=== PATIENT | male | born 1940 | race Caucasian/White ===

== ENCOUNTER → 2018-04-24 09:01 | Outpatient (POV) | payer MEDICARE, BC, SELFPAY | PROVIDERS: PCP Family Medicine; Visit Provider Otolaryngology | DX: Z00.00 Encounter for general adult medical examination without abnormal findings (principal) ==

== ENCOUNTER → 2018-05-07 09:15 | Outpatient (POV) | payer MEDICARE, BC, SELFPAY ==
[2018-05-07 09:19] VITALS: BP 150/87; PULSE 85; RESP 18; O2SAT 99
--- NOTE | 2018-05-07 10:46 | HMH.PMCON ---
Assessment and Plan (1) Right hip pain Current visit: Yes Status: Chronic Category: Medical Code(s): M25.551 - Pain in right hip (2) Neuropathy Current visit: Yes Status: Chronic Category: Medical Code(s): G62.9 - Polyneuropathy, unspecified - Assessment and plan all Dx Assessment and Plan for all problems:: I gave the patient information on neuro stimulation. I believe he would be a potential DRG stimulator candidate due to his specific right hip pain. I answered the patient's questions. Patient is going to call if he is interested in pursuing this avenue of treatment. This note was dictated using voice recognition software and may contain errors or omissions HPI - Data of Consult Consult date: 05/07/18 Requesting Physician: Sabina Montero APRN Primary Care Provider: Kerri Capone Family Provider: Referral Provider, - Consult Narrative Reason for consult: Right hip pain, neuropathy, pain due to kidney stents History of present illness: Mr. Graff is a 78 year old male presents today for completion in regards to his pain. Patient has multiple areas of pain including his right hip and right leg. Patient also has kidney stones that are placed every 3 months. Patient states that these are very painful for him. Patient primary care physician has been weaning him off his [place]. Patient states that he feels he would like to continue with his original Lortab #120 prescription. Patient and I had a discussion about neuro stimulation and works to his neuropathy and right hip pain. Patient is somewhat interested in this and I answered his questions. I also provided information for him. Patient and I discussed that we do not do medication management at this clinic. Patient rates his pain 4 out of 10 today. Mostly in his right hip. Patient states that walking and riding his lawnmower makes his pain worse. Patient states he has numbness and tingling in his right leg all the way down to his foot. Patient has had a right hip replacement in the past. Patient's tried physical therapy along with medications and anti-inflammatories are contraindicated due to his kidney issues. CC: Sabina Montero APRN [facility] History I have reviewed the patient's past medical history: Yes Medical History: Reports:: Cancer, Hyperlipidemia, Hypertension, Kidney Stones, Myocardial Infarction, Renal Disease Denies:: Diabetes Mellitus Type 1, Diabetes Mellitus Type 2, Internal Pacemaker Laterality Cases: Right: Total Hip Replacement Other Surgeries: Yes: Coronary Stent, Hernia Repair, Other (open heart surgery, kidney stones removed). No: Pacemaker Amputation: No Fractures: No - *Social History Smoking Status: Never smoker Tobacco Type: cigarettes # Packs/Day (cigarettes): 1 #Yrs smoked (if former smoker): 32 Alcohol Intake: never Alcohol Intake Frequency:: other Substance Use Type: denies use Occupational Status: retired Housing: house Household Members: spouse - Psychiatric History Expresses thoughts of harming self/others: None Suicide Plan Description: No Plan *Family Hx:: No significant family history Review of Systems - Review of Systems ROS General: no recent weight change, no fever, no sleep disturbances Respiratory: no cough, no shortness of air, no recurring pulmonary infections Cardiovascular/Peripheral Vascular: No chest pain, No palpitations, no edema, no shortness of breath. Gastrointestinal: no incontinence, normal bowel movements reported Genitourinary: no incontinence Musculoskeletal: Right hip pain, right leg pain Psychiatric: normal mood/ affect Neurological: [denies weakness in extremities], [denies balance issues] Meds Home Medications Medication Instructions Recorded Confirmed Type atorvastatin 40 mg tablet 40 mg PO HS 90 Days #90 01/18/18 03/18/18 History carvedilol 12.5 mg tablet 12.5 mg PO BID 90 Days #180 01/18/18 03/18/18 History furosemide 20 mg tablet 20 m
--- NOTE | 2018-05-07 10:49 | P.CONS_ITS ---
Assessment and Plan (1) Right hip pain Current visit: Yes Status: Chronic Category: Medical Code(s): M25.551 - Pain in right hip (2) Neuropathy Current visit: Yes Status: Chronic Category: Medical Code(s): G62.9 - Polyneuropathy, unspecified - Assessment and plan all Dx Assessment and Plan for all problems:: I gave the patient information on neuro stimulation. I believe he would be a potential DRG stimulator candidate due to his specific right hip pain. I answered the patient's questions. Patient is going to call if he is interested in pursuing this avenue of treatment. This note was dictated using voice recognition software and may contain errors or omissions HPI - Data of Consult Consult date: 05/07/18 Requesting Physician: Sabina Montero APRN Primary Care Provider: Kerri Capone Family Provider: Referral Provider, - Consult Narrative Reason for consult: Right hip pain, neuropathy, pain due to kidney stents History of present illness: Mr. Graff is a 78 year old male presents today for completion in regards to his pain. Patient has multiple areas of pain including his right hip and right leg. Patient also has kidney stones that are placed every 3 months. Patient states that these are very painful for him. Patient primary care physician has been weaning him off his [place]. Patient states that he feels he would like to continue with his original Lortab #120 prescription. Patient and I had a discussion about neuro stimulation and works to his neuropathy and right hip pain. Patient is somewhat interested in this and I answered his questions. I also provided information for him. Patient and I discussed that we do not do medication management at this clinic. Patient rates his pain 4 out of 10 today. Mostly in his right hip. Patient states that walking and riding his lawnmower makes his pain worse. Patient states he has numbness and tingling in his right leg all the way down to his foot. Patient has had a right hip replacement in the past. Patient's tried physical therapy along with medications and anti-inflammatories are contraindicated due to his kidney issues. CC: Sabina Montero APRN [facility] History I have reviewed the patient's past medical history: Yes Medical History: Reports:: Cancer, Hyperlipidemia, Hypertension, Kidney Stones, Myocardial Infarction, Renal Disease Denies:: Diabetes Mellitus Type 1, Diabetes Mellitus Type 2, Internal Pacemaker Laterality Cases: Right: Total Hip Replacement Other Surgeries: Yes: Coronary Stent, Hernia Repair, Other (open heart surgery, kidney stones removed). No: Pacemaker Amputation: No Fractures: No - *Social History Smoking Status: Never smoker Tobacco Type: cigarettes # Packs/Day (cigarettes): 1 #Yrs smoked (if former smoker): 32 Alcohol Intake: never Alcohol Intake Frequency:: other Substance Use Type: denies use Occupational Status: retired Housing: house Household Members: spouse - Psychiatric History Expresses thoughts of harming self/others: None Suicide Plan Description: No Plan *Family Hx:: No significant family history Review of Systems - Review of Systems ROS General: no recent weight change, no fever, no sleep disturbances Respiratory: no cough, no shortness of air, no recurring pulmonary infections Cardiovascular/Peripheral Vascular: No chest pain, No palpitations, no edema, no shortness of breath. Gastrointestinal: no incontinence, normal bowel movements reported Genitourinary: no incontinence Musculoskeletal: Right h
== END ==
PROVIDERS: PCP Family Medicine; Visit Provider Clinical Nurse Specialist Family Health
DX: G62.9 Polyneuropathy, unspecified (principal); M25.551 Pain in right hip
CPT/HCPCS: 99202

== ENCOUNTER 2018-05-12 20:50 | Observation (INO) ==
--- NOTE | 2018-05-12 21:39 | Emergency Department Note ---
ED Disposition Clinical Impression: Hypoxia Acute exacerbation of CHF (congestive heart failure) Qualifiers: Heart failure type: systolic Qualified Code(s): I50.23 - Acute on chronic systolic (congestive) heart failure Disposition: Admitted As Inpatient Condition on Discharge: Fair Time of Disposition: 23:39 - Critical Care Critical Care Time: Yes Attestation: On 05/12/18, the high probability of a clinically significant, sudden or life threatening deterioration of the following system(s) required my full and direct attention, intervention and personal management. The time I documented below is in addition to time spent performing reported procedures but includes the following listed in this critical care notation. Total Critical Care Time: 45 Vital system(s) involved:: Circulatory Failure, Respiratory Failure My critical care processes included: Assessment & monitoring of V/S, Initial and Re-exams, Data Review/Interpretation, Coordinating Care, Medication Orders and management, Documentation Medical Decision Making - Medical Records Medical records reviewed: Yes: I reviewed the patient's medical records. - Alex Inquiry Pt receiving controlled substance: No Vital Signs: 05/12/18 20:55 05/12/18 23:55 Temperature 98.7 F 98.4 F Temperature Source Oral Oral Pulse Rate 73 Pulse Rate [Right Radial] 80 Respiratory Rate 18 18 Blood Pressure 146/69 Blood Pressure [Right Arm] 180/80 Blood Pressure Mean [Right Arm] 113 Blood Pressure Source Automatic Cuff Blood Pressure Source [Right Arm] Automatic Cuff Blood Pressure Position Sitting Blood Pressure Position [Right Arm] Sitting 02 Sat by Pulse Oximetry 93 L Oxygen Delivery Method Nasal Cannula Nasal Cannula Oxygen Flow Rate (LPM) 4 4 - Lab Data Lab results reviewed: Yes: I reviewed the patient's lab results. Lab Results 05/12/18 00:15: Troponin I < 0.02 05/12/18 21:48: WBC 8.7, RBC 4.27 L, Hgb 13.3 L, Hct 44.8, MCV 105.0 H, MCH 31.1 , MCHC 29.6 L, RDW 15.3, Plt Count 202, MPV 7.7, Neut % (Auto) 51.2, Lymph % ( Auto) 37.3, [place] % (Auto) 8.4, Eos % (Auto) 2.8, Baso % (Auto) 0.4, Neut # (Auto ) 4.4, Lymph # (Auto) 3.2, [place] # (Auto) 0.7, Eos # (Auto) 0.2, Baso # (Auto) 0.0 05/12/18 21:48: Sodium 139, Potassium 4.1, Chloride 106, Carbon Dioxide 25, Anion Gap 12.1, BUN 23 H, Creatinine 2.35 H, Estimated Creat Clear 33, Estimated GFR 27 L, Est GFR ( Amer) 33 L, Glucose 109 H, Calcium 8.5, Total Bilirubin 0.6, AST 25, ALT 25, Alkaline Phosphatase 104, Troponin I < 0.02 , Total Protein 7.2, Albumin 3.7, Globulin 3.5 H, Albumin/Globulin Ratio 1.1, Amylase 56, Lipase 93 05/12/18 21:48: B-Natriuretic Peptide 570 H 05/12/18 22:21: Urine Color Yellow, Urine Appearance Sl cloudy, Urine pH 6.5, Ur Specific [place] 1.020, Urine Protein 2+, Urine Glucose (UA) Negative, Urine Ketones Negative, Urine Blood 3+, Urine Nitrate Negative, Urine Bilirubin Negative, Urine Urobilinogen 0.2, Ur Leukocyte Esterase Trace, Urine RBC Tntc, Urine WBC 3-5 Result diagrams: 05/12/18 21:48 05/12/18 21:48 Orders (Tests/Meds): ED MEDICATIONS Generic Name Dose Route Start Last Admin Trade Name Shannon PRN Reason Stop Dose Admin Hydrocodone Bitart/Acetaminophen tab 05/12/18 23:53 [place] 10/325mg Tablet PO 06/11/18 23:52 DAILY PRN [place] Moderate Pain Amlodipine Besylate 5 mg 05/13/18 09:00 Norvasc 5mg Tablet PO 06/12/18 08:59 DAILY BLANCA Aspirin 81 mg 05/13/18 09:00 Aspirin 81mg Chewable Tablet PO 06/12/18 08:59 DAILY BLANCA Atorvastatin Calcium 40 mg 05/13/18 21:00 Lipitor 40mg Tablet PO 06/12/18 20:59 HS [facility] Carvedilol 12.5 mg 05/13/18 09:00 Coreg 12.5mg Tablet PO 06/12/18 08:59 BID BLANCA Furosemide 40 mg 05/13/18 09:00 Lasix 20mg/2ml Vial IV 06/12/18 08:59 DAILY BLANCA Gabapentin 300 mg 05/13/18 21:00 Neurontin 300mg Capsule PO 06/12/18 20:59 HS BLANCA Discontinued Medications Generic Name Dose Route Start Last Admin Trade Name Shannon PRN Reason Stop Dose Admin Furosemide 20 mg 05/13/18 09:00 Lasix 20mg/2ml Vial IV 06/12/18 08:59 DAILY BLAN[place] Furosemide 20 mg 05/13/18 21:10 Lasix 20mg/2ml Vial IV 05/13/18 21:11 ONCE ONE Furosemide 20 mg 05/12/18 21:10 05/12/18 21:10 Lasix 20mg/2ml Vial IV 05/12/18 21:11 20 mg ONCE ONE Administration Furosemide 20 mg 05/12/18 23:39 05/12/18 23:47 Lasix 20mg/2ml Vial IV 05/12/18 23:40 20 mg ONCE ONE Administration Methylprednisolone Sodium Succinate 125 mg 05/12/18 21:04 05/12/18 21:05 Solu-Medrol 125mg/2ml Vial IV 05/12/18 21:05 125 mg ONCE ONE Administration ORDERS Category Date Time Status Consult to Cardiology [CONS] Routine Cons 05/13/18 08:30 Active XR chest portable Stat Exams 05/12/18 21:04 Taken BNP [B-Type Natriuretic Peptide] Timed Lab 05/13/18 06:30 Ordered Troponin I Q3H Lab 05/13/18 05:53 Ordered ECG Request by /Millie Routine Y 05/13/18 06:30 Ordered - Radiology Data #1 Image(s): Chest Image Reviewed: Yes I reviewed the patient's radiology image Preliminary Findings: Abnormal Cardiomegaly with cephalization of interstitial markings, suggestive of CHF - ECG Data Tracing #1 I reviewed this ECG and interpreted as documented below: No acute ischemic changes, no ectopies, heart rate is 88 ECG normal with no acute: arrhythmias, ischemia, conduction abnormalities, chamber hypertrophy Normal Sinus Rhythm: Yes - Physician Consults Physician Consulted: Dr. Aviles Time: 23:35 Reason -: Admission, Pt condition Comment/Response: Advise of patient's presentation and findings, agreeable with hospitalization. - Reevaluation(s) Time: 23:30 Reevaluation #1: Upon evaluation patient appears medically stable, no acute distress, pulse oximetry 95% on 5 L, however as soon as patient is being taken off his oxygen supply his O2 saturation drops down to 89% room air. I advised the patient of his need to be hospitalized, and to receive further inpatient care. Resp/SOB HPI - General Chief Complaint: Shortness of Breath/Dyspnea Stated Complaint: sob Time Seen by Provider: 05/12/18 21:15 Mode of Arrival: EMS Source of Information: Patient Limitations: No Limitations Description of Symptoms (Recalled from ER Triage Doc. 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 Patient has advised that he has been working out in hot weather, in his shed all day long. He came to the house, took a nap, and became short of breath shortly afterwards. He advised that he has a history of congestive heart failure and chronic renal failure as well. 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 For the past 5 days the patient has been working outdoors more than usual, and has been occasionally taking 40 mg of Lasix at least on 2 different occasions. He denies any chest pain. His pulse oximetry upon EMS arrival at his residence was 87% on room air. He was placed on oxygen immediately. Upon arrival to the emergency room his pulse oximetry is 90% on 2 L, his O2 requirement was increased to 5 L/min, bringing his O2 saturation to 9495%. He took Lasix 20 mg orally prior to arrival to the emergency room, approximately 45 minutes ago, without any significant improvement of his symptoms. MD Complaint: shortness of breath Onset (ago): day(s) (5) Severity: moderate Consistency/Duration: constant Relieving factors: oxygen, rest Exacerbating factors: lying flat Known history of: congestive heart failure Associated symptoms: wheezing Treatment prior to arrival: oxygen - Related Data Home oxygen amount: none Home Medications Medication Instructions Recorded Confirmed atorvastatin 40 mg tablet 40 mg PO HS 90 Days #90 01/18/18 05/13/18 carvedilol 12.5 mg tablet 12.5 mg PO BID 90 Days #180 01/18/18 05/13/18 furosemide 20 mg tablet 20 mg PO DIRECTED 01/18/18 05/13/18 gabapentin 300 mg capsule 300 mg PO BID 30 Days #90 01/18/18 05/13/18 Aspirin [Aspirin 81mg chewable 81 mg PO DAILY 01/26/18 05/13/18 tab] Hydrocodone/Acetaminophen [Lortab 10 mg PO DAILY PRN 03/18/18 05/13/18 10/325mg tablet] Amlodipine Besylate [Norvasc 5mg 5 mg PO HS 05/12/18 05/13/18 tablet] Iron,Carb/Vit C/Vit B12/Folic 1 each PO BID 05/13/18 05/13/18 [Iron 100 Plus Tablet] Allergies Allergy/AdvReac Type Severity Reaction Status Date / Time kidney dye Allergy Uncoded 03/18/18 22:52 [facility] History I have reviewed the patient's past medical history: Yes Medical History: Reports:: Hyperlipidemia, Hypertension, Kidney Stones, Myocardial Infarction, Renal Disease Denies:: Cancer, Diabetes Mellitus Type 1, Diabetes Mellitus Type 2, Internal Pacemaker, MRSA Laterality Cases: Right: Total Hip Replacement Other Surgeries: Yes: Coronary Stent, Hernia Repair, Other (open heart surgery, kidney stones removed). No: Pacemaker Amputation: No Fractures: No - Social History Smoking Status: Former smoker Tobacco Type: cigarettes # Packs/Day (cigarettes): 1 #Yrs smoked (if former smoker): 32 Alcohol Intake: never Alcohol Intake Frequency:: other Substance Use Type: denies use Occupational Status: retired Housing: house Household Members: spouse - Psychiatric History Expresses thoughts of harming self/others: None Suicide Plan Description: No Plan Family Hx:: No significant family history ROS Obtained: Yes All systems reviewed & no additional complaints, Yes Systems reviewed as appropriate & no additional complaints - Respiratory Respiratory: Yes system reviewed and no additional complaints, except as docu, Yes as per HPI, Yes dyspnea Physical Exam - General General appearance: alert, in distress (moderate) - Head Head exam: atraumatic, normocephalic, normal inspection - Neck Neck exam: Present: normal inspection, full ROM, trachea midline. Absent: meningismus, lymphadenopathy - Chest Chest inspection: Present: normal inspection, symmetric chest wall rise. Absent : tenderness - Respiratory Respiratory exam: Present: respiratory distress (mild), wheezes (Inspiratory and expiratory) - Cardiovascular Cardiovascular exam: Present: regular rate, normal rhythm. Absent: JVD - Abdominal Exam Abdominal exam: Present: soft, normal bowel sounds. Absent: distention, tenderness, guarding - Extremities Exam Extremities exam: Present: normal inspection, full ROM, normal capillary refill. Absent: calf tenderness - Back Exam Back exam: Present: normal inspection. Absent: tenderness - Neurological Exam Neurological exam: Present: alert, oriented X3 - Psychiatric Psychiatric exam: Present: normal affect, normal mood - Skin Skin exam: Present: warm, dry, intact, normal color
[2018-05-12 21:57] LABS: Basophils % 0.4 % (0.1-2.0); Eosinophils # 0.2 K/mm3 (0.0-0.4); Eosinophils % 2.8 % (0.1-12.0); Hematocrit 44.8 % (42.0-52.0); Hemoglobin 13.3 g/dL (14.1-18.0); Lymphocytes # 3.2 K/mm3 (0.7-4.5); Lymphocytes % 37.3 K/mm3 (10-50); Mean Corpuscular HGB Conc 29.6 g/dL (31.8-35.4); Mean Corpuscular Hemoglobin 31.1 pg (27.0-31.2); Mean Platelet Volume 7.7 fl (7.4-10.4); Monocytes # 0.7 K/mm3 (0.1-1.0); Monocytes % 8.4 % (1.7-9.3); Neutrophils # 4.4 K/mm3 (1.8-7.8); Neutrophils % 51.2 % (37.0-80.0); Platelet Count 202 K/mm3 (142-424); Red Blood Count 4.27 M/mm3 (4.60-6.20); Red Cell Distribution Width 15.3 % (11.5-17.5); White Blood Count 8.7 K/mm3 (4.8-10.8)
[2018-05-12 22:12] LABS: Alanine Aminotransferase 25 U/L (12-78); Albumin Level 3.7 gm/dL (3.4-5.0); Albumin/Globulin Ratio 1.1 (1.1-1.8); Alkaline Phosphatase 104 U/L (46-116); Amylase 56 U/L (25-125); Anion Gap 12.1 mEq/L (5-15); Aspartate Amino Transferase 25 U/L (15-37); Bilirubin,Total 0.6 mg/dL (0.2-1.0); Blood Urea Nitrogen 23 mg/dL (7-18); Calcium 8.5 mg/dL (8.5-10.1); Carbon Dioxide 25 mmol/L (21.0-32.0); Chloride 106 mmol/L (98-107); Globulin 3.5 gm/dl (1.3-3.2); Glucose 109 mg/dL (74-106); Lipase 93 u/L (73-393); Potassium 4.1 mmoL/L (3.5-5.1); Sodium 139 mmol/L (136-145); Total Protein,Serum 7.2 gm/dL (6.4-8.2)
[2018-05-12 22:27] LABS: Microscopic, Urine URINE MICROSCOPIC (MICROSCOPIC)
[2018-05-12 22:30] LABS: Appearance,Urine SL CLOUDY (Clear); Bilirubin,Urine Negative (Negative); Blood, Urine 3+ (Negative); Color,Urine YELLOW (Yellow); Glucose,Urine (UA) Negative (Negative); Ketones,Urine Negative (Negative); Leukocyte Esterase,Urine TRACE (Negative); PH,Urine 6.5 (5.0-8.5); Protein,Urine 2+ (Negative); Urobilinogen,Urine 0.2 EU/dl (0.2)
[2018-05-12 22:46] LABS: RBC,Urine TNTC #/hpf (0-3)
[2018-05-13 08:54] VITALS: BP 152/85
--- NOTE | 2018-05-13 08:57 | H&P/Discharge Summary ---
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 Came to the emergency department where he was found to have evidence of CHF, and was treated with IV Lasix with some improvement but had an oxygen requirement which is new for him. He was admitted overnight for oxygenation therapy, another dose of IV Lasix and further observation. Patient moved here from [place] about 5 years ago. He has a family doctor in [place] but is wishing to change to a [facility] location. He is very pleasant and extremely loquacious and gives a long and detailed history of kidney dysfunction, some chronic pain issues managed with very sporadic use of Lortab, and his diastolic CHF issues. 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 [facility] History I have reviewed the patient's past medical history: Yes Medical History: Reports:: Congestive Heart Failure, Hyperlipidemia, Hypertension, Kidney Stones, Myocardial Infarction, Renal Disease Denies:: Cancer, Diabetes Mellitus Type 1, Diabetes Mellitus Type 2, Home Oxygen, Internal Pacemaker, MRSA Other Medical History: Reports: Chemotherapy, Radiation Therapy Laterality Cases: Right: Total Hip Replacement Other Surgeries: Yes: CABG, Coronary Stent, Hernia Repair, Open Heart Surgery, Ureter Stent, Other (open heart surgery, kidney stones removed). No: Pacemaker Amputation: No Fractures: No - *Social History Educational Level: Completed High School Smoking Status: Former smoker Tobacco Type: cigarettes # Packs/Day (cigarettes): 1 #Yrs smoked (if former smoker): 32 Alcohol Intake: never Alcohol Intake Frequency:: other Substance Use Type: denies use Occupational Status: retired Housing: house Household Members: spouse - Psychiatric History Expresses thoughts of harming self/others: None Suicide Plan Description: No Plan *Family Hx:: No significant family history Review of Systems - Review of Systems Review of systems:: pertinent systems reviewed and negative unless documented below Exam Vital signs and Labs for Last 24 Hours: Temp Pulse Resp BP Pulse Ox 97.7 F 76 18 108/56 98 05/13/18 04:00 06/24/18 04:00 05/13/18 04:00 05/13/18 04:00 05/13/18 04:00 Laboratory Results - last 24 hr 05/12/18 00:15: Troponin I < 0.02 05/12/18 21:48: WBC 8.7, RBC 4.27 L, Hgb 13.3 L, Hct 44.8, MCV 105.0 H, MCH 31.1 , MCHC 29.6 L, RDW 15.3, Plt Count 202, MPV 7.7, Neut % (Auto) 51.2, Lymph % ( Auto) 37.3, Harris % (Auto) 8.4, Eos % (Auto) 2.8, Baso % (Auto) 0.4, Neut # (Auto ) 4.4, Lymph # (Auto) 3.2, Harris # (Auto) 0.7, Eos # (Auto) 0.2, Baso # (Auto) 0.0 05/12/18 21:48: Sodium 139, Potassium 4.1, Chloride 106, Carbon Dioxide 25, Anion Gap 12.1, BUN 23 H, Creatinine 2.35 H, Estimated Creat Clear 33, Estimated GFR 27 L, Est GFR ( Amer) 33 L, Glucose 109 H, Calcium 8.5, Total Bilirubin 0.6, AST 25, ALT 25, Alkaline Phosphatase 104, Troponin I < 0.02 , Total Protein 7.2, Albumin 3.7, Globulin 3.5 H, Albumin/Globulin Ratio 1.1, Amylase 56, Lipase 93 05/12/18 21:48: B-Natriuretic Peptide 570 H 05/12/18 22:21: Urine Color Yellow, Urine Appearance Sl cloudy, Urine pH 6.5, Ur Specific [place] 1.020, Urine Protein 2+, Urine Glucose (UA) Negative, Urine Ketones Negative, Urine Blood 3+, Urine Nitrate Negative, Urine Bilirubin Negative, Urine Urobilinogen 0.2, Ur Leukocyte Esterase Trace, Urine RBC Tntc, Urine WBC 3-5 05/13/18 02:53: Troponin I < 0.02 05/13/18 05:53: Troponin I < 0.02 05/13/18 05:53: B-Natriuretic Peptide 603 H I & O for Last 24 hours: Intake & Output 05/10/18 05/11/18 05/12/18 05/13/18 11:59 11:59 11:59 11:59 Output Total 1899 / 1900 Balance -0 / -1900 Weight 191 lb 1 oz Narrative: This morning after Lasix and almost 2 L of urine output patient is awake, feeling much better. Room air oxygen saturation 95%. Lungs have good air movement, heart rate regular. Abdomen is slightly tender but apparently this is his baseline given his implanted ureteral stents. He has no edema or clubbing. He is intact neurologically and as noted before very talkative. Does exhibit some tangential thinking but is oriented and without evidence of disordered thinking. Hospital Course Hospital Course: Patient was admitted as noted, cautiously diuresed. Oxygen saturations improved nicely. This morning he was doing much better. Creatinine was monitored. No exchange underwriting consultant baseline significantly. Patient will be sent home today. I have instructed him to take his Lasix Monday as well as her other medications, we will follow him up in our office on for initiation of primary care. Results Labs on day of discharge: Labs from last 24 hours 05/13/18 05/13/18 05/13/18 05:53 05:53 02:53 WBC RBC Hgb Hct MCV MCH MCHC RDW Plt Count MPV Neut % (Auto) Lymph % (Auto) Harris % (Auto) Eos % (Auto) Baso % (Auto) Neut # (Auto) Lymph # (Auto) Harris # (Auto) Eos # (Auto) Baso # (Auto) Sodium Potassium Chloride Carbon Dioxide Anion Gap BUN Creatinine Estimated Creat Clear Estimated GFR Est GFR ( Amer) Glucose Calcium Total Bilirubin AST ALT Alkaline Phosphatase Troponin I < 0.02 < 0.02 B-Natriuretic Peptide 603 H Total Protein Albumin Globulin Albumin/Globulin Ratio Amylase Lipase Urine Color Urine Appearance Urine pH Ur Specific [place] Urine Protein Urine Glucose (UA) Urine Ketones Urine Blood Urine Nitrate Urine Bilirubin Urine Urobilinogen Ur Leukocyte Esterase Urine RBC Urine WBC 05/12/18 05/12/18 05/12/18 22:21 21:48 21:48 WBC RBC Hgb Hct MCV MCH MCHC RDW Plt Count MPV Neut % (Auto) Lymph % (Auto) Harris % (Auto) Eos % (Auto) Baso % (Auto) Neut # (Auto) Lymph # (Auto) Harris # (Auto) Eos # (Auto) Baso # (Auto) Sodium 139 Potassium 4.1 Chloride 106 Carbon Dioxide 25 Anion Gap 12.1 BUN 23 H Creatinine 2.35 H Estimated Creat Clear 33 Estimated GFR 27 L Est GFR ( Amer) 33 L Glucose 109 H Calcium 8.5 Total Bilirubin 0.6 AST 25 ALT 25 Alkaline Phosphatase 104 Troponin I < 0.02 B-Natriuretic Peptide 570 H Total Protein 7.2 Albumin 3.7 Globulin 3.5 H Albumin/Globulin Ratio 1.1 Amylase 56 Lipase 93 Urine Color Yellow Urine Appearance Sl cloudy Urine pH 6.5 Ur Specific [place] 1.020 Urine Protein 2+ Urine Glucose (UA) Negative Urine Ketones Negative Urine Blood 3+ Urine Nitrate Negative Urine Bilirubin Negative Urine Urobilinogen 0.2 Ur Leukocyte Esterase Trace Urine RBC Tntc Urine WBC 3-5 05/12/18 05/12/18 21:48 00:15 WBC 8.7 RBC 4.27 L Hgb 13.3 L Hct 44.8 MCV 105.0 H MCH 31.1 MCHC 29.6 L RDW 15.3 Plt Count 202 MPV 7.7 Neut % (Auto) 51.2 Lymph % (Auto) 37.3 Harris % (Auto) 8.4 Eos % (Auto) 2.8 Baso % (Auto) 0.4 Neut # (Auto) 4.4 Lymph # (Auto) 3.2 Harris # (Auto) 0.7 Eos # (Auto) 0.2 Baso # (Auto) 0.0 Sodium Potassium Chloride Carbon Dioxide Anion Gap BUN Creatinine Estimated Creat Clear Estimated GFR Est GFR ( Amer) Glucose Calcium Total Bilirubin AST ALT Alkaline Phosphatase Troponin I < 0.02 B-Natriuretic Peptide Total Protein Albumin Globulin Albumin/Globulin Ratio Amylase Lipase Urine Color Urine Appearance Urine pH Ur Specific [place] Urine Protein Urine Glucose (UA) Urine Ketones Urine Blood Urine Nitrate Urine Bilirubin Urine Urobilinogen Ur Leukocyte Esterase Urine RBC Urine WBC Discharge Medications Discharge Medications: Home Medications Medication Instructions Recorded Confirmed Type atorvastatin 40 mg tablet 40 mg PO HS 90 Days #90 01/18/18 05/13/18 History carvedilol 12.5 mg tablet 12.5 mg PO BID 90 Days #180 01/18/18 05/13/18 History furosemide 20 mg tablet 20 mg PO DIRECTED 01/18/18 05/13/18 History gabapentin 300 mg capsule 300 mg PO BID 30 Days #90 01/18/18 05/13/18 History Aspirin [Aspirin 81mg chewable 81 mg PO DAILY 01/26/18 05/13/18 History tab] Hydrocodone/Acetaminophen [Lortab 10 mg PO DAILY PRN 03/18/18 05/13/18 History 10/325mg tablet] Amlodipine Besylate [Norvasc 5mg 5 mg PO HS 05/12/18 05/13/18 History tablet] Iron,Carb/Vit C/Vit B12/Folic 1 each PO BID 05/13/18 05/13/18 History [Iron 100 Plus Tablet] Disposition Disposition: Home, Self-Care
[2018-05-13 09:03] LABS: Anion Gap 16.9 mEq/L (5-15); Calcium 8.6 mg/dL (8.5-10.1); Potassium 3.9 mmoL/L (3.5-5.1)
== END 2018-05-13 10:15 | disposition home or self-care (01) ==
LOC: ER 20:50 → 2ND 20:50
PROVIDERS: ADMIT Internal Medicine Adolescent Medicine; ATTEND Internal Medicine Adolescent Medicine

== ENCOUNTER → 2018-06-04 07:29 | Outpatient (CLI) | payer MEDICARE, BC, SELFPAY ==
[2018-06-04 09:41] LABS: Alanine Aminotransferase 23 U/L (12-78); Alkaline Phosphatase 94 U/L (46-116); Anion Gap 11.2 mEq/L (5-15); Aspartate Amino Transferase 16 U/L (15-37); Bilirubin,Total 0.4 mg/dL (0.2-1.0); Blood Urea Nitrogen 19 mg/dL (7-18); Calcium 8.3 mg/dL (8.5-10.1); Carbon Dioxide 28 mmol/L (21.0-32.0); Chloride 112 mmol/L (98-107); Chol/HDL Ratio 3.1 (1-3.5); Cholesterol 102 mg/dL (140-200); Creatinine,Serum 1.99 mg/dL (0.70-1.30); Estimated Glomerular Filt Rate 33 ml/min (>60); GFR (African American) 40 ML/MIN (>60); Globulin 2.9 gm/dl (1.3-3.2); Glucose 99 mg/dL (74-106); HDL Cholesterol 33 mg/dL (27-67); LDL Cholesterol 53 mg/dL (0-130); Magnesium 1.8 mg/dL (1.4-2.2); Potassium 4.2 mmoL/L (3.5-5.1); Sodium 147 mmol/L (136-145); Total Protein,Serum 5.9 gm/dL (6.4-8.2); Triglycerides 78 mg/dL (30-200); VLDL Cholesterol 16 mg/dL (0-40)
== END ==
PROVIDERS: Visit Provider Clinical Nurse Specialist Adult Health
DX: E78.5 Hyperlipidemia, unspecified (principal); R00.2 Palpitations; Z79.899 Other long term (current) drug therapy
CPT/HCPCS: 36415; 80053; 80061; 83735

== ENCOUNTER → 2018-10-23 08:48 | Outpatient (POV) | payer MEDICARE, BC, SELFPAY | PROVIDERS: Visit Provider Otolaryngology | DX: Z00.00 Encounter for general adult medical examination without abnormal findings (principal) ==

== ENCOUNTER → 2019-03-05 09:04 | Outpatient (CLI) | payer MEDICARE, BC, SELFPAY ==
[2019-03-05 09:08] LABS: Microscopic, Urine URINE MICROSCOPIC (MICROSCOPIC)
[2019-03-05 09:42] LABS: Appearance,Urine CLEAR (Clear); Basophils % 0.2 % (0.1-2.0); Bilirubin,Urine Negative (Negative); Blood, Urine 3+ (Negative); Color,Urine YELLOW (Yellow); Eosinophils # 0.2 K/mm3 (0.0-0.4); Eosinophils % 3.6 % (0.1-12.0); Glucose,Urine (UA) Negative (Negative); Hematocrit 39.8 % (42.0-52.0); Hemoglobin 12.5 g/dL (14.1-18.0); Ketones,Urine Negative (Negative); Leukocyte Esterase,Urine 1+ (Negative); Lymphocytes # 1.6 K/mm3 (0.7-4.5); Lymphocytes % 23.6 % (10-50); Mean Corpuscular HGB Conc 31.4 g/dL (31.8-35.4); Mean Corpuscular Hemoglobin 32.6 pg (27.0-31.2); Mean Corpuscular Volume 103.9 fl (80-94); Mean Platelet Volume 8.1 fl (7.4-10.4); Monocytes # 0.6 K/mm3 (0.1-1.0); Monocytes % 8.9 % (1.7-9.3); Neutrophils # 4.3 K/mm3 (1.8-7.8); Neutrophils % 63.7 % (37.0-80.0); Nitrate,Urine Negative (Negative); Platelet Count 157 K/mm3 (142-424); Protein,Urine 2+ (Negative); Red Blood Count 3.83 M/mm3 (4.60-6.20); Red Cell Distribution Width 15.5 % (11.5-17.5); Urobilinogen,Urine 0.2 EU/dl (0.2); White Blood Count 6.7 K/mm3 (4.8-10.8)
[2019-03-05 10:19] LABS: Albumin Level 3.4 gm/dL (3.4-5.0); Anion Gap 13.1 mEq/L (5-15); Bacteria,Urine 1+ /lpf; Blood Urea Nitrogen 29 mg/dL (7-18); Calcium 8.7 mg/dL (8.5-10.1); Carbon Dioxide 27 mmol/L (21.0-32.0); Chloride 106 mmol/L (98-107); Creatinine,Serum 2.26 mg/dL (0.70-1.30); Estimated Glomerular Filt Rate 28 ml/min (>60); GFR (African American) 34 ML/MIN (>60); Glucose 108 mg/dL (74-106); Phosphorous 3.4 mg/dL (2.4-4.9); Potassium 4.1 mmoL/L (3.5-5.1); Sodium 142 mmol/L (136-145)
[2019-03-05 11:17] LABS: Creatinine,Urine Random 116 mg/dL (20-320)
[2019-03-05 11:37] LABS: Total Protein,Urine Random 284.6 mg/dL (0.0-11.9)
== END ==
PROVIDERS: Visit Provider Internal Medicine Nephrology
DX: D64.9 Anemia, unspecified (principal); R80.9 Proteinuria, unspecified; N18.3 Chronic kidney disease, stage 3 (moderate)
CPT/HCPCS: 36415; 80069; 81001; 82570; 84155; 85025; 87086

== ENCOUNTER → 2019-10-22 09:54 | Outpatient (POV) | payer MEDICARE, BC, SELFPAY | PROVIDERS: Visit Provider Otolaryngology | DX: Z00.00 Encounter for general adult medical examination without abnormal findings (principal) ==

== ENCOUNTER 2019-12-12 11:48 | Inpatient (IN) ==
--- NOTE | 2019-12-12 12:02 | Emergency Department Note ---
ED Disposition Clinical Impression: Sinus tachycardia, DDD (degenerative disc disease), cervical LLL pneumonia Qualifiers: Pneumonia type: due to unspecified organism Qualified Code(s): J18.9 - Pneumonia, unspecified organism Right shoulder pain Qualifiers: Chronicity: acute Qualified Code(s): M25.511 - Pain in right shoulder Chronic kidney disease Qualifiers: Chronic kidney disease stage: unspecified stage Qualified Code(s): N18.9 - Chronic kidney disease, unspecified Sepsis Qualifiers: Sepsis type: sepsis due to unspecified organism Sepsis acute organ dysfunction status: unspecified Qualified Code(s): A41.9 - Sepsis, unspecified organism Strain of right shoulder Qualifiers: Encounter type: initial encounter Qualified Code(s): S46.911A - Strain of unspecified muscle, fascia and tendon at shoulder and upper arm level, right arm, initial encounter Leukocytosis Qualifiers: Leukocytosis type: unspecified Qualified Code(s): D72.829 - Elevated white blood cell count, unspecified Dyspnea Qualifiers: Dyspnea type: unspecified Qualified Code(s): R06.00 - Dyspnea, unspecified DJD (degenerative joint disease), cervical Qualifiers: Spinal osteoarthritis complication: unspecified spinal osteoarthritis Qualified Code(s): M47.812 - Spondylosis without myelopathy or radiculopathy, cervical region Disposition: Admitted as Observation Condition on Discharge: Fair (Stable) Referrals: Kerri Capone [Primary Care Provider] - Alex Patiño MD [Staff Physician] - Time of Disposition: 13:54 - Critical Care Critical Care Time: No Attestation: On 12/12/19, the high probability of a clinically significant, sudden or life threatening deterioration of the following system(s) required my full and direct attention, intervention and personal management. The time I documented below is in addition to time spent performing reported procedures but includes the following listed in this critical care notation. Medical Decision Making - Medical Records Medical records reviewed: Yes: I reviewed the patient's medical records. - Alex Inquiry Pt receiving controlled substance: No Alex was queried for this patient: No Vital Signs: 12/12/19 12:06 12/12/19 12:12 12/12/19 12:27 Temperature 97.8 F Temperature Source Oral Pulse Rate [Left Radial] 120 H 117 H 116 H Respiratory Rate 20 Blood Pressure [Right Arm] 102/61 L 90/52 L 77/52 L Blood Pressure Mean [Right Arm] 74 64 60 Blood Pressure Source [Right Arm] Automatic Cuff Blood Pressure Position [Right Arm] Sitting Sitting Sitting 02 Sat by Pulse Oximetry 94 L 93 L 91 L Oxygen Delivery Method Room Air Room Air Room Air 12/12/19 13:07 12/12/19 13:26 12/12/19 13:33 Temperature Temperature Source Pulse Rate [Left Radial] 113 H 114 H 112 H Respiratory Rate Blood Pressure [Right Arm] 90/68 L 94/61 L 79/52 L Blood Pressure Mean [Right Arm] 75 72 61 Blood Pressure Source [Right Arm] Automatic Cuff Automatic Cuff Blood Pressure Position [Right Arm] Sitting Sitting Sitting 02 Sat by Pulse Oximetry 93 L 92 L 92 L Oxygen Delivery Method Room Air Room Air Room Air - Lab Data Lab Results 12/12/19 12:00: WBC 16.4 H, RBC 3.91 L, Hgb 12.9 L, Hct 42.4, MCV 108.4 H, MCH 33.1 H, MCHC 30.5 L, RDW 14.5, Plt Count 159, MPV 8.5, Neut % (Auto) 74.5, Lymph % (Auto) 12.8, Posey % (Auto) 11.3 H, Eos % (Auto) 1.1, Baso % (Auto) 0.3, Neut # (Auto) 12.2 H, Lymph # (Auto) 2.1, Posey # (Auto) 1.9 H, Eos # (Auto) 0.2, Baso # (Auto) 0.1, Total Counted 100, Neutrophils % (Manual) 59, Lymphocytes % (Manual) 25, Monocytes % (Manual) 16 H, Platelet Estimate Normal, Poikilocytosis 1+, Ani socytosis 2+, Macrocytosis 2+, Acanthocytes (Spur) 1+ 12/12/19 12:00: Sodium 141, Potassium 4.8, Chloride 106, Carbon Dioxide 26, Anion Gap 13.8, BUN 26 H, Creatinine 2.80 H, Estimated Creat Clear 27, Estimated GFR 22 L, Est GFR ( Amer) 27 L, Glucose 146 H, Calcium 8.6, Total Bilirubin 0.6, AST 24, ALT 19, Alkaline Phosphatase 103, Troponin I < 0.02, Total Protein 6.6, Albumin 3.2 L, Globulin 3.4 H, Albumin/Globulin Ratio 0.9 L 12/12/19 12:00: Lactate 2.1 H Result diagrams: 12/12/19 12:00 12/12/19 12:00 Orders (Tests/Meds): ED MEDICATIONS Generic Name Dose Route Start Last Admin Trade Name Freq PRN Reason Stop Dose Admin Piperacillin Sod/Tazobactam 50 mls @ 100 mls/hr 12/12/19 13:45 12/12/19 13:51 Sod 3.375 gm/ Sodium Chloride IV 12/26/19 13:44 100 mls/hr Q6H BLANCA Administration Protocol Vancomycin HCl 1,500 mg/ 250 mls @ 125 mls/hr 12/12/19 13:45 Sodium Chloride IV 12/12/19 15:44 ONCE ONE Sodium Chloride 1,550 mls @ 999 mls/hr 12/12/19 13:45 12/12/19 13:46 Sod Chlor 0.9% 1000ml Bag IV 12/12/19 15:18 999 mls/hr .Q1H34M BLANCA Administration Miscellaneous 1 each 12/12/19 13:45 Vancomycin Consult Request * 01/11/20 13:44 CONSULT PHARMACY BLANCA Sodium Chloride 3 ml 12/12/19 13:38 Sodium Chloride 3% 15ml Neb 01/11/20 13:37 ONCE PRN INDUCE SPUTUM COLLECTION Discontinued Medications Generic Name Dose Route Start Last Admin Trade Name Freq PRN Reason Stop Dose Admin Albuterol/Ipratropium 3 ml 12/12/19 13:34 Duoneb 3ml Neb 12/12/19 13:35 ONCE ONE Sodium Chloride 1,000 mls @ 999 mls/hr 12/12/19 12:15 12/12/19 12:16 Sod Chlor 0.9% 1000ml Bag IV 12/12/19 13:15 999 mls/hr .Q1H1M BLANCA Administration Sodium Chloride 1,000 mls @ 999 mls/hr 12/12/19 13:45 Sod Chlor 0.9% 1000ml Bag IV 12/12/19 14:45 .Q1H1M BLANCA Morphine Sulfate 2 mg 12/12/19 12:29 12/12/19 13:00 Morphine 2mg/Ml Syringe IV 12/12/19 12:30 Not Given ONCE ONE Ondansetron HCl 4 mg 12/12/19 12:29 12/12/19 12:36 Zofran 4mg/2ml Vial IV 12/12/19 12:30 4 mg ONCE ONE Administration ORDERS Category Date Time Status Influenza A&B Antigens, Rapid [Rapid Influenza A&B Lab 12/12/19 13:42 Received Antigens] Stat Troponin I Q3H Lab 12/12/19 15:15 Ordered Troponin I Q3H Lab 12/12/19 18:15 Ordered Blood Culture Stat Micro 12/12/19 12:00 Received Sputum Culture & Gram Stain Stat Micro 12/12/19 13:38 Ordered - Radiology Data #1 Image(s): Shoulder (Right) Image Reviewed: Yes I reviewed the patient's radiology results [place] [address] [place] [id number] XRay Report Signed Patient: Yehuda Graff MR#: [id number] : 1940 Acct:[id number] Age/Sex: 79 / M ADM Date: 12/12/19 Loc: ER Attending Dr: Ordering Physician: Annabelle Malin III, DO Date of Service: 12/12/19 Procedure(s): XR shoulder RT min 2V Accession Number(s): [id number] cc: Redd Tyler MD; Kerri Capone PROCEDURE: XR SHOULDER RT MIN 2V CLINICAL INDICATION: shoulder pain COMPARISON: No exams were available for comparison FINDINGS: There is mild acromioclavicular and glenohumeral joint arthropathy with no acute fracture dislocation or destructive lesion. IMPRESSION: Degenerative findings as described. No acute findings. Dictated by: Redd Tyler 12/12/2019 13:09 Electronically signed by Redd Tyler in [place] 12/12/2019 13:09 #2 Image(s): Chest, C-Spine Image Reviewed: Yes I reviewed the patient's radiology image [place] [address] [place] [id number] XRay Report Signed Patient: Yehuda Graff MR#: [id number] : 1940 Acct:[id number] Age/Sex: 79 / M ADM Date: 12/12/19 Loc: ER Attending Dr: Ordering Physician: Annabelle Malin III, DO Date of Service: 12/12/19 Procedure(s): XR chest portable Accession Number(s): [id number] cc: Redd Tyler MD; Kerri Capone ~ PROCEDURE: XR CHEST PORTABLE CLINICAL HISTORY: sob COMPARISON: CXR2 XR chest AP from 07/17/2018 CXR2V XR chest 2V from 10/13/2018 CXR2V XR chest 2V from 11/20/2018 FINDINGS: The cardiomediastinal silhouette and pulmonary vascularity are within normal limits. Postsurgical change from median sternotomy is noted A small amount of parenchymal density is seen in the left lung base consistent with mild infiltrate or atelectasis. No acute bony abnormalities. IMPRESSION: Small amount of left basilar atelectasis or pneumonia. Dictated by: Redd Tyler 12/12/2019 13:08 Electronically signed by Redd Tyler in [place] 12/12/2019 13:[address] [id number] [address] Scan Report Signed Patient: Yehuda Graff MR#: [id number] : 1940 Acct:[id number] Age/Sex: 79 / M ADM Date: 12/12/19 Loc: ER Attending Dr: Ordering Physician: Annabelle Malin III, DO Date of Service: 12/12/19 Procedure(s): CT cervical spine wo con Accession Number(s): [id number] cc: Redd Tyler MD; Annabelle Malin III, DO; Kerri Capone ~ PROCEDURE: CT CERVICAL SPINE WO CON CLINICAL INDICATION: Right sided pain, right shoulder pain. COMPARISON: No exams were available for comparison TECHNIQUE: Axial images obtained with sagittal and coronal reformats. All CT scans at the facility use one or more dose reduction, viz: automated exposure control, ma/kV adjustment per patient size (including targeted exams where dose is matched to indication, i.e. head), or iterative reconstruction technique. Axial spiral CT scanning performed of the cervical spine beginning at the base of the skull and continuing to the upper T-spine. 3-D multiplanar reconstruction with 3-D manipulation of volumetric data set in image rendering was completed by the radiologist and/or technologist with the supervision of the radiologist on independent workstation. FINDINGS: No fracture nor subluxation is evident. Normal prevertebral soft tissues. There is degenerative loss C3-4 C5-6 and C6-7 disc space heights. At C2-3 there is asymmetrical right facet hypertrophy without high-grade foraminal stenosis. At C3-4 there is bilateral facet and uncinate process hypertrophy with bilateral foraminal stenoses. At C4-5 a moderate sized central disc herniation is noted causing central spinal canal stenosis. There is left facet hypertrophy without significant foraminal stenosis. At C5-6 there is marginal osteophyte eccentric to the right of midline including the foraminal region. There is mild central spinal canal stenosis and right foraminal stenosis. At C6-7 there is marginal osteophyte with extradural mass effect on the thecal sac and encroachment of bilateral neural foramina with mild central canal and bilateral foraminal stenosis. Normal C1/C2 relationships. Apices of lungs are clear with no acute findings. Incidental note is made of mucosal thickening in the bilateral ethmoid sinuses and there are mucous retention cysts and/or mucosal thickening in the maxillary sinuses consistent with sinusitis. IMPRESSION: Multilevel degenerative disc and facet disease as described with central canal and foraminal stenoses. Dictated by: Redd Tyler 12/12/2019 13:41 Electronically signed by Redd Tyler in [place] 12/12/2019 13:41 - CT Data CT Scan: C-Spine, Abdomen, Pelvis Time Received: 13:40 Findings Narrative: [address] [id number] [place] Scan Report Signed Patient: Yehuda Graff MR#: [id number] : 1940 Acct:[id number] Age/Sex: 79 / M ADM Date: 12/12/19 Loc: ER Attending Dr: Ordering Physician: Annabelle Malin III, DO Date of Service: 12/12/19 Procedure(s): CT abdomen pelvis wo con Accession Number(s): [id number] cc: Redd Tyler MD; Annabelle Malin III DO; Kerri Capone PROCEDURE: CT ABDOMEN PELVIS WO CON CLINICAL INDICATION: LLQ abdominal pain, Hx of renal stents COMPARISON: ABDPELWO CT abdomen pelvis wo con from 07/17/2018 TECHNIQUE: Axial images obtained with sagittal and coronal reformats. All CT scans at the facility use one or more dose reduction, viz: automated exposure control, ma/kV adjustment per patient size (including targeted exams where dose is matched to indication, i.e. head), or iterative reconstruction technique. FINDINGS: LOWER THORAX: There is a small amount of parenchymal density in both lung bases felt to be most consistent with atelectasis. ABDOMEN & PELVIS: Double-pigtail urinary stents are seen proximal portions in both renal pelves which are mildly dilated and distal portions in the urinary bladder. The prominent right pyelocaliectasis described previously is diminished. Hypodensity in the upper pole of the left kidney 1.9 centimeters is not significantly changed and likely a cortical cyst. Calcifications consistent with vascular calcifications and or nonobstructing stones are seen at both renal saida and to greatest extent in the lower pole of left kidney. Nonspecific stranding of bilateral perinephric fat planes is noted. No intestinal obstruction or free air. No evidence of appendicitis or diverticulitis. A small amount nonspecific free fluid is seen in the pelvis. There is colonic diverticulosis greatest in the left colon without diverticulitis. Radiodensity consistent with surgical mesh from anterior hernia repair is noted. There is no residual hernia. Aortic endo graft is noted within a 3.8 centimeter abdominal aortic aneurysm beginning at the level adjacent to the renal arteries and extending to the right common iliac regions the. By femoral vascular graft is seen in the pelvis. Fluid collection is seen in the left inguinal canal. This may be in communication with free intraperitoneal fluid. Left hydrocele would also have to be considered. There has been interval increasing compression deformity of L2 with no change in compression deformities at L3 and L5. There has been total right hip replacement and there is extensive beam hardening artifact degradation of the images. There is questionable destruction of the posterior cortex right greater trochanter and there is possibly an overlying fluid collection 2.4 x 4.5 centimeters. Clinical correlation is recommended.. Clinical correlation for possible osteomyelitis and abscess should be considered. Postsurgical bone defect and postoperative seroma or lymphocele could give this appearance. IMPRESSION: Placement of double pigtail urinary stents with no evidence of stent dysfunction or mechanical obstruction of the kidneys. Nonobstructing nephrolithiasis. Small amount of nonspecific free fluid in the pelvis with some fluid in the left inguinal canal. Interval appearance of destruction of bony cortex of the right greater trochanter with overlying fluid collection. A septic inflammatory process is not excluded. New additional compression deformity of L2 Dictated by: Redd Tyler 12/12/2019 13:35 Electronically signed by Redd Tyler in [place] 12/12/2019 13:35 - ECG Data Tracing #1 I reviewed this ECG and interpreted as documented below: (Patient's EKG at 12:05 PM showed a wide QRS tachycardia at 119 bpm, LAD, left bundle branch block.) Medical Decision Narrative: 13:57 I have evaluated this patient. EKG, chest x-ray report, CT cervical spine report and CT abdomen pelvis without contrast report reviewed. All labs reviewed. Patient received received Toradol 30 mg IV push and Zofran 4 mg IV push for his pain. He is also received a DuoNeb treatment. I have ordered Zosyn 3.375 mg IV piggyback every 6 hours and vancomycin with dosing by pharmacy for what appears to be a left lower lobe pneumonia. Patient has been tachycardic and has had a couple episodes of hypotension while here in the ER. Patient's lactic acid is mildly elevated. He meets sepsis criteria so the antibiotics as above were ordered as well as a 30 mL/kg IV fluid bolus. I have discussed this patient's case with Dr. Patiño who is on-call for service as this patient does not have a local doctor on staff here at [facility]. He is agreed to admit the patient. I have discussed results of work- up, diagnosis and care plan with patient and sister. They all understand, agree and all questions answered. Will now be admitted. General Adult HPI - General Stated complaint: SOA Time Seen by Provider: 12/12/19 11:59 Mode of Arrival: Ambulatory Source of Information: Patient, Relative Limitations: No Limitations - History of Present Illness HPI narrative: She is here in the emergency room via private vehicle from home with multiple complaints. Patient is complaining having right shoulder pain and difficulty moving his right shoulder since yesterday. Patient states that he was carrying a flag pole and it had bumped the ceiling in his garage a couple times jerking on his shoulder. Patient has had pain since that time. He also has been developing some increased shortness of breath and dyspnea on exertion. Pt has had a recent cough and some dyspnea. Pt recently treated a couple weeks ago with Zithromax and Doxycycline PO. He has a history of congestive heart failure. No chest pain. Patient also states that he went to sit in the chair earlier this morning and he had a sudden onset of sharp left lower quadrant abdominal pain that lasted for a short while and then completely resolved. This time he has no abdominal pain. No vomiting no diarrhea no constipation. No fever. Patient does have a history of bilatera l renal J stents. - Related Data Home Medications Medication Instructions Recorded Confirmed atorvastatin 40 mg tablet 40 mg PO HS 90 Days #90 01/18/18 12/12/19 carvedilol 12.5 mg tablet 12.5 mg PO BID 90 Days #180 01/18/18 12/12/19 furosemide 20 mg tablet 20 mg PO DIRECTED 01/18/18 12/12/19 gabapentin 300 mg capsule 300 mg PO BID 30 Days #90 01/18/18 12/12/19 Aspirin [Aspirin 81mg chewable 81 mg PO DAILY 01/26/18 12/12/19 tab] Iron,Carb/Vit C/Vit B12/Folic 1 each PO BID 05/13/18 12/12/19 [Iron 100 Plus Tablet] Hydrocodone/Acetaminophen 1 tab PO NEEDED PRN 10/13/18 12/12/19 [Hydrocodone-Acetamin 7.5-325] Previous Rx's Medication Instructions Recorded Albuterol Sulfate [Albuterol HFA 2 puffs IH Q6HP PRN #1 inh 10/13/18 Inhaler] Allergies Allergy/AdvReac Type Severity Reaction Status Date / Time latex Allergy Verified 07/17/18 10:23 kidney dye Allergy Uncoded 03/18/18 22:52 [facility] History - Hepatitis A Screen Drug use history?: No Attestation statement:: This patient has been screened for Hepatitis A risk factors. I have reviewed the patient's past medical history: Yes Medical History: Reports:: Congestive Heart Failure, Hyperlipidemia, Hypertension, Kidney Stones, Myocardial Infarction, Renal Disease Denies:: Cancer, Diabetes Mellitus Type 1, Diabetes Mellitus Type 2, Home Oxygen, Internal Pacemaker, MRSA Other Medical History: Reports: Chemotherapy, Radiation Therapy Laterality Cases: Right: Total Hip Replacement Other Surgeries: Yes: CABG, Coronary Stent, Hernia Repair, Open Heart Surgery, Ureter Stent, Other (open heart surgery, kidney stones removed). No: Pacemaker Amputation: No Fractures: No - Social History Smoking Status: Former smoker Tobacco Type: cigarettes # Packs/Day (cigarettes): 1 #Yrs smoked (if former smoker): 32 Alcohol Intake: never Alcohol Intake Frequency:: other Substance Use Type: denies use Occupational Status: retired Housing: house Household Members: spouse Family Hx:: No significant family history ROS Obtained: Yes All systems reviewed & no additional complaints - Constitutional Constitutional: Reports system reviewed and no additional complaints, except as docu, Denies fever(s) - Eyes Eyes: Reports system reviewed and no additional complaints, except as docu - ENT Ears, Nose, Mouth, and Throat: Reports system reviewed and no additional complaints, except as docu - Cardiovascular Cardiovascular: Reports system reviewed and no additional complaints, except as docu, Reports as per HPI, Denies chest pain, Reports dyspnea, Reports dyspnea on exertion, Denies edema, Denies leg edema, Denies pedal edema, Denies radiating jaw, neck or arm pain - Respiratory Respiratory: Yes system reviewed and no additional complaints, except as docu, Yes as per HPI, Yes dyspnea, Yes dyspnea on exertion, No stridor, No wheezing - Gastrointestinal Gastrointestingal: Reports: system reviewed and no additional complaints, except as docu, as per HPI, abdominal pain (Sharp at LLQ earlier this morning ) - Genitourinary Male Genitourinary: Reports system reviewed and no additional complaints, except as docu, Reports as per HPI, Reports other (History of bilateral renal stents) - Musculoskeletal Musculoskeletal: Reports system reviewed and no additional complaints, except as docu, Reports as per HPI, Denies joint swelling, Reports limited range of motion (right shoulder), Denies muscle weakness, Denies numbness, Denies radiating pain into limb, Reports other (right shoulder pain and decreased ROM) - Integumentary/Breasts Skin/Breast: Reports system reviewed and no additional complaints, except as docu - Neurologic Neurologic: Reports system reviewed and no additional complaints, except as docu - Endocrine Endocrine: Reports system reviewed and no additional complaints, except as docu - Hematologic/Lymphatic Henatologic/Lymphatic: Reports system reviewed and no additional complaints, except as docu - Allergic/Immunologic Allergic/Immunologic: Reports system reviewed and no additional complaints, except as docu Physical Exam - General General appearance: alert, in no apparent distress - Head Head exam: atraumatic, normocephalic, normal inspection - Eye Eye exam: Present: PERRL, EOMI - ENT ENT exam: Present: mucous membranes moist, other (No otic or nasal discharge) - Neck Neck exam: Present: trachea midline - Chest Chest inspection: Present: normal inspection, symmetric chest wall rise. Absent: tenderness - Respiratory Respiratory exam: Present: other (She has equally diminished breath sounds bilaterally. No rales rhonchi or wheezing noted. Patient is speaking in full and complete sentences without difficulty). Absent: wheezes, stridor - Cardiovascular Cardiovascular exam: Present: tachycardia, normal heart sounds. Absent: rubs, gallop, clicks - Abdominal Exam Abdominal exam: Present: soft, normal bowel sounds. Absent: tenderness, guarding, rebound, rigidity, Villagran's sign, tenderness at McBurney's Point - Extremities Exam Extremities exam: Present: other (Right shoulder: Patient has decreased range of motion at the right shoulder due to pain. Patient has generalized discomfort on palpation of the right shoulder humeral head area. No crepitus noted on palpation of the right shoulder. Bilateral clavicles appear normal.). Absent: pedal edema - Neurological Exam Neurological exam: Present: alert, oriented X3, CN II-XII intact - Psychiatric Psychiatric exam: Present: normal affect, normal mood - Skin Skin exam: Present: warm, dry, intact, other (Vertical midline chest wall cicatrix)
[2019-12-12 12:22] LABS: Basophils # 0.1 K/mm3 (0-0.2); Basophils % 0.3 % (0.1-2.0); Eosinophils # 0.2 K/mm3 (0.0-0.4); Eosinophils % 1.1 % (0.1-12.0); Hematocrit 42.4 % (42.0-52.0); Hemoglobin 12.9 g/dL (14.1-18.0); Lymphocytes # 2.1 K/mm3 (0.7-4.5); Lymphocytes % 12.8 % (10-50); Mean Corpuscular HGB Conc 30.5 g/dL (31.8-35.4); Mean Corpuscular Volume 108.4 fl (80-94); Mean Platelet Volume 8.5 fl (7.4-10.4); Monocytes # 1.9 K/mm3 (0.1-1.0); Monocytes % 11.3 % (1.7-9.3); Neutrophils # 12.2 K/mm3 (1.8-7.8); Neutrophils % 74.5 % (37.0-80.0); Platelet Count 159 K/mm3 (142-424); Red Blood Count 3.91 M/mm3 (4.60-6.20); Red Cell Distribution Width 14.5 % (11.5-17.5); White Blood Count 16.4 K/mm3 (4.8-10.8)
[2019-12-12 12:32] LABS: Alanine Aminotransferase 19 U/L (12-78); Albumin Level 3.2 gm/dL (3.4-5.0); Albumin/Globulin Ratio 0.9 (1.1-1.8); Alkaline Phosphatase 103 U/L (46-116); Anion Gap 13.8 mEq/L (5-15); Aspartate Amino Transferase 24 U/L (15-37); Bilirubin,Total 0.6 mg/dL (0.2-1.0); Blood Urea Nitrogen 26 mg/dL (7-18); Calcium 8.6 mg/dL (8.5-10.1); Carbon Dioxide 26 mmol/L (21.0-32.0); Chloride 106 mmol/L (98-107); Globulin 3.4 gm/dl (1.3-3.2); Glucose 146 mg/dL (74-106); Sodium 141 mmol/L (136-145); Total Protein,Serum 6.6 gm/dL (6.4-8.2)
[2019-12-12 12:34] LABS: Anisocytosis 2+; Lymphocytes % 25 % (10-50); Macrocytosis 2+; Monocytes % 16 % (2-9); Neutrophils % 59 % (42-76); Total Cells Counted 100
--- NOTE | 2019-12-12 15:41 | Pharmacy Consult Notes ---
- Pharmacy Consult Date: 12/12/19 Time: 15:39 Referring provider: DR. CLEVELAND Reason for Consult:: VANCOMYCIN DOSING Allergies and ADEs:: Allergies Allergy/AdvReac Type Severity Reaction Status Date / Time latex Allergy Verified 07/17/18 10:23 kidney dye Allergy Uncoded 03/18/18 22:52 Home Medications:: Home Medications Medication Instructions Recorded Confirmed Type atorvastatin 40 mg tablet 40 mg PO HS 90 Days #90 01/18/18 12/12/19 History carvedilol 12.5 mg tablet 12.5 mg PO BID 90 Days #180 01/18/18 12/12/19 History furosemide 20 mg tablet 20 mg PO Q48H 01/18/18 12/12/19 History gabapentin 300 mg capsule 300 mg PO BID 30 Days #90 01/18/18 12/12/19 History Aspirin [Aspirin 81mg chewable 81 mg PO DAILY 01/26/18 12/12/19 History tab] Iron,Carb/Vit C/Vit B12/Folic 1 each PO BID 05/13/18 12/12/19 History [Iron 100 Plus Tablet] Albuterol Sulfate [Albuterol HFA 2 puffs IH Q6HP PRN #1 inh 10/13/18 12/12/19 Rx Inhaler] Hydrocodone/Acetaminophen 1 tab PO NEEDED PRN 10/13/18 12/12/19 History [Hydrocodone-Acetamin 7.5-325] Height: 1.73 m Weight: 84.425 kg Laboratory Results:: Laboratory Results - last 24 hr 12/12/19 12:00: WBC 16.4 H, RBC 3.91 L, Hgb 12.9 L, Hct 42.4, MCV 108.4 H, MCH 33.1 H, MCHC 30.5 L, RDW 14.5, Plt Count 159, MPV 8.5, Neut % (Auto) 74.5, Lymph % (Auto) 12.8, [place] % (Auto) 11.3 H, Eos % (Auto) 1.1, Baso % (Auto) 0.3, Neut # (Auto) 12.2 H, Lymph # (Auto) 2.1, [place] # (Auto) 1.9 H, Eos # (Auto) 0.2, Baso # (Auto) 0.1, Total Counted 100, Neutrophils % (Manual) 59, Lymphocytes % (Manual) 25, Monocytes % (Manual) 16 H, Platelet Estimate Normal, Poikilocytosis 1+, Anisocytosis 2+, Macrocytosis 2+, Acanthocytes (Spur) 1+ 12/12/19 12:00: Sodium 141, Potassium 4.8, Chloride 106, Carbon Dioxide 26, Anion Gap 13.8, BUN 26 H, Creatinine 2.80 H, Estimated Creat Clear 27, Estimated GFR 22 L, Est GFR ( Amer) 27 L, Glucose 146 H, Calcium 8.6, Total Biliru bin 0.6, AST 24, ALT 19, Alkaline Phosphatase 103, Troponin I < 0.02, Total Protein 6.6, Albumin 3.2 L, Globulin 3.4 H, Albumin/Globulin Ratio 0.9 L 12/12/19 12:00: Lactate 2.1 H 12/12/19 13:42: Influenza Type A Ag Negative, Influenza Type B Ag Negative Medical History: Reports:: Congestive Heart Failure, Hyperlipidemia, Hypertension, Kidney Stones, Myocardial Infarction, Renal Disease Denies:: Cancer, Diabetes Mellitus Type 1, Diabetes Mellitus Type 2, Home Oxygen, Internal Pacemaker, MRSA Assessment and Plan - Assessment and plan all Dx Assessment and Plan for all problems:: BASED ON PATIENT FACTORS, RECOMMEND VANCOMYCIN 1500 MG IV ONCE, FOLLOWED BY VANCOMYCIN 1250 MG IV Q36H. PHARMACY WILL FOLLOW DAILY AND ADJUST APPROPRIATE.
--- NOTE | 2019-12-12 15:48 | History & Physical Report ---
*Admission Date: 12/12/19 <Lauryn Kumar - 12/12/19 15:59> *Chief complaint: SOA <Lauryn Kumar - 12/12/19 15:59> *History of present illness: Mr. Graff is a 79yo male who presented to the urgent treatment center complaining of right shoulder pain since yesterday. Patient states that he was carrying a flag pole and it had bumped the ceiling in his garage a couple times jerking on his shoulder. Patient has had pain since that time and had been unable to move his arm. He was trying to get into the urgent treatment center when he became slightly short of breath and fell into the wall. He was then placed in a wheelchair and was taken to the emergency room. He states he has had some episodes of increased shortness of breath and dyspnea on exertion. Pt was recently treated a couple weeks ago with Doxycycline PO for respiratory infection by his PCP. He states he gets short of breath occasionally when it is time to "clean his kidney stents" and he is scheduled for this on the of this month. He has a history of congestive heart failure but denies chest pain. He also had an episode of sharp left lower quadrant abdominal pain that lasted for a short while this am and then completely resolved. No vomiting no diarrhea no constipation. No fever. He does have a history of bilateral renal stents. The patient was evaluated in the emergency room and was given Toradol 30 mg IV push and Zofran 4 mg IV push for his pain. He had a chest x-ray showing a left lower lobe pneumonia. He was given a DuoNeb treatment and was started on zosyn and vancomycin. He was tachycardic in the ER and had a couple episodes of hypotension. His lactic acid was mildly elevated. He met sepsis criteria, so he was continued on antibiotics and given a 30 mL/kg IV fluid bolus. 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 was cancer-free in 2013) <Alex Patiño - 12/12/19 18:10> Reports:: Congestive Heart Failure, Hyperlipidemia, Hypertension, Kidney Stones, Myocardial Infarction, Renal Disease Denies:: Cancer, Diabetes Mellitus Type 1, Diabetes Mellitus Type 2, Home Oxygen, Internal Pacemaker, MRSA <Lauryn Kumar 12/12/19 15:59> *Have you ever received a pneumonia vaccine?: No <Lauryn Kumar 12/12/19 15:59> *Have you received a flu vaccine this season?: No <Lauryn Kumar 12/12/19 15:59> Other Medical History: Reports: Chemotherapy, Radiation Therapy <Lauryn Kumar 12/12/19 15:59> Laterality Cases: Right: Total Hip Replacement <Lauryn Kumar 12/12/19 15:59> Other Surgeries: Yes: Open Heart Surgery, Ureter Stent (bilateral), Other <Alex Patiño 12/12/19 18:17> Yes: CABG, Cardiac Catheterization, Coronary Stent, Hernia Repair, Open Heart Surgery, Ureter Stent, Other (open heart surgery, kidney stones removed). No: Pacemaker <Lauryn Kumar 12/12/19 17:36> Amputation: No <Lauryn Kumar 12/12/19 15:59> Fractures: No <Lauryn Kumar 12/12/19 15:59> - *Social History Educational Level: Attended Trade [employer] <Lauryn Kumar 12/12/19 15:59> Smoking Status: Former smoker <Lauryn Kumar 12/12/19 15:59> Tobacco Type: cigarettes <Lauryn Kumar 12/12/19 15:59> # Packs/Day (cigarettes): 1 <Lauryn Kumar 12/12/19 15:59> #Yrs smoked (if former smoker): 32 <Lauryn Kumar 12/12/19 15:59> Smoking End Date: stoppped in 1990 <Lauryn Kumar 12/12/19 15:59> Alcohol Intake: never <Lauryn Kumar 12/12/19 15:59> Alcohol Intake Frequency:: other <Lauryn Kumar 12/12/19 15:59> Substance Use Type: denies use <Lauryn Kumar 12/12/19 15:59> *Occupational Status:: retired <Lauryn Kumar - 01/23/20 15:59> Housing: house <Lauryn Kumar 12/12/19 15:59> Household Members: spouse <Lauryn Kumar 12/12/19 15:59> *Travel in the last 8 weeks: None <Lauryn Kumar 12/12/19 15:59> Family Hx:: No significant family history <Lauryn Kumar 12/12/19 15:59> Review of Systems - Constitutional Denies chills, Denies fever(s) <Lauryn Kumar 12/12/19 17:36> - Eyes Denies blurry vision, Denies double vision <Lauryn Kumar 12/12/19 17:36> - ENT Denies nasal congestion, Denies sore throat <Lauryn Kumar 12/12/19 17:36> - *Cardiovascular Reports shortness of breath, Denies chest pain <Lauryn Kumar 12/12/19 17:36> - *Respiratory Reports cough, Reports shortness of breath, Denies wheezing <Lauryn Kumar 12/12/19 17:36> - *Gastrointestinal Reports abdominal pain (this am, none now), Denies loose stools, Denies nausea, Denies vomiting <Lauryn Kumar 12/12/19 17:36> - *Genitourinary Denies difficulty urinating, Denies painful urination <Lauryn Kumar 12/12/19 17:36> - *Musculoskeletal Reports joint pain (right shoulder (acute); right hip (chronic)) <Alex Patiño 12/12/19 18:17> Reports joint pain (right shoulder) <Lauryn Kumar 12/12/19 17:36> - *Neurologic Reports weakness, Denies headache(s), Denies numbness, Denies dizziness <Lauryn Kumar 12/12/19 17:36> Meds Home Medications Medication Instructions Recorded Confirmed Type atorvastatin 40 mg tablet 40 mg PO HS 90 Days #90 01/18/18 12/12/19 History furosemide 20 mg tablet 20 mg PO Q48H 01/18/18 12/12/19 History gabapentin 300 mg capsule 300 mg PO BID 30 Days #90 01/18/18 12/12/19 History Aspirin [Aspirin 81mg chewable 81 mg PO DAILY 01/26/18 12/12/19 History tab] Iron,Carb/Vit C/Vit B12/Folic 1 each PO BID 05/13/18 12/12/19 History [Iron 100 Plus Tablet] Albuterol Sulfate [Albuterol HFA 2 puffs IH Q6HP PRN #1 inh 10/13/18 12/12/19 Rx Inhaler] Hydrocodone/Acetaminophen 1 tab PO Q6HP PRN 10/13/18 12/12/19 History [Hydrocodone-Acetamin 7.5-325] carvediloL [Carvedilol 3.125mg Tab] 3.125 mg PO BID 12/12/19 12/12/19 History <Alex Patiño - 12/12/19 18:17> Allergies Allergy/AdvReac Type Severity Reaction Status Date / Time latex Allergy Verified 07/17/18 10:23 kidney dye Allergy Uncoded 03/18/18 22:52 <Alex Patiño - 12/12/19 18:17> Exam Vital signs and Labs for Last 24 Hours: Temp Pulse Resp BP Pulse Ox 98 F 100 H 20 96/60 L 91 L 12/12/19 15:06 12/12/19 16:20 12/12/19 15:06 12/12/19 16:51 12/12/19 15:10 Laboratory Results - last 24 hr 12/12/19 12:00: WBC 16.4 H, RBC 3.91 L, Hgb 12.9 L, Hct 42.4, MCV 108.4 H, MCH 33.1 H, MCHC 30.5 L, RDW 14.5, Plt Count 159, MPV 8.5, Neut % (Auto) 74.5, Lymph % (Auto) 12.8, [place] % (Auto) 11.3 H, Eos % (Auto) 1.1, Baso % (Auto) 0.3, Neut # (Auto) 12.2 H, Lymph # (Auto) 2.1, [place] # (Auto) 1.9 H, Eos # (Auto) 0.2, Baso # (Auto) 0.1, Total Counted 100, Neutrophils % (Manual) 59, Lymphocytes % (Manual) 25, Monocytes % (Manual) 16 H, Platelet Estimate Normal, Poikilocytosis 1+, Anisocytosis 2+, Macrocytosis 2+, Acanthocytes (Spur) 1+ 12/12/19 12:00: Sodium 141, Potassium 4.8, Chloride 106, Carbon Dioxide 26, Anion Gap 13.8, BUN 26 H, Creatinine 2.80 H, Estimated Creat Clear 27, Estimated GFR 22 L, Est GFR ( Amer) 27 L, Glucose 146 H, Calcium 8.6, Total Bilirubin 0.6, AST 24, ALT 19, Alkaline Phosphatase 103, Troponin I < 0.02, Total Protein 6.6, Albumin 3.2 L, Globulin 3.4 H, Albumin/Globulin Ratio 0.9 L 12/12/19 12:00: Lactate 2.1 H 12/12/19 13:42: Influenza Type A Ag Negative, Influenza Type B Ag Negative 12/12/19 15:28: Troponin I < 0.02 12/12/19 16:30: Lactate 0.7 <Alex Patiño - 12/12/19 18:17> Temp Pulse Resp BP Pulse Ox 98 F 106 H 20 84/55 L 91 L 12/12/19 15:06 12/12/19 15:10 12/12/19 15:06 12/12/19 15:06 12/12/19 15:10 Laboratory Results - last 24 hr 12/12/19 12:00: WBC 16.4 H, RBC 3.91 L, Hgb 12.9 L, Hct 42.4, MCV 108.4 H, MCH 33.1 H, MCHC 30.5 L, RDW 14.5, Plt Count 159, MPV 8.5, Neut % (Auto) 74.5, Lymph % (Auto) 12.8, [place] % (Auto) 11.3 H, Eos % (Auto) 1.1, Baso % (Auto) 0.3, Neut # (Auto) 12.2 H, Lymph # (Auto) 2.1, [place] # (Auto) 1.9 H, Eos # (Auto) 0.2, Baso # (Auto) 0.1, Total Counted 100, Neutrophils % (Manual) 59, Lymphocytes % (Manual) 25, Monocytes % (Manual) 16 H, Platelet Estimate Normal, Poikilocytosis 1+, Anisocytosis 2+, Macrocytosis 2+, Acanthocytes (Spur) 1+ 12/12/19 12:00: Sodium 141, Potassium 4.8, Chloride 106, Carbon Dioxide 26, Anion Gap 13.8, BUN 26 H, Creatinine 2.80 H, Estimated Creat Clear 27, Estimated GFR 22 L, Est GFR ( Amer) 27 L, Glucose 146 H, Calcium 8.6, Total Bilirubin 0.6, AST 24, ALT 19, Alkaline Phosphatase 103, Troponin I < 0.02, Total Protein 6.6, Albumin 3.2 L, Globulin 3.4 H, Albumin/Globulin Ratio 0.9 L 12/12/19 12:00: Lactate 2.1 H 12/12/19 13:42: Influenza Type A Ag Negative, Influenza Type B Ag Negative <Lauryn Kumar 12/12/19 15:59> I & O for Last 24 hours: Intake & Output 12/10/19 12/11/19 12/12/19 12/13/19 11:59 11:59 11:59 11:59 Intake Total 240 / 240 Balance 240 / 240 Weight 186 lb 2 oz <KaylynAlex Francisco J 12/12/19 18:17> Intake & Output 12/10/19 12/11/19 12/12/19 12/13/19 11:59 11:59 11:59 11:59 Weight 186 lb 2 oz <Lauryn Kumar 12/12/19 15:59> - Constitutional no acute distress <Lauryn Kumar 12/12/19 17:36> - *Routine HEENT Exam Head: Present: normocephalic <Lauryn Kumar 12/12/19 17:36> Eye: Present: EOMI, PERRL <Lauryn Kumar 12/12/19 17:36> ENT: Present: mucous membranes moist <Lauryn Kumar 12/12/19 17:36> - *Routine Neck Exam Present: supple, full ROM. Absent: lymphadenopathy <Lauryn Kumar 12/12/19 17:36> - *Routine Respiratory Exam Present: rales (faint in the left base). Absent: wheezes <Lauryn Kumar 12/12/19 17:36> - *Routine Cardiovascular Exam Present: RRR <Lauryn Kumar 12/12/19 17:36> - *Routine Abdominal Exam Present: soft, normoactive bowel sounds. Absent: tenderness <Lauryn Kumar 12/12/19 17:36> - *Routine Extremities Exam Absent: cyanosis, clubbing, edema <Lauryn Kumar 12/12/19 17:36> - *Routine Skin Exam Present: warm. Absent: rash <Lauryn Kumar 12/12/19 17:36> - *Routine Neurological Exam Present: alert, oriented X3 <Lauryn Kumar 12/12/19 17:36> - Detailed Upper Extremity Exam Shoulder/Upper Arm: Right normal inspection, Right tenderness (over AC joint and bicipital tendon), Right decreased ROM <Lauryn Kumar 12/12/19 17:36> H&P: Result - Impressions Cervical Spine CT Multilevel degenerative disc and facet disease as described with central canal and foraminal stenoses. CXR - Small amount of left basilar atelectasis or pneumonia. Right Shoulder x-ray - Degenerative findings as described. No acute findings. Abdominal CT Placement of double pigtail urinary stents with no evidence of stent dysfunction or mechanical obstruction of the kidneys. Nonobstructing nephrolithiasis. Small amount of nonspecific free fluid in the pelvis with some fluid in the left inguinal canal. Interval appearance of destruction of bony cortex of the right greater trochanter with overlying fluid collection. A septic inflammatory process is not excluded. New additional compression deformity of L2 <Lauryn Kumar 12/12/19 17:36> Assessment and Plan (1) LLL pneumonia Current visit: Yes Status: Acute Qualifiers: Pneumonia type: due to unspecified organism Qualified Code(s): J18.9 - Pneumonia, unspecified organism Category: Medical Code(s): J18.9 - Pneumonia, unspecified organism (2) Sepsis Current visit: Yes Status: Acute Qualifiers: Sepsis type: sepsis due to unspecified organism Sepsis acute organ dysfu nction status: unspecified Qualified Code(s): A41.9 - Sepsis, unspecified organism Category: Medical Code(s): A41.9 - Sepsis, unspecified organism (3) Right shoulder pain Current visit: Yes Status: Acute Qualifiers: Chronicity: acute Qualified Code(s): M25.511 - Pain in right shoulder Category: Medical Code(s): M25.511 - Pain in right shoulder (4) Chronic kidney disease Current visit: Yes Status: Chronic Qualifiers: Chronic kidney disease stage: unspecified stage Qualified Code(s): N18.9 - Chronic kidney disease, unspecified Category: Medical Code(s): N18.9 - Chronic kidney disease, unspecified (5) DDD (degenerative disc disease), cervical Current visit: Yes Status: Chronic Category: Medical Code(s): M50.30 - Other cervical disc degeneration, unspecified cervical region (6) Dyspnea Current visit: Yes Status: Chronic Qualifiers: Dyspnea type: unspecified Qualified Code(s): R06.00 - Dyspnea, unspecified Category: Medical Code(s): R06.00 - Dyspnea, unspecified (7) CAD (coronary artery disease) Current visit: No Status: Chronic Category: Medical Code(s): I25.10 - Atherosclerotic heart disease of [place] coronary artery without angina pectoris (8) CHF (congestive heart failure) Current visit: No Status: Chronic Category: Medical Code(s): I50.9 - Heart failure, unspecified (9) COPD (chronic obstructive pulmonary disease) Current visit: No Status: Chronic Category: Medical Code(s): J44.9 - Chronic obstructive pulmonary disease, unspecified (10) Chronic renal insufficiency, stage V Current visit: No Status: Chronic Category: Medical Code(s): N18.5 - Chronic kidney disease, stage 5 (11) HTN (hypertension) Current visit: No Status: Chronic Category: Medical Code(s): I10 - Essential (primary) hypertension (12) Hx of lymphoma Current visit: Yes Status: Acute Category: Medical Code(s): Z85.72 - Personal history of non-Hodgkin lymphomas <Alex Patiño - 12/12/19 18:17> (1) Right shoulder pain Current visit: Yes Status: Acute Qualifiers: Chronicity: acute Qualified Code(s): M25.511 - Pain in right shoulder Category: Medical Code(s): M25.511 - Pain in right shoulder (2) LLL pneumonia Current visit: Yes Status: Acute Qualifiers: Pneumonia type: due to unspecified organism Qualified Code(s): J18.9 - Pneumonia, unspecified organism Category: Medical Code(s): J18.9 - Pneumonia, unspecified organism (3) Sepsis Current visit: Yes Status: Acute Qualifiers: Sepsis type: sepsis due to unspecified organism Sepsis acute organ dysfunction status: unspecified Qualified Code(s): A41.9 - Sepsis, unspecified organism Category: Medical Code(s): A41.9 - Sepsis, unspecified organism (4) Leukocytosis Current visit: Yes Status: Acute Qualifiers: Leukocytosis type: unspecified Qualified Code(s): D72.829 - Elevated white blood cell count, unspecified Category: Medical Code(s): D72.829 - Elevated white blood cell count, unspecified (5) Chronic kidney disease Current visit: Yes Status: Chronic Qualifiers: Chronic kidney disease stage: unspecified stage Qualified Code(s): N18.9 - Chronic kidney disease, unspecified Category: Medical Code(s): N18.9 - Chronic kidney disease, unspecified (6) DDD (degenerative disc disease), cervical Current visit: Yes Status: Chronic Category: Medical Code(s): M50.30 - Other cervical disc degeneration, unspecified cervical region (7) Dyspnea Current visit: Yes Status: Chronic Qualifiers: Dyspnea type: unspecified Qualified Code(s): R06.00 - Dyspnea, unspecified Category: Medical Code(s): R06.00 - Dyspnea, unspecified (8) Sinus tachycardia Current visit: Yes Status: Acute Category: Medical Code(s): R00.0 - Tachycardia, unspecified (9) CAD (coronary artery disease) Current visit: No Status: Chronic Category: Medical Code(s): I25.10 - Atherosclerotic heart disease of [place] coronary artery without angina pectoris (10) CHF (congestive heart failure) Current visit: No Status: Chronic Category: Medical Code(s): I50.9 - Heart failure, unspecified (11) COPD (chronic obstructive pulmonary disease) Current visit: No Status: Chronic Category: Medical Code(s): J44.9 - Chronic obstructive pulmonary disease, unspecified (12) Chronic renal insufficiency, stage V Current visit: No Status: Chronic Category: Medical Code(s): N18.5 - Chronic kidney disease, stage 5 (13) HTN (hypertension) Current visit: No Status: Chronic Category: Medical Code(s): I10 - Essential (primary) hypertension <Lauryn Kumar - 12/12/19 17:27> - Assessment and plan all Dx Assessment and Plan for all problems:: Patient seen and examined. He is a very alert and oriented and gives a detailed history of events since yesterday. His chief complaint is his right shoulder pain. He triggered for sepsis criteria and has had his fluid bolus. Following this his blood pressure is improved with systolic readings in the 90s and low 100s. Continue per orders. Will obtain PT consult for shoulder pain tomorrow. <Alex Patiño - 12/12/19 18:17> Patient was given an IV fluid bolus and started on dual antibiotics. He was also given pain medication and duo nebs. Will discuss further care with Dr. Patiño. <Lauryn Kumar - 12/12/19 17:36>
--- NOTE | 2019-12-12 15:53 | Pharmacy Consult Notes ---
[facility] Pharmacy VTE Monitoring - Patient Demographics Admission date: 12/12/19 Report Date: 12/12/19 Time: 15:53 Allergies/Adverse Reactions: Patient Allergies latex Allergy (Verified 07/17/18 10:23) kidney dye Allergy (Uncoded 03/18/18 22:52) Height: 1.73 m Weight: 84.425 kg Patient Problems: Current Active Problems Dyspnea (Acute) LLL pneumonia (Acute) Right shoulder pain (Acute) Chronic kidney disease (Acute) Sepsis (Acute) Strain of right shoulder (Acute) Sinus tachycardia (Acute) Leukocytosis (Acute) DJD (degenerative joint disease), cervical (Acute) DDD (degenerative disc disease), cervical (Acute) - VTE Risk Labs: VTE Related Lab Results Hgb 12.9 g/dL (14.1-18.0) L 12/12/19 12:00 Hct 42.4 % (42.0-52.0) 12/12/19 12:00 Plt Count 159 K/mm3 (142-424) 12/12/19 12:00 BUN 26 mg/dL (7-18) H 12/12/19 12:00 Creatinine 2.80 mg/dL (0.70-1.30) H 12/12/19 12:00 Estimated Creat Clear 27 mL/min (50-200) 12/12/19 12:00 Was VTE Risk Assessment Performed: Yes VTE Score: 7 VTE Risk Level: Moderate Risk Clinical Trial Participant: No - Prophylaxis VTE Prophylaxis Ordered?: Yes Types of VTE Prophylaxis: TEDS Knee High
[2019-12-13 08:04] LABS: Anion Gap 13.3 mEq/L (5-15)
[2019-12-13 08:06] LABS: Eosinophils # 0.1 K/mm3 (0.0-0.4)
--- NOTE | 2019-12-13 08:09 | Progress Note ---
<Lauryn Kumar - Last Filed: 12/13/19 08:07> Internal Medicine - PN: Subj *Date: 12/13/19 *Time: 08:07 Interval history: Patient states he feels a little bit better today. He can move his right arm a little bit better today but it is still very painful. He is coughed a few times throughout the night and was able to get a small sputum specimen. He denies any shortness of breath this morning. He states he slept about 4 to 5 hours last night and ate some of his breakfast. Exam Vital signs and Labs for Last 24 Hours: Temp Pulse Resp BP Pulse Ox 98.5 F 80 18 124/67 91 L 12/13/19 07:52 12/13/19 07:52 12/13/19 07:52 12/13/19 07:52 12/13/19 07:52 Laboratory Results - last 24 hr 12/12/19 12:00: WBC 16.4 H, RBC 3.91 L, Hgb 12.9 L, Hct 42.4, MCV 108.4 H, MCH 33.1 H, MCHC 30.5 L, RDW 14.5, Plt Count 159, MPV 8.5, Neut % (Auto) 74.5, Lymph % (Auto) 12.8, [place] % (Auto) 11.3 H, Eos % (Auto) 1.1, Baso % (Auto) 0.3, Neut # (Auto) 12.2 H, Lymph # (Auto) 2.1, [place] # (Auto) 1.9 H, Eos # (Auto) 0.2, Baso # (Auto) 0.1, Total Counted 100, Neutrophils % (Manual) 59, Lymphocytes % (Manual) 25, Monocytes % (Manual) 16 H, Platelet Estimate Normal, Poikilocytosis 1+, Anisocytosis 2+, Macrocytosis 2+, Acanthocytes (Spur) 1+ 12/12/19 12:00: Sodium 141, Potassium 4.8, Chloride 106, Carbon Dioxide 26, Anion Gap 13.8, BUN 26 H, Creatinine 2.80 H, Estimated Creat Clear 27, Estimated GFR 22 L, Est GFR ( Amer) 27 L, Glucose 146 H, Calcium 8.6, Total Bilirubin 0.6, AST 24, ALT 19, Alkaline Phosphatase 103, Troponin I < 0.02, Total Protein 6.6, Albumin 3.2 L, Globulin 3.4 H, Albumin/Globulin Ratio 0.9 L 12/12/19 12:00: Lactate 2.1 H 12/12/19 13:42: Influenza Type A Ag Negative, Influenza Type B Ag Negative 12/12/19 15:28: Troponin I < 0.02 12/12/19 16:30: Lactate 0.7 12/12/19 18:33: Troponin I < 0.02 I & O for Last 24 hours: Intake & Output 12/10/19 12/11/19 12/12/19 12/13/19 11:59 11:59 11:59 11:59 Intake Total 240 / 240 Output Total 200 / 200 Balance 40 / 40 Weight 194 lb 7 oz Microbiology Reports for the Last 24 Hours: Microbiology 12/13/19 06:15 Sputum - Expectorated Sputum Gram Stain - Final 12/13/19 06:15 Sputum - Expectorated Sputum Sputum Culture - Final - Constitutional no acute distress - *Routine Respiratory Exam Present: rales (bibasilar) - *Routine Cardiovascular Exam Present: RRR - *Routine Abdominal Exam Present: soft, normoactive bowel sounds. Absent: tenderness - *Routine Extremities Exam Absent: cyanosis, clubbing, edema - *Routine Skin Exam Present: warm. Absent: rash - *Routine Neurological Exam Present: alert, oriented X3 Assessment and Plan (1) LLL pneumonia Current visit: Yes Status: Acute Qualifiers: Pneumonia type: due to unspecified organism Qualified Code(s): J18.9 - Pneumonia, unspecified organism Category: Medical Code(s): J18.9 - Pneumonia, unspecified organism (2) Sepsis Current visit: Yes Status: Acute Qualifiers: Sepsis type: sepsis due to unspecified organism Sepsis acute organ dysfunction status: unspecified Qualified Code(s): A41.9 - Sepsis, unspecified organism Category: Medical Code(s): A41.9 - Sepsis, unspecified organism (3) Right shoulder pain Current visit: Yes Status: Acute Qualifiers: Chronicity: acute Qualified Code(s): M25.511 - Pain in right shoulder Category: Medical Code(s): M25.511 - Pain in right shoulder (4) Chronic kidney disease Current visit: Yes Status: Chronic Qualifiers: Chronic kidney disease stage: unspecified stage Qualified Code(s): N18.9 - Chronic kidney disease, unspecified Category: Medical Code(s): N18.9 - Chronic kidney disease, unspecified (5) DDD (degenerative disc disease), cervical Current visit: Yes Status: Chronic Category: Medical Code(s): M50.30 - Other cervical disc degeneration, unspecified cervical region (6) Dyspnea Current visit: Yes Status: Chronic Qualifiers: Dyspnea type: unspecified Qualified Code(s): R06.00 - Dyspnea, unspecified Category: Medical Code(s): R06.00 - Dyspnea, unspecified (7) CAD (coronary artery disease) Current visit: No Status: Chronic Category: Medical Code(s): I25.10 - Atherosclerotic heart disease of [place] coronary artery without angina pectoris (8) CHF (congestive heart failure) Current visit: No Status: Chronic Category: Medical Code(s): I50.9 - Heart failure, unspecified (9) COPD (chronic obstructive pulmonary disease) Current visit: No Status: Chronic Category: Medical Code(s): J44.9 - Chronic obstructive pulmonary disease, unspecified (10) Chronic renal insufficiency, stage V Current visit: No Status: Chronic Category: Medical Code(s): N18.5 - Chronic kidney disease, stage 5 (11) HTN (hypertension) Current visit: No Status: Chronic Category: Medical Code(s): I10 - Essential (primary) hypertension (12) Hx of lymphoma Current visit: Yes Status: Acute Category: Medical Code(s): Z85.72 - Personal history of non-Hodgkin lymphomas - Assessment and plan all Dx Assessment and Plan for all problems:: We will repeat a chest x-ray and get some labs this morning. Possible discharge home soon. <Alex Patiño - Last Filed: 12/13/19 17:23> Internal Medicine - PN: Subj *Date: 12/13/19 *Time: 17:23 Exam Vital signs and Labs for Last 24 Hours: Temp Pulse Resp BP Pulse Ox 98.4 F 93 H 18 124/76 96 12/13/19 16:00 12/13/19 16:00 12/13/19 16:00 12/13/19 16:00 12/13/19 16:00 Laboratory Results - last 24 hr 12/12/19 18:33: Troponin I < 0.02 12/13/19 07:02: WBC 9.1 D, RBC 3.21 L, Hgb 10.7 L D, Hct 34.3 L, MCV 106.8 H, MCH 33.3 H, MCHC 31.2 L, RDW 14.4, Plt Count 105 L D, MPV 9.2, Neut % (Auto) 69.2, Lymph % (Auto) 17.3, [place] % (Auto) 12.6 H, Eos % (Auto) 0.7, Baso % (Auto) 0.2, Neut # (Auto) 6.3, Lymph # (Auto) 1.6, [place] # (Auto) 1.2 H, Eos # (Auto) 0.1, Baso # (Auto) 0.0 12/13/19 07:02: Sodium 141, Potassium 4.3, Chloride 110 H, Carbon Dioxide 22, Anion Gap 13.3, BUN 28 H, Creatinine 2.53 H, Estimated Creat Clear 31, Estimated GFR 25 L, Est GFR ( Amer) 30 L, Glucose 106 D, Calcium 7.3 L D I & O for Last 24 hours: Intake & Output 12/11/19 12/12/19 12/13/19 12/14/19 11:59 11:59 11:59 11:59 Intake Total 2030 / 2030 240 / 240 Output Total 200 / 200 Balance 1830 / 1830 240 / 240 Weight 194 lb 7 oz Microbiology Reports for the Last 24 Hours: Microbiology 12/13/19 06:15 Sputum - Expectorated Sputum Gram Stain - Final 12/13/19 06:15 Sputum - Expectorated Sputum Sputum Culture - Final Assessment and Plan (1) LLL pneumonia Current visit: Yes Status: Acute Qualifiers: Pneumonia type: due to unspecified organism Qualified Code(s): J18.9 - Pneumonia, unspecified organism Category: Medical Code(s): J18.9 - Pneumonia, unspecified organism (2) Sepsis Current visit: Yes Status: Acute Qualifiers: Sepsis type: sepsis due to unspecified organism Sepsis acute organ dysfunction status: unspecified Qualified Code(s): A41.9 - Sepsis, unspecified organism Category: Medical Code(s): A41.9 - Sepsis, unspecified organism (3) Right shoulder pain Current visit: Yes Status: Acute Qualifiers: Chronicity: acute Qualified Code(s): M25.511 - Pain in right shoulder Category: Medical Code(s): M25.511 - Pain in right shoulder (4) Chronic kidney disease Current visit: Yes Status: Chronic Qualifiers: Chronic kidney disease stage: unspecified stage Qualified Code(s): N18.9 - Chronic kidney disease, unspecified Category: Medical Code(s): N18.9 - Chronic kidney disease, unspecified (5) DDD (degenerative disc disease), cervical Current visit: Yes Status: Chronic Category: Medical Code(s): M50.30 - Other cervical disc degeneration, unspecified cervical region (6) Dyspnea Current visit: Yes Status: Chronic Qualifiers: Dyspnea type: unspecified Qualified Code(s): R06.00 - Dyspnea, unspecified Category: Medical Code(s): R06.00 - Dyspnea, unspecified (7) CAD (coronary artery disease) Current visit: No Status: Chronic Category: Medical Code(s): I25.10 - Atherosclerotic heart disease of [place] coronary artery without angina pectoris (8) CHF (congestive heart failure) Current visit: No Status: Chronic Category: Medical Code(s): I50.9 - Heart failure, unspecified (9) COPD (chronic obstructive pulmonary disease) Current visit: No Status: Chronic Category: Medical Code(s): J44.9 - Chronic obstructive pulmonary disease, unspecified (10) Chronic renal insufficiency, stage V Current visit: No Status: Chronic Category: Medical Code(s): N18.5 - Chronic kidney disease, stage 5 (11) HTN (hypertension) Current visit: No Status: Chronic Category: Medical Code(s): I10 - Essential (primary) hypertension (12) Hx of lymphoma Current visit: Yes Status: Acute Category: Medical Code(s): Z85.72 - Per mike history of non-Hodgkin lymphomas - Assessment and plan all Dx Assessment and Plan for all problems:: Patient seen and examined this morning. He rested fairly well. No complaints of dyspnea or chest pain. Cough is minimal and mostly nonproductive. Hypotension has improved. We will continue current regimen pending cultures.
[2019-12-13 08:13] LABS: Calcium 7.3 mg/dL (8.5-10.1)
[2019-12-13 08:20] LABS: Basophils % 0.2 % (0.1-2.0); Eosinophils % 0.7 % (0.1-12.0); Hematocrit 34.3 % (42.0-52.0); Lymphocytes # 1.6 K/mm3 (0.7-4.5); Lymphocytes % 17.3 % (10-50); Mean Corpuscular HGB Conc 31.2 g/dL (31.8-35.4); Mean Corpuscular Volume 106.8 fl (80-94); Mean Platelet Volume 9.2 fl (7.4-10.4); Monocytes # 1.2 K/mm3 (0.1-1.0); Monocytes % 12.6 % (1.7-9.3); Neutrophils # 6.3 K/mm3 (1.8-7.8); Neutrophils % 69.2 % (37.0-80.0); Platelet Count 105 K/mm3 (142-424); Red Blood Count 3.21 M/mm3 (4.60-6.20); Red Cell Distribution Width 14.4 % (11.5-17.5); White Blood Count 9.1 K/mm3 (4.8-10.8)
[2019-12-13 08:31] LABS: Hemoglobin 10.7 g/dL (14.1-18.0)
--- NOTE | 2019-12-14 09:58 | Progress Note ---
Internal Medicine - PN: Subj *Date: 12/14/19 *Time: 09:55 Interval history: He rested well last night and feels better this morning. He has been up about the room and tolerating activity with no increased shortness of breath. O2 sats of been normal on room air. He denies chest pain. Minimal cough which is nonproductive. Right shoulder pain is better. Exam Vital signs and Labs for Last 24 Hours: Temp Pulse Resp BP Pulse Ox 98.5 F 89 18 148/64 H 95 12/14/19 08:00 12/14/19 08:00 12/14/19 08:00 12/14/19 08:00 12/14/19 08:00 I & O for Last 24 hours: Intake & Output 12/11/19 12/12/19 12/13/19 12/14/19 11:59 11:59 11:59 11:59 Intake Total 2030 / 2030 1525 / 1525 Output Total 200 / 200 Balance 1830 / 1830 1525 / 1525 Weight 194 lb 7 oz 194 lb 1 oz Microbiology Reports for the Last 24 Hours: Microbiology 12/13/19 06:15 Sputum - Expectorated Sputum Gram Stain - Final 12/13/19 06:15 Sputum - Expectorated Sputum Sputum Culture - Final Narrative: Alert and oriented. Color is normal. No respiratory distress. Lungs are clear to auscultation. Heart is regular. Abdomen soft and nondistended with no masses or tenderness. Extremities no edema. Range of motion of right shoulder is improved with abduction just past 90 degrees. Internal and external rotation improved. Assessment and Plan (1) LLL pneumonia Current visit: Yes Status: Acute Qualifiers: Pneumonia type: due to unspecified organism Qualified Code(s): J18.9 - Pneumonia, unspecified organism Category: Medical Code(s): J18.9 - Pneumonia, unspecified organism (2) Sepsis Current visit: Yes Status: Acute Qualifiers: Sepsis type: sepsis due to unspecified organism Sepsis acute organ dysfunction status: unspecified Qualified Code(s): A41.9 - Sepsis, unspecified organism Category: Medical Code(s): A41.9 - Sepsis, unspecified organism (3) Chronic kidney disease Current visit: Yes Status: Chronic Qualifiers: Chronic kidney disease stage: unspecified stage Qualified Code(s): N18.9 - Chronic kidney disease, unspecified Category: Medical Code(s): N18.9 - Chronic kidney disease, unspecified (4) DDD (degenerative disc disease), cervical Current visit: Yes Status: Chronic Category: Medical Code(s): M50.30 - Other cervical disc degeneration, unspecified cervical region (5) Dyspnea Current visit: Yes Status: Chronic Qualifiers: Dyspnea type: unspecified Qualified Code(s): R06.00 - Dyspnea, unspecified Category: Medical Code(s): R06.00 - Dyspnea, unspecified (6) CAD (coronary artery disease) Current visit: No Status: Chronic Category: Medical Code(s): I25.10 - Atherosclerotic heart disease of [place] coronary artery without angina pectoris (7) CHF (congestive heart failure) Current visit: No Status: Chronic Category: Medical Code(s): I50.9 - Heart failure, unspecified (8) COPD (chronic obstructive pulmonary disease) Current visit: No Status: Chronic Category: Medical Code(s): J44.9 - Chronic obstructive pulmonary disease, unspecified (9) Chronic renal insufficiency, stage V Current visit: No Status: Chronic Category: Medical Code(s): N18.5 - Chronic kidney disease, stage 5 (10) HTN (hypertension) Current visit: No Status: Chronic Category: Medical Code(s): I10 - Essential (primary) hypertension (11) Hx of lymphoma Current visit: Yes Status: Acute Category: Medical Code(s): Z85.72 - Personal history of non-Hodgkin lymphomas (12) Sprain of right shoulder Current visit: Yes Status: Acute Category: Medical Code(s): S43.401A - Unspecified sprain of right shoulder joint, initial encounter - Assessment and plan all Dx Assessment and Plan for all problems:: Clinically improved. He is stable for discharge. Will continue on p.o. Levaquin for an additional 1 week. He will follow-up for recheck in my office in 1 week or sooner if he becomes symptomatic.
--- NOTE | 2019-12-14 19:10 | Electrocardiograph Report ---
APPROVED REPORT Exam: Resting ECG HR:119 bpm ECG Measurements Heart Rate 119 AXES QRSd 134 QRS -47 QT 368 T223 QTc 517 <Conclusion> Wide QRS rhythm Left axis deviation Left bundle branch block Abnormal ECG Electronically signed by : Ryan Aviles, 12/14/2019 19:09:55
--- NOTE | 2019-12-16 14:33 | Discharge Summary ---
General - General Admission date:: 12/12/19 Discharge date: 12/14/19 HPI HPI: Mr. Graff is a 79yo male who presented to the urgent treatment center complaining of right shoulder pain for one day. Patient stated that he was carrying a flag pole and it had bumped the ceiling in his garage a couple times jerking on his shoulder. Patient had had pain since that time and had been unable to move his arm. He was trying to get into the urgent treatment center when he became slightly short of breath and fell into the wall. He was then placed in a wheelchair and was taken to the emergency room. He stated he had had some episodes of increased shortness of breath and dyspnea on exertion. Pt was recently treated a couple weeks ago with Doxycycline PO for respiratory infection by his PCP. He stated he got short of breath occasionally when it was time to "clean his kidney stents" and he was scheduled for this on the of this month. He has a history of congestive heart failure but denied chest pain. He also had an episode of sharp left lower quadrant abdominal pain that lasted for a short while and then completely resolved. No vomiting no diarrhea no constipation. No fever. He did have a history of bilateral renal stents. The patient was evaluated in the emergency room and was given Toradol 30 mg IV push and Zofran 4 mg IV push for his pain. He had a chest x-ray showing a left lower lobe pneumonia. He was given a DuoNeb treatment and was started on zosyn and vancomycin. He was tachycardic in the ER and had a couple episodes of hypotension. His lactic acid was mildly elevated. He met sepsis criteria, so he was continued on antibiotics and given a 30 mL/kg IV fluid bolus. Hospital Course Hospital Course: The patient's chest x-ray showed a left basilar pneumonia. He had a right shoulder x-ray showing degenerative changes but nothing acute. He had an abdominal CT showing urinary stents with no evidence of stent dysfunction. The patient was given an IV fluid bolus and started on dual antibiotics as well as pain medication and duo nebs. A PT consult was ordered for his shoulder pain. His blood pressure improved with fluids. His shoulder pain did improve slightly as did his cough. A repeat chest x-ray was ordered. It showed interval improvement with residual small left basilar infiltrate. The patient was able to get up in his room and tolerated activity with no shortness of breath. His oxygen saturations were normal on room air. His right shoulder pain did improve and he was stable to be discharged home on p.o. Levaquin for an additional 1 week. He will follow-up in the office of [facility] in 1 week. Objective Vital signs: Temp Pulse Resp BP Pulse Ox 98.5 F 89 18 148/64 H 95 12/14/19 08:00 12/14/19 08:00 12/14/19 08:00 12/14/19 08:00 12/14/19 08:00 Narrative: Alert and oriented. Color is normal. No respiratory distress. Lungs are clear to auscultation. Heart is regular. Abdomen soft and nondistended with no masses or tenderness. Extremities no edema. Range of motion of right shoulder is improved with abduction just past 90 degrees. Internal and external rotation improved. Results Labs on day of discharge: Preliminary micro results at discharge 12/12/19 12:00 Blood Culture - Preliminary Blood NO GROWTH AFTER 48 HOURS 12/12/19 12:00 Blood Culture - Preliminary Blood NO GROWTH AFTER 48 HOURS DS: Diagnosis - Discharge Diagnosis (1) LLL pneumonia Status: Acute (2) Sepsis Status: Acute (3) Chronic kidney disease Status: Chronic (4) DDD (degenerative disc disease), cervical Status: Chronic (5) Dyspnea Status: Chronic (6) CAD (coronary artery disease) Status: Chronic (7) CHF (congestive heart failure) Status: Chronic (8) COPD (chronic obstructive pulmonary disease) Status: Chronic (9) Chronic renal insufficiency, stage V Status: Chronic (10) HTN (hypertension) Status: Chronic (11) Hx of lymphoma Status: Acute (12) Sprain of right shoulder Status: Acute Discharge Plan - Patient Discharge Instructions ACTIVITY: Continue current activity DIET: continue same diet Patient Instructions: Sepsis, DI for Pneumonia -- Adult, DI for Shoulder Pain - Follow up Plan Follow up with: Alex Patiño MD [Staff Physician] - 12/20/19 Disposition: Home, Self-Skilled Nursing Medications: Home Medications Medication Instructions Recorded Confirmed Type atorvastatin 40 mg tablet 40 mg PO HS 90 Days #90 01/18/18 12/12/19 History furosemide 20 mg tablet 20 mg PO Q48H 01/18/18 12/12/19 History gabapentin 300 mg capsule 300 mg PO BID 30 Days #01/18/18 12/12/19 History Aspirin [Aspirin 81mg chewable 81 mg PO DAILY 01/26/18 12/12/19 History tab] Iron,Carb/Vit C/Vit B12/Folic 1 each PO BID 05/13/18 12/12/19 History [Iron 100 Plus Tablet] Albuterol Sulfate [Albuterol HFA 2 puffs IH Q6HP PRN #1 inh 10/13/18 12/12/19 Rx Inhaler] Hydrocodone/Acetaminophen 1 tab PO Q6HP PRN 10/13/18 12/12/19 History [Hydrocodone-Acetamin 7.5-325] carvediloL [Carvedilol 3.125mg Tab] 3.125 mg PO BID 12/12/19 12/12/19 History levoFLOXacin [Levaquin 500mg 500 mg PO DAILY #7 tab 12/14/19 Rx tab] Prescriptions/Medication Reconciliation: New levoFLOXacin [Levaquin 500mg tab] 500 mg PO DAILY #7 tab Continued gabapentin 300 mg capsule 300 mg PO BID 30 Days #90 furosemide 20 mg tablet 20 mg PO Q48H atorvastatin 40 mg tablet 40 mg PO HS 90 Days #90 Hydrocodone/Acetaminophen [Hydrocodone-Acetamin 7.5-325] 1 tab PO Q6HP PRN PRN Reason: pain carvediloL [Carvedilol 3.125mg Tab] 3.125 mg PO BID Aspirin [Aspirin 81mg chewable tab] 81 mg PO DAILY Iron,Carb/Vit C/Vit B12/Folic [Iron 100 Plus Tablet] 1 each PO BID Albuterol Sulfate [Albuterol HFA Inhaler] 2 puffs IH Q6HP PRN #1 inh PRN Reason: Shortness Of Breath Or Wheezing - Problem Reconciliation Problems Reviewed?: Yes
== END 2019-12-14 11:25 | disposition home or self-care (01) | DRG 194 ==
LOC: ER 11:48 → 2ND 14:07
PROVIDERS: ADMIT Family Medicine; ATTEND Family Medicine
CPT/HCPCS: 36415; 71010; 71020; 71045; 71046; 72125; 73030; 74176; 80048; 80053; 83605; 84484; 85007; 85025; 87040; 87205; 87275; 87276; 93005; 94640; 94761; 96365; 96367; 99285; J2405; J2543; J3370

== ENCOUNTER → 2020-01-21 08:56 | Outpatient (POV) | payer MEDICARE, BC, SELFPAY | PROVIDERS: PCP Family Medicine; Visit Provider Otolaryngology | DX: Z00.00 Encounter for general adult medical examination without abnormal findings (principal) ==

== ENCOUNTER → 2020-03-10 10:23 | Outpatient (CLI) | payer MEDICARE, BC, SELFPAY ==
--- NOTE | 2020-03-10 10:27 | CT_ITS ---
PROCEDURE: CT ABDOMEN PELVIS WO CON CLINICAL INDICATION: RT FLANK PAIN Right flank pain COMPARISON: CT ABDOMEN PELVIS WO CON from 12/12/2019 TECHNIQUE: Axial images obtained with sagittal and coronal reformats. All CT scans at the facility use one or more dose reduction, viz: automated exposure control, ma/kV adjustment per patient size (including targeted exams where dose is matched to indication, i.e. head), or iterative reconstruction technique. FINDINGS: LOWER THORAX: There are coronary artery calcifications ABDOMEN & PELVIS: There is a subtle 8 mm hypodensity in the left hepatic lobe at the hepatic dome nonspecific and could be due to non-opacified vessel. Liver is otherwise unremarkable. The gallbladder, spleen, pancreas, and adrenal glands have an unremarkable appearance. There are bilateral ureteral stents present with the proximal aspect overlying the renal pelvis and distal aspect at the urinary bladder. There is severe right hydronephrosis. Marked cortical thinning involves the right kidney. Nephrolithiasis is noted on the left with multiple small stones in the lower pole and left renal pelvis. No intestinal obstruction or free air. No evidence of appendicitis. There is diffuse colonic diverticulosis. No evidence of diverticulitis. No intestinal obstruction or free air. There are small bilateral inguinal hernias containing fat. Fluid density is present in the left inguinal canal inferiorly. There has been prior fem-fem graft placed. Artifact is present from right hip prosthesis. There is a small amount fluid in the pelvis. There is an aortoiliac stent graft present within the mid and distal aorta and right common iliac artery.. The [place] aorta measures up to 3 cm in with and 3.3 cm AP. Proximal right common iliac measures 2 cm. There are degenerative changes in the lumbar spine with chronic wedge compression changes of L2 and L5 and to lesser degree at L3. There is diffuse osteopenia with a few scattered sclerotic foci of the sacrum on the right IMPRESSION: 1. There are bilateral ureteral stents in place. There has been interval development of severe right hydronephrosis. The left renal collecting system is decompressed and there is left nephrolithiasis. 2. [place] colonic diverticulosis without diverticulitis. 3. Other nonacute findings as described above. Dictated by: Jones Mills MD 03/11/2020 08:29 Electronically signed by Jones Mills MD in [facility] 03/11/2020 08:29
== END ==
PROVIDERS: PCP Family Medicine; Visit Provider Family Medicine
DX: R10.9 Unspecified abdominal pain (principal)
CPT/HCPCS: 74176

== ENCOUNTER → 2020-04-02 11:09 | Outpatient (POV) | payer MEDICARE, BC, SELFPAY | PROVIDERS: PCP Audiologist; Visit Provider Audiologist | DX: Z00.00 Encounter for general adult medical examination without abnormal findings (principal) ==

== ENCOUNTER → 2020-04-14 13:21 | Outpatient (CLI) | payer MEDICARE, BC, SELFPAY ==
--- NOTE | 2020-04-14 13:25 | US_ITS ---
PROCEDURE: US KIDNEY CLINICAL INDICATION: HYDRONEPHROSIS COMPARISON: CT ABDOMEN PELVIS WO CON from 03/10/2020 FINDINGS: The right kidney is [id number]. There is moderate right hydronephrosis. There is a linear area of increased echogenicity in the right renal pelvis and may be due to an indwelling stent. Please correlate clinically. The left kidney is [id number]. There is a 14 mm cyst in the upper pole of the left kidney. Left renal calculi are noted. IMPRESSION: Moderate right hydronephrosis with suspected renal stent. Left nephrolithiasis with small left renal cyst Dictated by: Jones Mills MD 04/14/2020 15:04 Electronically signed by Jones Mills MD in [facility] 04/14/2020 15:04
== END ==
PROVIDERS: PCP Audiologist; Visit Provider Urology
DX: N13.30 Unspecified hydronephrosis (principal)
CPT/HCPCS: 76770

== ENCOUNTER → 2020-05-05 09:26 | Outpatient (POV) | payer MEDICARE, BC, SELFPAY | PROVIDERS: PCP Family Medicine; Visit Provider Otolaryngology | DX: Z00.00 Encounter for general adult medical examination without abnormal findings (principal) ==

== ENCOUNTER → 2020-07-01 09:44 | Outpatient (CLI) | payer MEDICARE, BC, SELFPAY ==
[2020-07-01 10:27] LABS: Microscopic, Urine URINE MICROSCOPIC (MICROSCOPIC)
[2020-07-01 10:48] LABS: Basophils % 0.2 % (0.1-2.0); Eosinophils # 0.2 K/mm3 (0.0-0.4); Eosinophils % 2.6 % (0.1-12.0); Hematocrit 42.4 % (42.0-52.0); Hemoglobin 13.4 g/dL (14.1-18.0); Lymphocytes # 1.6 K/mm3 (0.7-4.5); Lymphocytes % 20.2 % (10-50); Mean Corpuscular HGB Conc 31.6 g/dL (31.8-35.4); Mean Corpuscular Hemoglobin 34.2 pg (27.0-31.2); Mean Corpuscular Volume 108.2 fl (80-94); Mean Platelet Volume 9.6 fl (7.4-10.4); Monocytes # 0.9 K/mm3 (0.1-1.0); Monocytes % 11.8 % (1.7-9.3); Neutrophils # 5.1 K/mm3 (1.8-7.8); Neutrophils % 65.2 % (37.0-80.0); Platelet Count 156 K/mm3 (142-424); Red Blood Count 3.92 M/mm3 (4.60-6.20); Red Cell Distribution Width 14.5 % (11.5-17.5); White Blood Count 7.8 K/mm3 (4.8-10.8)
[2020-07-01 10:52] LABS: Appearance,Urine CLEAR (Clear); Bilirubin,Urine Negative (Negative); Blood, Urine 3+ (Negative); Color,Urine YELLOW (Yellow); Glucose,Urine (UA) Negative (Negative); Ketones,Urine Negative (Negative); Leukocyte Esterase,Urine 1+ (Negative); Nitrate,Urine Negative (Negative); Protein,Urine 2+ (Negative); Specific Gravity, Urine 1.025 (1.005-1.030); Urobilinogen,Urine 0.2 EU/dl (0.2)
[2020-07-01 11:13] LABS: Bacteria,Urine 1+ /lpf; RBC,Urine 20-50 #/hpf (0-3); Squamous Epithelial Cell,Urine Occasional #/hpf (0-5)
[2020-07-01 11:16] LABS: Creatinine,Urine Random 112 mg/dL (Not Estab.)
[2020-07-01 11:21] LABS: Chloride 108 mmol/L (98-107)
[2020-07-01 11:22] LABS: Potassium 4.7 mmoL/L (3.5-5.1); Sodium 145 mmol/L (136-145)
[2020-07-01 11:24] LABS: Anion Gap 15.7 mEq/L (5-15); Blood Urea Nitrogen 29 mg/dl (9-20); Carbon Dioxide 26 mmol/L (22.0-30.0); Estimated Glomerular Filt Rate 26 ml/min (>60); GFR (African American) 32 ML/MIN (>60); Iron 86 ug/dL (49-181)
[2020-07-01 11:25] LABS: Calcium 9.2 mg/dl (8.4-10.2); Glucose 85 mg/dl (74-100); Phosphorous 3.5 mg/dl (2.5-4.5)
[2020-07-01 11:34] LABS: Total Iron Binding Capacity 293 ug/dL (261-462)
[2020-07-01 12:00] LABS: Ferritin 114 ng/ml (17.9-464)
[2020-07-07 02:55] LABS: 1,25 Dihydroxy Vitamin D 35 pg/mL (.); 1,25-Dihydroxy, Vitamin D-2 <10 pg/mL (.); 1,25-Dihydroxy, Vitamin D-3 34 pg/mL (.)
== END ==
PROVIDERS: Visit Provider Student in an Organized Health Care Education/Training Program
DX: N18.3 Chronic kidney disease, stage 3 (moderate) (principal); R82.90 Unspecified abnormal findings in urine
CPT/HCPCS: 36415; 80069; 81001; 82570; 82652; 82728; 83540; 83550; 84155; 85025; 87086

== ENCOUNTER → 2020-08-25 10:00 | Outpatient (POV) | payer MEDICARE, BC, SELFPAY | PROVIDERS: Visit Provider Otolaryngology | DX: Z00.00 Encounter for general adult medical examination without abnormal findings (principal) ==

== ENCOUNTER → 2020-09-08 08:18 | Outpatient (POV) | payer MEDICARE, BC, SELFPAY | PROVIDERS: Visit Provider Dermatology | DX: Z00.00 Encounter for general adult medical examination without abnormal findings (principal) ==

== ENCOUNTER → 2020-10-06 08:59 | Outpatient (CLI) | payer MEDICARE, BC, SELFPAY ==
[2020-10-06 09:07] LABS: Microscopic, Urine URINE MICROSCOPIC (MICROSCOPIC)
[2020-10-06 09:31] LABS: Basophils % 0.2 % (0.1-2.0); Eosinophils # 0.1 K/mm3 (0.0-0.4); Eosinophils % 1.4 % (0.1-12.0); Hematocrit 43.8 % (42.0-52.0); Hemoglobin 13.6 g/dL (14.1-18.0); Lymphocytes # 1.6 K/mm3 (0.7-4.5); Lymphocytes % 18.9 % (10-50); Mean Corpuscular HGB Conc 31.1 g/dL (31.8-35.4); Mean Corpuscular Hemoglobin 33.9 pg (27.0-31.2); Mean Corpuscular Volume 108.9 fl (80-94); Mean Platelet Volume 8.6 fl (7.4-10.4); Monocytes # 1.1 K/mm3 (0.1-1.0); Monocytes % 13.1 % (1.7-9.3); Neutrophils # 5.6 K/mm3 (1.8-7.8); Neutrophils % 66.4 % (37.0-80.0); Platelet Count 137 K/mm3 (142-424); Red Blood Count 4.02 M/mm3 (4.60-6.20); Red Cell Distribution Width 14.5 % (11.5-17.5); White Blood Count 8.4 K/mm3 (4.8-10.8)
[2020-10-06 10:14] LABS: Appearance,Urine CLEAR (Clear); Bilirubin,Urine Negative (Negative); Blood, Urine 3+ (Negative); Color,Urine YELLOW (Yellow); Glucose,Urine (UA) Negative (Negative); Ketones,Urine Negative (Negative); Leukocyte Esterase,Urine Negative (Negative); Nitrate,Urine Negative (Negative); Protein,Urine 2+ (Negative); Specific Gravity, Urine 1.025 (1.005-1.030); Urobilinogen,Urine 0.2 EU/dl (0.2)
[2020-10-06 10:44] LABS: Creatinine,Urine Random 140 mg/dL (Not Estab.)
[2020-10-06 11:33] LABS: Albumin Level 3.9 g/dl (3.5-5.0); Blood Urea Nitrogen 33 mg/dl (9-20); Calcium 8.9 mg/dl (8.4-10.2); Carbon Dioxide 26 mmol/L (22.0-30.0); Chloride 106 mmol/L (98-107); Estimated Glomerular Filt Rate 26 ml/min (>60); GFR (African American) 32 ML/MIN (>60); Glucose 90 mg/dl (74-100); Phosphorous 4.5 mg/dl (2.5-4.5); Sodium 140 mmol/L (136-145)
[2020-10-06 11:45] LABS: Intact Parathyroid Hormone 71.5 pg/mL (7.5-53.5)
[2020-10-06 11:50] LABS: 25-OH Vitamin D, Total 47.5 ng/mL (30-100)
[2020-10-06 12:05] LABS: Iron 64 ug/dL (49-181); Total Iron Binding Capacity 288 ug/dL (261-462)
[2020-10-06 12:27] LABS: Ferritin 115 ng/ml (17.9-464)
== END ==
PROVIDERS: Visit Provider Student in an Organized Health Care Education/Training Program
DX: N18.30 Chronic kidney disease, stage 3 unspecified (principal); Z85.72 Personal history of non-Hodgkin lymphomas; N18.9 Chronic kidney disease, unspecified
CPT/HCPCS: 36415; 80069; 81001; 82306; 82570; 82728; 83540; 83550; 83970; 84155; 85025

== ENCOUNTER → 2020-11-24 10:42 | Outpatient (POV) | payer MEDICARE, BC, SELFPAY | PROVIDERS: Visit Provider Otolaryngology | DX: Z00.00 Encounter for general adult medical examination without abnormal findings (principal) ==

== ENCOUNTER → 2021-02-02 09:55 | Outpatient (CLI) | payer MEDICARE, BC, SELFPAY ==
[2021-02-02 10:01] LABS: Microscopic, Urine URINE MICROSCOPIC (MICROSCOPIC)
[2021-02-02 10:17] LABS: Basophils # 0.1 K/mm3 (0-0.2); Basophils % 0.7 % (0.1-2.0); Eosinophils # 0.1 K/mm3 (0.0-0.4); Eosinophils % 1.6 % (0.1-12.0); Hematocrit 40.9 % (42.0-52.0); Hemoglobin 12.7 g/dL (14.1-18.0); Lymphocytes % 23.6 % (10-50); Mean Corpuscular Hemoglobin 33.5 pg (27.0-31.2); Mean Platelet Volume 9.3 fl (7.4-10.4); Monocytes # 0.9 K/mm3 (0.1-1.0); Monocytes % 11.1 % (1.7-9.3); Neutrophils # 5.3 K/mm3 (1.8-7.8); Neutrophils % 63.1 % (37.0-80.0); Platelet Count 156 K/mm3 (142-424); Red Blood Count 3.79 M/mm3 (4.60-6.20); Red Cell Distribution Width 14.6 % (11.5-17.5); White Blood Count 8.4 K/mm3 (4.8-10.8)
[2021-02-02 10:27] LABS: Appearance,Urine SL CLOUDY (Clear); Bilirubin,Urine Negative (Negative); Blood, Urine 3+ (Negative); Color,Urine YELLOW (Yellow); Glucose,Urine (UA) Negative (Negative); Ketones,Urine Negative (Negative); Leukocyte Esterase,Urine 1+ (Negative); Nitrate,Urine Negative (Negative); Protein,Urine 2+ (Negative); Urobilinogen,Urine 0.2 EU/dl (0.2)
[2021-02-02 10:38] LABS: Chloride 107 mmol/L (98-107); Sodium 140 mmol/L (136-145)
[2021-02-02 10:39] LABS: Albumin Level 4.1 g/dl (3.5-5.0)
[2021-02-02 10:41] LABS: Blood Urea Nitrogen 38 mg/dl (9-20); Carbon Dioxide 25 mmol/L (22.0-30.0); Estimated Glomerular Filt Rate 25 ml/min (>60); GFR (African American) 30 ML/MIN (>60); Iron 108 ug/dL (49-181)
[2021-02-02 10:42] LABS: Bacteria,Urine 1+ /lpf; Glucose 112 mg/dl (74-100); Phosphorous 3.7 mg/dl (2.5-4.5); RBC,Urine TNTC #/hpf (0-3)
[2021-02-02 10:51] LABS: Creatinine,Urine Random 81 mg/dL (Not Estab.); Total Iron Binding Capacity 271 ug/dL (261-462)
[2021-02-02 10:58] LABS: 25-OH Vitamin D, Total 44.3 ng/mL (30-100)
[2021-02-02 11:17] LABS: Ferritin 182 ng/ml (17.9-464)
== END ==
PROVIDERS: Visit Provider Student in an Organized Health Care Education/Training Program
DX: N18.4 Chronic kidney disease, stage 4 (severe) (principal); R82.90 Unspecified abnormal findings in urine
CPT/HCPCS: 36415; 80069; 81001; 82306; 82570; 82728; 83540; 83550; 84155; 85025; 87086

== ENCOUNTER 2021-02-14 02:00 | Emergency (ER) | payer MEDICARE, BC, SELFPAY ==
[2021-02-14 01:44] VITALS: BP 107/53; PULSE 104; RESP 18; TEMP 37.2; O2SAT 95; BMI 27.7
--- NOTE | 2021-02-14 01:57 | XR_ITS ---
PROCEDURE: XR WRIST LT MIN 3V CLINICAL INDICATION: pain COMPARISON: No exams were available for comparison FINDINGS: There is mild sclerosis and deformity of the navicular bone likely due to avascular necrosis, possibly there has been a previous incompletely healed fracture. There is narrowing of the radiocarpal joint with spurring of the tip of the radial styloid process. There is mild narrowing and sclerosis of the 1st carpometacarpal joint. There is no definite acute fracture seen. The soft tissues are normal. 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 Dictated by: Dr. Gavino Mathew MD 02/14/2021 09:46 Dr. Gavino Mathew MD in [place] 02/14/2021 09:46
--- NOTE | 2021-02-14 02:24 | HMH.EDGENADL ---
ED Disposition Clinical Impression: Arthritis of left wrist, Elevated glucose Chronic kidney disease Qualifiers: Chronic kidney disease stage: stage 4 (severe) Qualified Code(s): N18.4 - Chronic kidney disease, stage 4 (severe) Disposition: Home, Self-Care Condition on Discharge: Good Instructions: DI for Joint Pain Additional Instructions: call pcp monday - will arrange doppler of lt upper ext Referrals: Max Fraser MD [Primary Care Provider] - - Critical Care Critical Care Time: No Attestation: On 02/14/21, the high probability of a clinically significant, sudden or life threatening deterioration of the following system(s) required my full and direct attention, intervention and personal management. The time I documented below is in addition to time spent performing reported procedures but includes the following listed in this critical care notation. Medical Decision Making - Medical Records Medical records reviewed: Yes: I reviewed the patient's medical records. - Alex Inquiry Pt receiving controlled substance: No Vital Signs: 02/14/21 01:44 02/14/21 03:30 02/14/21 04:00 Temperature 98.9 F Temperature Source Oral Pulse Rate 97 H 96 H Pulse Rate [Right Radial] 104 H Respiratory Rate 18 16 Blood Pressure 107/65 L 115/73 Blood Pressure [Right Arm] 107/53 L Blood Pressure Mean 85 87 Blood Pressure Mean [Right Arm] 71 Blood Pressure Source [Right Arm] Automatic Cuff Blood Pressure Position [Right Arm] Supine 02 Sat by Pulse Oximetry 95 94 L 94 L Oxygen Delivery Method Room Air Room Air Room Air - Lab Data Lab results reviewed: Yes: I reviewed the patient's lab results. Lab Results 02/14/21 02:34: WBC 12.6 H, RBC 2.75 L, Hgb 10.7 L, Hct 29.8 L, MCV 108.5 H, MCH 38.9 H, MCHC 35.8 H, RDW 14.7, Plt Count 91 L, MPV 9.8, Neut % (Auto) 82.3 H, Lymph % (Auto) 7.0 L, Bradley % (Auto) 10.2 H, Eos % (Auto) 0.4, Baso % (Auto) 0.1, Neut # (Auto) 10.3 H, Lymph # (Auto) 0.9, Bradley # (Auto) 1.3 H, Eos # (Auto) 0.1, Baso # (Auto) 0.0 02/14/21 02:34: Sodium 141, Potassium 4.7, Chloride 110 H, Carbon Dioxide 20 L, Anion Gap 15.7 H, BUN 41 H, Creatinine 2.40 H, Estimated Creat Clear 31, Estimated GFR 26 L, Est GFR ( Amer) 32 L, Glucose 239 H, Calcium 8.7, C-Reactive Protein 117.7 H 02/14/21 02:34: ESR 32 H 02/14/21 02:34: Uric Acid 6.2 Result diagrams: 02/14/21 02:34 02/14/21 02:34 Orders (Tests/Meds): ED MEDICATIONS Generic Name Dose Route Start Last Admin Trade Name Freq PRN Reason Stop Dose Admin Sodium Chloride 1,000 mls @ 999 mls/hr 02/14/21 02:15 02/14/21 02:44 Sod Chlor 0.9% 1000ml Bag IV 02/14/21 03:15 999 mls/hr .Q1H1M BLANCA Administration Discontinued Medications Generic Name Dose Route Start Last Admin Trade Name Freq PRN Reason Stop Dose Admin Methylprednisolone Sodium Succinate 125 mg 02/14/21 02:06 02/14/21 02:43 Methylprednisolone Sod Succ 125mg Vial IV 02/14/21 02:07 125 mg ONCE ONE Administration Morphine Sulfate 2 mg 02/14/21 03:07 02/14/21 03:09 Morphine 2mg/Ml Syringe IV 02/14/21 03:08 2 mg ONCE ONE Administration ORDERS Category Date Time Status XR wrist LT min 3V Stat Exams 02/14/21 01:57 Taken Hemoglobin A1C Stat Lab 02/14/21 04:37 Ordered - Radiology Data #1 Image(s): Wrist Image Reviewed: Yes I reviewed the patient's radiology image Preliminary Findings: No Fracture Seen (djd) Medical Decision Narrative: uncertain as to etiology but seem acute arthritis lt wrist - elevated infl markers - has crf but glu is elevated - doubt dvt General Adult HPI - General Chief complaint: PAIN Stated complaint: Left wrist pain Time Seen by Provider: 02/14/21 02:00 Mode of Arrival: EMS Source of Information: Patient, Spouse, EMS, Medical Record Limitations: No Limitations Description of Symptoms (Recalled from ER Triage Doc. by RN): Pt reports left wrist pain for 2 days. Pt denies fall or injury. No
[2021-02-14 02:43] LABS: Basophils % 0.1 % (0.1-2.0); Eosinophils # 0.1 K/mm3 (0.0-0.4); Eosinophils % 0.4 % (0.1-12.0); Hemoglobin 10.7 g/dL (14.1-18.0); Lymphocytes # 0.9 K/mm3 (0.7-4.5); Mean Corpuscular HGB Conc 35.8 g/dL (31.8-35.4); Mean Corpuscular Hemoglobin 38.9 pg (27.0-31.2); Mean Corpuscular Volume 108.5 fl (80-94); Mean Platelet Volume 9.8 fl (7.4-10.4); Monocytes # 1.3 K/mm3 (0.1-1.0); Monocytes % 10.2 % (1.7-9.3); Neutrophils # 10.3 K/mm3 (1.8-7.8); Neutrophils % 82.3 % (37.0-80.0); Platelet Count 91 K/mm3 (142-424); Red Blood Count 2.75 M/mm3 (4.60-6.20); Red Cell Distribution Width 14.7 % (11.5-17.5); White Blood Count 12.6 K/mm3 (4.8-10.8)
[2021-02-14 02:44] LABS: Hematocrit 29.8 % (42.0-52.0)
[2021-02-14 02:50] LABS: Chloride 110 mmol/L (98-107); Potassium 4.7 mmoL/L (3.5-5.1); Sodium 141 mmol/L (136-145)
[2021-02-14 02:53] LABS: Anion Gap 15.7 mEq/L (5-15); Blood Urea Nitrogen 41 mg/dl (9-20); Carbon Dioxide 20 mmol/L (22.0-30.0); Creatinine Clearance Estimated 31 mL/min (50-200); Estimated Glomerular Filt Rate 26 ml/min (>60); GFR (African American) 32 ML/MIN (>60); Uric Acid 6.2 mg/dl (3.5-8.5)
[2021-02-14 02:54] LABS: Calcium 8.7 mg/dl (8.4-10.2); Glucose 239 mg/dl (74-100)
[2021-02-14 02:59] LABS: C-Reactive Protein 117.7 mg/L (0-4)
[2021-02-14 03:16] LABS: Erythrocyte Sedimentation Rate 32 mm/hr (0-20)
[2021-02-14 03:30] VITALS: BP 107/65; PULSE 97; O2SAT 94
[2021-02-14 04:00] VITALS: BP 115/73; PULSE 96; RESP 16; O2SAT 94
[2021-02-14 05:01] VITALS: BP 112/76; PULSE 73; RESP 16; TEMP 36.8; O2SAT 98
[2021-02-14 05:07] LABS: Hemoglobin A1C 5.9 % (4.0-6.0)
== END 2021-02-14 05:15 | disposition home or self-care (01) ==
PROVIDERS: Emergency Provider Emergency Medicine; PCP Family Medicine
DX: M79.632 Pain in left forearm (principal); M19.032 Primary osteoarthritis, left wrist; N18.4 Chronic kidney disease, stage 4 (severe); I25.2 Old myocardial infarction; I10 Essential (primary) hypertension; E78.5 Hyperlipidemia, unspecified; I25.10 Atherosclerotic heart disease of native coronary artery without angina pectoris; Z96.641 Presence of right artificial hip joint; Z87.891 Personal history of nicotine dependence; R73.9 Hyperglycemia, unspecified
CPT/HCPCS: 73110; 80048; 83036; 84550; 85025; 85651; 86140; 93971; 96365; 96375; 99282

== ENCOUNTER → 2021-02-14 15:00 | Outpatient (CLI) | payer MEDICARE, BC, SELFPAY ==
--- NOTE | 2021-02-14 | CA_ITS ---
APPROVED REPORT Left Upper Extremity Venous Study for DVT. Matte Cutter: Fauzia Bear, ASSOCIATE Indications Upper Extremity Pain: Bruising of left chest and axillary area. Post op 02/10/21 AICD, Large bandage over left chest from AICD Vein Imaging IJV (L): Normal phasic flow is seen. Normal flow, augmentation and compression is seen. No evidence of Deep Vein Thrombosis. No abnormalities are demonstrated. SCV (L): Normal phasic flow is seen. Normal flow, augmentation and compression is seen. No evidence of Deep Vein Thrombosis. No abnormalities are demonstrated. Axillary (L): Normal phasic flow is seen. Normal flow, augmentation and compression is seen. No evidence of Deep Vein Thrombosis. No abnormalities are demonstrated. Brachial (L): Normal phasic flow is seen. Normal flow, augmentation and compression is seen. No evidence of Deep Vein Thrombosis. No abnormalities are demonstrated. Basilic (L): Normal phasic flow is seen. Normal flow, augmentation and compression is seen. No evidence of Deep Vein Thrombosis. No abnormalities are demonstrated. Cephalic (L): Normal phasic flow is seen. Normal flow, augmentation and compression is seen. No evidence of Deep Vein Thrombosis. No abnormalities are demonstrated. Radial (L): Normal phasic flow is seen. Normal flow, augmentation and compression is seen. No evidence of Deep Vein Thrombosis. No abnormalities are demonstrated. Ulnar (L): Normal phasic flow is seen. Normal flow, augmentation and compression is seen. No evidence of Deep Vein Thrombosis. No abnormalities are demonstrated. Findings LUE venous negative for DVT/SVT. Vessels compressible. Limited imaging of Subclavian and Axillary vessels. Electronically signed by : Juana Bustamante, 02/17/2021 17:20:02
== END ==
PROVIDERS: PCP Family Medicine; Visit Provider Emergency Medicine
DX: M79.602 Pain in left arm (principal)
CPT/HCPCS: 93971

== ENCOUNTER → 2021-03-09 10:23 | Outpatient (POV) | payer MEDICARE, BC, SELFPAY | PROVIDERS: Visit Provider Otolaryngology | DX: Z00.00 Encounter for general adult medical examination without abnormal findings (principal) ==

== ENCOUNTER → 2021-03-24 11:56 | Outpatient (CLI) | payer MEDICARE, BC, SELFPAY ==
[2021-03-24 12:10] LABS: Microscopic, Urine URINE MICROSCOPIC (MICROSCOPIC)
[2021-03-24 12:42] LABS: Appearance,Urine CLEAR (Clear); Bilirubin,Urine Negative (Negative); Blood, Urine 3+ (Negative); Color,Urine YELLOW (Yellow); Glucose,Urine (UA) Negative (Negative); Ketones,Urine Negative (Negative); Leukocyte Esterase,Urine TRACE (Negative); Nitrate,Urine Negative (Negative); Protein,Urine 3+ (Negative); Specific Gravity, Urine 1.025 (1.005-1.030); Urobilinogen,Urine 0.2 EU/dl (0.2)
[2021-03-24 13:09] LABS: Creatinine,Urine Random 93 mg/dL (Not Estab.)
[2021-03-24 13:12] LABS: Basophils % 0.3 % (0.1-2.0); Eosinophils # 0.2 K/mm3 (0.0-0.4); Eosinophils % 2.1 % (0.1-12.0); Hematocrit 35.7 % (42.0-52.0); Hemoglobin 11.2 g/dL (14.1-18.0); Lymphocytes # 1.2 K/mm3 (0.7-4.5); Lymphocytes % 16.9 % (10-50); Mean Corpuscular HGB Conc 31.3 g/dL (31.8-35.4); Mean Corpuscular Hemoglobin 33.7 pg (27.0-31.2); Mean Corpuscular Volume 107.5 fl (80-94); Mean Platelet Volume 8.7 fl (7.4-10.4); Monocytes # 0.9 K/mm3 (0.1-1.0); Monocytes % 11.7 % (1.7-9.3); Platelet Count 110 K/mm3 (142-424); Red Blood Count 3.32 M/mm3 (4.60-6.20); Red Cell Distribution Width 14.9 % (11.5-17.5); White Blood Count 7.3 K/mm3 (4.8-10.8)
[2021-03-24 13:19] LABS: RBC,Urine 20-50 #/hpf (0-3)
[2021-03-24 13:24] LABS: Chloride 107 mmol/L (98-107); Potassium 4.9 mmoL/L (3.5-5.1); Sodium 140 mmol/L (136-145)
[2021-03-24 13:25] LABS: Albumin Level 3.9 g/dl (3.5-5.0)
[2021-03-24 13:27] LABS: Anion Gap 13.9 mEq/L (5-15); Blood Urea Nitrogen 34 mg/dl (9-20); Calcium 8.9 mg/dl (8.4-10.2); Carbon Dioxide 24 mmol/L (22.0-30.0); Estimated Glomerular Filt Rate 31 ml/min (>60); GFR (African American) 37 ML/MIN (>60); Glucose 105 mg/dl (74-100); Phosphorous 3.5 mg/dl (2.5-4.5)
== END ==
PROVIDERS: Visit Provider Student in an Organized Health Care Education/Training Program
DX: N18.4 Chronic kidney disease, stage 4 (severe) (principal)
CPT/HCPCS: 36415; 80069; 81001; 82570; 84155; 85025

== ENCOUNTER → 2021-03-30 12:49 | Outpatient (POV) | payer MEDICARE, BC, SELFPAY | PROVIDERS: Visit Provider Dermatology | DX: Z00.00 Encounter for general adult medical examination without abnormal findings (principal) ==

== ENCOUNTER 2021-06-17 00:43 | Observation (INO) | payer MEDICARE, BC, SELFPAY ==
[2021-06-17] VITALS (12 sets, daily range): BP systolic 131–187; BP diastolic 83–102; PULSE 70–82; RESP 12–25; TEMP 36.4–37.1; O2SAT 84–95; BMI 24.3; BMI 23.3; BMI 27.4
--- NOTE | 2021-06-17 00:48 | ECG_ITS ---
APPROVED REPORT Exam: Resting ECG HR:80 bpm ECG Measurements Heart Rate 80 AXES SC 400 P QRSd 130 QRS -62 QT 430 T 82 QTc 495 Conclusion Sinus rhythm with 1st degree AV block Left axis deviation Nonspecific intraventricular block Cannot rule out Septal infarct, age undetermined Abnormal ECG Electronically signed by : Ryan Aviles, 06/20/2021 21:12:18
--- NOTE | 2021-06-17 00:56 | XR_ITS ---
PROCEDURE INFORMATION: Exam: XR Chest Exam date and time: 06/17/2021 12:56 AM Age: 81 years old Clinical indication: Shortness of breath; Patient HX: Short of breath; Additional info: SOA TECHNIQUE: Imaging protocol: XR of the chest. Views: 2 views. COMPARISON: CR XR CHEST 2V 13/12/2019 09:10 FINDINGS: Tubes, catheters and devices: Since the comparison examination there is an interval placement of a new left chest wall cardiac device with intact right ventricular lead. Lungs: There is new mixed interstitial airspace opacities involving the right lung base with likely involvement of both the middle and lower lobes. There is some peribronchial thickening also present. Next interstitial airspace opacities in the left lateral lung base are present and similar to the comparison. No significant change in pulmonary vascularity. Pleural spaces: No pneumothorax. There is some mild new blunting of the right costophrenic angle laterally which may represent a pleural effusion. Heart/Mediastinum: Postoperative changes to the mediastinum and partially visualized abdominal vascular stent graft again noted. Calcified tortuous aorta with otherwise stable cardiac mediastinal silhouette. Bones/joints: Unremarkable. IMPRESSION: New mixed right lung base interstitial airspace opacities with possible small pleural effusion. Stable appearing left base similar densities which may represent chronic airspace consolidation and/or atelectasis with scar.
[2021-06-17 01:03] LABS: Basophils # 0.1 K/mm3 (0-0.2); Basophils % 0.7 % (0.1-2.0); Eosinophils # 0.2 K/mm3 (0.0-0.4); Eosinophils % 2.8 % (0.1-12.0); Hematocrit 36.5 % (42.0-52.0); Hemoglobin 11.5 g/dL (14.1-18.0); Lymphocytes # 1.4 K/mm3 (0.7-4.5); Lymphocytes % 21.2 % (10-50); Mean Corpuscular HGB Conc 31.4 g/dL (31.8-35.4); Mean Corpuscular Hemoglobin 33.4 pg (27.0-31.2); Mean Corpuscular Volume 106.2 fl (80-94); Monocytes # 0.9 K/mm3 (0.1-1.0); Monocytes % 13.2 % (1.7-9.3); Neutrophils # 4.2 K/mm3 (1.8-7.8); Neutrophils % 62.1 % (37.0-80.0); Platelet Count 116 K/mm3 (142-424); Red Blood Count 3.44 M/mm3 (4.60-6.20); Red Cell Distribution Width 15.5 % (11.5-17.5); White Blood Count 6.7 K/mm3 (4.8-10.8)
[2021-06-17 01:11] LABS: Chloride 109 mmol/L (98-107); Potassium 4.4 mmoL/L (3.5-5.1); Sodium 143 mmol/L (136-145)
[2021-06-17 01:14] LABS: Alanine Aminotransferase 15 U/L (12-78); Albumin Level 4.1 g/dl (3.5-5.0); Albumin/Globulin Ratio 1.7 (1.1-1.8); Alkaline Phosphatase 110 U/L (38-126); Anion Gap 11.4 mEq/L (5-15); Aspartate Amino Transferase 30 U/L (17-59); Bilirubin,Total 0.6 mg/dl (0.2-1.3); Blood Urea Nitrogen 33 mg/dl (9-20); Carbon Dioxide 27 mmol/L (22.0-30.0); Creatinine Clearance Estimated 26 mL/min (50-200); Estimated Glomerular Filt Rate 21 ml/min (>60); GFR (African American) 26 ML/MIN (>60); Globulin 2.4 g/dL (1.3-3.2); Total Protein,Serum 6.5 g/dl (6.3-8.2)
[2021-06-17 01:15] LABS: Calcium 8.6 mg/dl (8.4-10.2); Glucose 111 mg/dl (74-100)
[2021-06-17 01:16] LABS: Coronavirus 19, PCR Not Detected (NotDetected); Influenza A, PCR Not Detected (NotDetected); Influenza B, PCR Not Detected (NotDetected)
[2021-06-17 01:23] LABS: NT Pro Brain Natriuretic Pep. 7840 pg/mL (0-450)
[2021-06-17 01:27] LABS: Troponin I < 0.01 ng/ml (0.00-0.034)
--- NOTE | 2021-06-17 02:28 | PC.NURSE ---
Dr. Alberto paged and now on the phone with Dr. Trenton ED MD
--- NOTE | 2021-06-17 02:32 | NM_ITS ---
PROCEDURE: NM PUL VENT AND PERFUSE CLINICAL INDICATION: SOB, known DVT, CKD so avoiding CT COMPARISON: CR XR CHEST 2V from 06/17/2021 FINDINGS: Dose: 32.6 mCi technetium DTPA inhaled 8.95 mCi technetium MAA IV No segmental perfusion defects apparent. A small matched subsegmental incomplete area of decreased activity is present in the right upper lobe anteriorly. There is heterogeneous ventilation distribution. IMPRESSION: Low probability for pulmonary embolus. Dictated by: Jones Mills MD 06/17/2021 10:16 Jones Mills MD in [place] 06/17/2021 10:16
--- NOTE | 2021-06-17 02:34 | CA_ITS ---
APPROVED REPORT EXAM: Comprehensive 2D, Doppler, and color-flow Echocardiogram Armature Balancer: Fauzia Bear CRT Ht: 5 ft 9 in Wt: 188lbs BSA: 2.01 BP: 126/94 mmHg Indications: Congestive Heart Failure, Shortness of Breath, CAD, lymphoma, CKD, DVT, PAD, CABG, AICD 2D Dimensions LVOT 2.01 cm (M/F) 1.5-2.5 LA Volume 27.40 mL LA Volume Index 13.60 mL/m2 (M/F) 16-34 M-Mode Dimensions RVDd 4.18 cm (0.9-2.6) LA Diam 4.22 cm (1.9-4.0) LVDd 5.83 cm (3.5-5.7) Ao Diam 4.73 cm (2.0-3.7) LVDs 4.22 cm (3.5-5.7) IVSd 1.61 cm (0.6-1.1) PWd 0.84 cm (0.6-1.1) EF (Teich) 52.80% FS 27.60% EDV (Teich) 168.50 mL ESV (Teich) 79.50 mL LV Diastology E Decel Time 150.00 (160-240 msec) E/A Ratio 4.06 Aortic Valve AI PHT 379.00 ms AO Peak GR. 6.20 mmHg Mitral Valve MV E Max Efe. 166.00 (40-130 cm/s) MV A Velocity 41.00 (40-130 cm/s) E/A Ratio 4.06 MV Decel. Time 150.00 (160-240 ms) MV PHT 44.00 ms Pulmonary Valve PV Peak Velocity 255.00 (50-150 cm/s) Tricuspid Valve TR P. Velocity 289.00 cm/s RAP Estimate 10.00 mmHg RVSP 43.50 mmHg Left Ventricle Left atrium is mildly enlarged, left ventricle is mildly dilated, mild concentric left ventricular hypertrophy, visually estimated ejection fraction 25 to 30%, there is marked hypokinesis involving the anterior, anterior apical, apical and mid to distal septal wall. Doppler evidence of raise left ventricular end-diastolic pressure. Diastolic parameters are inconclusive. Right Ventricle Right atrium and right ventricle are mildly enlarged with normal contractility, there is AICD lead seen in the right ventricle. Aortic Valve Aortic valve is minimally thickened and calcified without aortic stenosis, there is trace aortic insufficiency. Mitral Valve Mitral valve is minimally thickened, there is mild mitral regurgitation. Tricuspid Valve Tricuspid valve grossly normal, calculated right ventricular systolic pressure is 44 mmHg. Pulmonic Valve Pulmonic valve is poorly visualized. Great Vessels Aortic root is normal size. Pericardium No significant pericardial effusion noted. Conclusion 1. Biatrial enlargement, mildly dilated left ventricle, severe reduced left ventricular systolic function, visually estimated ejection fraction 25 to 30% with segmental wall motion abnormality described above, Doppler evidence of raise left ventricular end-diastolic pressure. 2. Mildly enlarged right ventricle with normal contractility, AICD lead seen in the right ventricle. 3. Trace aortic, mild mitral and tricuspid regurgitation, calculated right ventricular systolic pressure is 44 mmHg. 4. No significant pericardial effusion noted. Electronically signed by : Alexandre Salcedo, 06/17/2021 16:12:34
--- NOTE | 2021-06-17 02:41 | HMH.EDGENADL ---
ED Disposition Clinical Impression: Acute exacerbation of CHF (congestive heart failure) Qualifiers: Heart failure type: unspecified Qualified Code(s): I50.9 - Heart failure, unspecified Disposition: Admitted As Inpatient Condition on Discharge: Good Referrals: Alex Patiño MD [Primary Care Provider] - - Critical Care Critical Care Time: No Attestation: On 06/17/21, the high probability of a clinically significant, sudden or life threatening deterioration of the following system(s) required my full and direct attention, intervention and personal management. The time I documented below is in addition to time spent performing reported procedures but includes the following listed in this critical care notation. Medical Decision Making - Alex Inquiry Pt receiving controlled substance: No Vital Signs: 06/17/21 00:50 06/17/21 01:00 06/17/21 01:30 Temperature 98.8 F Temperature Source Oral Pulse Rate 82 73 Pulse Rate [Right Brachial] 79 Respiratory Rate 25 H 12 Blood Pressure 168/94 H 173/91 H Blood Pressure [Right Arm] 150/95 H Blood Pressure Mean [Right Arm] 113 Blood Pressure Source [Right Arm] Automatic Cuff Blood Pressure Position [Right Arm] Sitting 02 Sat by Pulse Oximetry 93 L 94 L 94 L Oxygen Delivery Method Nasal Cannula Oxygen Flow Rate (LPM) 3 06/17/21 02:00 Temperature Temperature Source Pulse Rate 81 Pulse Rate [Right Brachial] Respiratory Rate Blood Pressure 187/102 H Blood Pressure [Right Arm] Blood Pressure Mean [Right Arm] Blood Pressure Source [Right Arm] Blood Pressure Position [Right Arm] 02 Sat by Pulse Oximetry 94 L Oxygen Delivery Method Oxygen Flow Rate (LPM) - Lab Data Lab Results 06/17/21 00:50: WBC 6.7, RBC 3.44 L, Hgb 11.5 L, Hct 36.5 L, MCV 106.2 H, MCH 33.4 H, MCHC 31.4 L, RDW 15.5, Plt Count 116 L, MPV 10.0, Neut % (Auto) 62.1, Lymph % (Auto) 21.2, Warren % (Auto) 13.2 H, Eos % (Auto) 2.8, Baso % (Auto) 0.7, Neut # (Auto) 4.2, Lymph # (Auto) 1.4, Warren # (Auto) 0.9, Eos # (Auto) 0.2, Baso # (Auto) 0.1 06/17/21 00:50: Sodium 143, Potassium 4.4, Chloride 109 H, Carbon Dioxide 27, Anion Gap 11.4, BUN 33 H, Creatinine 2.90 H, Estimated Creat Clear 26, Estimated GFR 21 L, Est GFR ( Amer) 26 L, Glucose 111 H, Calcium 8.6, Total Bilirubin 0.6, AST 30, ALT 15, Alkaline Phosphatase 110, Troponin I < 0.01, NT-Pro-B Natriuret Pep 7840 H, Total Protein 6.5, Albumin 4.1, Globulin 2.4, Albumin/Globulin Ratio 1.7 06/17/21 01:09: SARS-CoV-2 (PCR) Not detected, Influenza A Untype (PCR) Not detected, Influenza Type B (PCR) Not detected Result diagrams: 06/17/21 00:50 06/17/21 00:50 Orders (Tests/Meds): ORDERS Category Date Time Status Chest XR 2 view (NOT portable) [XR chest 2V] Stat Exams 06/17/21 00:56 Taken D-Dimer Stat Lab 06/17/21 02:32 Ordered Troponin I Q3H Lab 06/17/21 04:00 Ordered Troponin I Q3H Lab 06/17/21 07:00 Ordered VQ Scan [NM pul vent and perfuse] Stat Nuc Med 06/17/21 02:32 Ordered Venous Blood Gas Stat RT 06/17/21 02:32 Ordered CA echo doppler complete Stat Y 06/17/21 02:34 Ordered Medical Decision Narrative: The patient is a 81-year-old male with history of lymphoma, CKD, known DVT, CAD, PAD who presents to the emergency department with acute onset shortness of breath. Frontal diagnosis includes CHF exacerbation, PE, [place]. Given this plan to obtain EKG, troponin, CBC, CMP, BNP, chest x-ray, D-dimer, VBG. The patient's EKG is not concerning for STEMI and initial troponin is less than 0.01. BNP over 7000 with chest x-ray revealing bilateral edema concerning for a CHF exacerbation. The patient was given IV Lasix. With his history of cancer, known DVT, shortness of breath, new oxygen requirement I have very high suspicion for PE. I discussed this with the patient and that a CT PE would be the diagnosis of choice. The patient refused this given his CKD with low GFR. Given his refusal I discusse
[2021-06-17 02:56] LABS: VBG Base Excess -3.2 mmol/L (-2.4-2.3); VBG HCO3 23.3 mmol/L (23-30); VBG PCO2 48.9 mmol/L (35-51); VBG Total CO2 24.8 mmol/L (23-27)
[2021-06-17 02:56] LABS: D-Dimer 3.91 ug/mL (0.0-0.5)
--- NOTE | 2021-06-17 03:07 | PC.NURSE ---
pt took a one time dose of his own personal lortab for pain.
--- NOTE | 2021-06-17 04:20 | PC.NURSE ---
Patient is alert & oriented x4. He arrived to the unit around 0330. Patient bowel sounds are active. There is some scattered bruising noted; patient states that is from a previous fall a couple weeks ago. Patient does have some bilateral pitting edema in lower extremities. Vital signs are stable, will continue to monitor, call light within reach.
[2021-06-17 05:20] LABS: Troponin I < 0.01 ng/ml (0.00-0.034)
--- NOTE | 2021-06-17 08:02 | HMH.PHAVTE ---
[facility] Pharmacy VTE Monitoring - Patient Demographics Admission date: 06/17/21 Report Date: 06/17/21 Time: 08:02 Allergies/Adverse Reactions: Patient Allergies latex Allergy (Verified 09/15/20 10:05) kidney dye Allergy (Uncoded 03/18/18 22:52) Height: 1.75 m Weight: 84.395 kg Patient Problems: Current Active Problems Acute exacerbation of CHF (congestive heart failure) (Acute) - VTE Risk Labs: VTE Related Lab Results Hgb 11.5 g/dL (14.1-18.0) L 06/17/21 00:50 Hct 36.5 % (42.0-52.0) L 06/17/21 00:50 Plt Count 116 K/mm3 (142-424) L 06/17/21 00:50 BUN 33 mg/dl (9-20) H 06/17/21 00:50 Creatinine 2.90 mg/dl (0.66-1.25) H 06/17/21 00:50 Estimated Creat Clear 26 mL/min (50-200) 06/17/21 00:50 Was VTE Risk Assessment Performed: Yes VTE Score: 9 VTE Risk Level: Moderate Risk Clinical Trial Participant: No - Prophylaxis VTE Prophylaxis Ordered?: Yes Types of VTE Prophylaxis: TEDS Knee High
--- NOTE | 2021-06-17 08:08 | HMH.PHAINT ---
HOME LIST VERIFIED USING LIST FROM OUTPATIENT PHARMACY
[2021-06-17 09:12] LABS: Troponin I 0.01 ng/ml (0.00-0.034)
--- NOTE | 2021-06-17 11:10 | HMH.HPDC ---
<Lauryn Kumar - Last Filed: 06/21/21 22:22> General - General Admission date:: 06/17/21 Discharge date: 06/17/21 *Admission Date: 06/17/21 *Chief complaint: shortness of breath *History of present illness: The patient is a 81-year-old male with history of lymphoma, CKD, known DVT, CAD, PAD who presents to the emergency department with acute onset shortness of breath. Differential diagnosis includes CHF exacerbation, PE, [place]. Given this plan to obtain EKG, troponin, CBC, CMP, BNP, chest x-ray, D-dimer, VBG. The patient's EKG is not concerning for STEMI and initial troponin is less than 0.01. BNP over 7000 with chest x-ray revealing bilateral edema concerning for a CHF exacerbation. The patient was given IV Lasix. With his history of cancer, known DVT, shortness of breath, new oxygen requirement I have very high suspicion for PE. I discussed this with the patient and that a CT PE would be the diagnosis of choice. The patient refused this given his CKD with low GFR. Given his refusal I discussed starting anticoagulation and admission for VQ scan. The patient was agreeable to admission and further work-up but refused any anticoagulation. No leukocytosis. Other labs largely nonactionable. VQ scan and echo ordered in the morning. Zickel exam the patient also has diminished pulses in the right lower extremity however he has had arterial bypass on the side and does have dopplerable pulses so no further work-up necessary at this time. Although the patient also reports multiple falls his last fall was over a week ago and he has no current pain. He denies ever hitting his head or losing consciousness so no work-up of this deemed necessary. At this time medicine was consulted for admission for CHF exacerbation and for further work-up of PE. They were agreeable and the patient was admitted. (above as per ER physician) The patient is feeling much better this morning. His shortness of breath is improved. He is scheduled for a VQ scan this morning. [facility] History I have reviewed the patient's past medical history: Yes Medical History: Reports:: Cancer, Congestive Heart Failure, Chronic Obstructive Pulmonary Disease (COPD), Coronary Artery Disease, Deep Vein Thrombosis, Hyperlipidemia, Hypertension, Internal Pacemaker, Kidney Stones, Myocardial Infarction, Peripheral Vascular Disease, Renal Disease, Renal Insufficiency Denies:: Diabetes Mellitus Type 1, Diabetes Mellitus Type 2, Home Oxygen, MRSA *Have you ever received a pneumonia vaccine?: Yes *Have you received a flu vaccine this season?: Yes Other Medical History: Reports: Anemia, Arthritis, Chemotherapy, Radiation Therapy, Other Laterality Cases: Right: Total Hip Replacement Other Surgeries: Yes: CABG, Cancer Surgery, Cardiac Catheterization, Cardiac Surgery, Colonoscopy, Coronary Stent, Hernia Repair, Open Heart Surgery, Pacemaker, Ureter Stent, Other (rt hip replacement) Amputation: No Fractures: No - *Social History Smoking Status: Former smoker Tobacco Type: cigarettes # Packs/Day (cigarettes): 1 #Yrs smoked (if former smoker): 32 Alcohol Intake: former Alcohol Intake Frequency:: 3 or more drinks per day Substance Use Type: denies use *Occupational Status:: retired Housing: house Household Members: spouse *Travel in the last 8 weeks: None Family Hx:: Cancer Review of Systems - Constitutional Denies chills, Denies fever(s), Denies weakness - Eyes Denies blurry vision, Denies double vision - ENT Denies nasal congestion, Denies sore throat - *Cardiovascular Reports shortness of breath, Denies chest pain, Denies rapid, pounding, or irregular heartbeat - *Respiratory Denies cough, Denies shortness of breath - *Gastrointestinal Denies abdominal pain, Denies loose stools, Denies nausea, Denies vomiting - *Genitourinary Denies difficulty urinating, Denies painful urination - *Musculoskeletal Denies joint pain - *Neurologic Reports headache(s), Denies dizziness Exam
--- NOTE | 2021-06-17 11:29 | SW/DCPLANNER ---
Addendum entered by Niharika Davis 06/17/21 12:05: Maren Ambrose has stated that portable O2 will be delivered to [facility] this afternoon. Original Note: Patient information/order has been faxed to [facility] for home O2 and portable. I will follow up with Arnol once patient information is reviewed. Patient may discharge home later today.
== END 2021-06-17 15:20 | disposition home or self-care (01) ==
LOC: ER 00:48 → ICU 02:53
PROVIDERS: Admitting Provider Family Medicine; Emergency Provider Emergency Medicine; PCP Family Medicine; Visit Provider Family Medicine
DX: I13.0 Hypertensive heart and chronic kidney disease with heart failure and stage 1 through stage 4 chronic kidney disease, or unspecified chronic kidney disease (principal); I50.9 Heart failure, unspecified; I25.10 Atherosclerotic heart disease of native coronary artery without angina pectoris; Z95.0 Presence of cardiac pacemaker; I25.2 Old myocardial infarction; Z79.899 Other long term (current) drug therapy; N18.9 Chronic kidney disease, unspecified; Z91.81 History of falling; R29.6 Repeated falls; Z20.822 Contact with and (suspected) exposure to COVID-19; Z95.1 Presence of aortocoronary bypass graft; Z95.5 Presence of coronary angioplasty implant and graft; Z85.72 Personal history of non-Hodgkin lymphomas
CPT/HCPCS: G0378; 36415; 71046; 78582; 80053; 82803; 83880; 84484; 85025; 85378; 93005; 93306; 99284; A9540; A9567; U0003

== ENCOUNTER → 2021-07-06 10:14 | Outpatient (POV) | payer MEDICARE, BC, SELFPAY | PROVIDERS: Visit Provider Otolaryngology | DX: Z00.00 Encounter for general adult medical examination without abnormal findings (principal) ==

== ENCOUNTER → 2021-08-10 14:55 | Outpatient (CLI) | payer MEDICARE, BC, SELFPAY ==
[2021-08-10 15:01] LABS: Microscopic, Urine URINE MICROSCOPIC (MICROSCOPIC)
[2021-08-10 15:28] LABS: Basophils % 0.3 % (0.1-2.0); Eosinophils # 0.1 K/mm3 (0.0-0.4); Eosinophils % 1.7 % (0.1-12.0); Hematocrit 35.3 % (42.0-52.0); Lymphocytes # 1.4 K/mm3 (0.7-4.5); Mean Corpuscular HGB Conc 31.1 g/dL (31.8-35.4); Mean Corpuscular Hemoglobin 34.4 pg (27.0-31.2); Mean Corpuscular Volume 110.7 fl (80-94); Mean Platelet Volume 9.9 fl (7.4-10.4); Monocytes # 1.1 K/mm3 (0.1-1.0); Monocytes % 14.1 % (1.7-9.3); Neutrophils # 4.8 K/mm3 (1.8-7.8); Neutrophils % 64.9 % (37.0-80.0); Platelet Count 111 K/mm3 (142-424); Red Blood Count 3.18 M/mm3 (4.60-6.20); Red Cell Distribution Width 15.8 % (11.5-17.5); White Blood Count 7.4 K/mm3 (4.8-10.8)
[2021-08-10 15:51] LABS: Appearance,Urine CLEAR (Clear); Bilirubin,Urine Negative (Negative); Blood, Urine 3+ (Negative); Color,Urine YELLOW (Yellow); Glucose,Urine (UA) Negative (Negative); Ketones,Urine Negative (Negative); Leukocyte Esterase,Urine TRACE (Negative); Nitrate,Urine Negative (Negative); Protein,Urine 2+ (Negative); Specific Gravity, Urine 1.025 (1.005-1.030); Urobilinogen,Urine 0.2 EU/dl (0.2)
[2021-08-10 16:32] LABS: Bacteria,Urine 2+ /lpf; WBC,Urine 20-50 #/hpf (0-3)
[2021-08-10 17:32] LABS: Albumin Level 3.8 g/dl (3.5-5.0); Chloride 108 mmol/L (98-107); Sodium 140 mmol/L (136-145)
[2021-08-10 17:33] LABS: 25-OH Vitamin D, Total 59.8 ng/mL (30-100)
[2021-08-10 17:34] LABS: Blood Urea Nitrogen 49 mg/dl (9-20); Estimated Glomerular Filt Rate 26 ml/min (>60); GFR (African American) 32 ML/MIN (>60)
[2021-08-10 17:35] LABS: Calcium 8.6 mg/dl (8.4-10.2); Carbon Dioxide 20 mmol/L (22.0-30.0); Glucose 89 mg/dl (74-100); Iron 66 ug/dL (49-181); Phosphorous 3.8 mg/dl (2.5-4.5)
[2021-08-10 17:47] LABS: Total Iron Binding Capacity 271 ug/dL (261-462)
[2021-08-10 18:11] LABS: Ferritin 156 ng/ml (17.9-464)
[2021-08-10 18:56] LABS: Intact Parathyroid Hormone 63.9 pg/mL (7.5-53.5)
== END ==
PROVIDERS: PCP Family Medicine; Visit Provider Student in an Organized Health Care Education/Training Program
DX: N18.4 Chronic kidney disease, stage 4 (severe) (principal); R82.90 Unspecified abnormal findings in urine
CPT/HCPCS: 36415; 80069; 81001; 82306; 82728; 83540; 83550; 83970; 84155; 85025; 87086

== ENCOUNTER 2021-11-14 19:33 | Inpatient (IN) | payer MEDICARE, BC, SELFPAY ==
[2021-11-14 19:32] VITALS: BP 99/61; PULSE 113; RESP 20; TEMP 36.7; O2SAT 96; BMI 28.5
--- NOTE | 2021-11-14 19:57 | ECG_ITS ---
APPROVED REPORT Exam: Resting ECG HR:111 bpm ECG Measurements Heart Rate 111 AXES QRSd 138 QRS 10 QT 358 T 234 QTc 486 Conclusion Wide QRS rhythm Nonspecific intraventricular block T wave abnormality, consider inferolateral ischemia Abnormal ECG Electronically signed by : Ryan Aviles MD 11/17/2021 13:28:46
[2021-11-14 20:15] LABS: Basophils # 1.7 K/mm3 (0-0.2); Basophils % 7.3 % (0.1-2.0); Eosinophils # 0.1 K/mm3 (0.0-0.4); Eosinophils % 0.5 % (0.1-12.0); Hematocrit 33.5 % (42.0-52.0); Hemoglobin 9.9 g/dL (14.1-18.0); Lymphocytes # 0.6 K/mm3 (0.7-4.5); Lymphocytes % 2.6 % (10-50); Mean Corpuscular HGB Conc 29.7 g/dL (31.8-35.4); Mean Corpuscular Hemoglobin 34.6 pg (27.0-31.2); Mean Corpuscular Volume 116.5 fl (80-94); Mean Platelet Volume 10.3 fl (7.4-10.4); Monocytes % 4.1 % (1.7-9.3); Neutrophils # 22.3 K/mm3 (1.8-7.8); Neutrophils % 92.9 % (37.0-80.0); Platelet Count 115 K/mm3 (142-424); Red Blood Count 2.87 M/mm3 (4.60-6.20); Red Cell Distribution Width 15.8 % (11.5-17.5)
--- NOTE | 2021-11-14 20:16 | HMH.EDSOB ---
ED Disposition Clinical Impression: SIRS (systemic inflammatory response syndrome), Chronic renal insufficiency, stage V, Thrombocytopenia, Pacemaker CAP (community acquired pneumonia) Qualifiers: Laterality: left Lung location: lower lobe of lung Qualified Code(s): J18.9 - Pneumonia, unspecified organism Acute on chronic renal failure Qualifiers: Acute renal failure type: unspecified Chronic kidney disease stage: stage 4 (severe) Qualified Code(s): N17.9 - Acute kidney failure, unspecified; N18.4 - Chronic kidney disease, stage 4 (severe) Anemia Qualifiers: Anemia type: unspecified type Qualified Code(s): D64.9 - Anemia, unspecified Disposition: Admitted As Inpatient Condition on Discharge: Fair Instructions: DI for Nosebleed Referrals: Alex Patiño MD [Primary Care Provider] - - Critical Care Critical Care Time: No Attestation: On 11/14/21, the high probability of a clinically significant, sudden or life threatening deterioration of the following system(s) required my full and direct attention, intervention and personal management. The time I documented below is in addition to time spent performing reported procedures but includes the following listed in this critical care notation. Medical Decision Making - Medical Records Medical records reviewed: Yes: I reviewed the patient's medical records. - Alex Inquiry Pt receiving controlled substance: No Vital Signs: 11/14/21 19:32 11/14/21 21:00 Temperature 98.1 F Temperature Source Oral Pulse Rate 86 Pulse Rate [Apical] 113 H Respiratory Rate 20 22 Blood Pressure 105/59 L Blood Pressure [Right Arm] 99/61 L Blood Pressure Mean [Right Arm] 73 Blood Pressure Source [Right Arm] Automatic Cuff Blood Pressure Position [Right Arm] Sitting 02 Sat by Pulse Oximetry 96 93 L Oxygen Delivery Method Nasal Cannula Nasal Cannula Oxygen Flow Rate (LPM) 4 3 - Lab Data Lab results reviewed: Yes: I reviewed the patient's lab results. Lab Results 11/14/21 19:39: WBC 24.0 H*, RBC 2.87 L, Hgb 9.9 L, Hct 33.5 L, MCV 116.5 H, MCH 34.6 H, MCHC 29.7 L, RDW 15.8, Plt Count 115 L, MPV 10.3, Neut % (Auto) 92.9 H, Lymph % (Auto) 2.6 L, [place] % (Auto) 4.1, Eos % (Auto) 0.5, Baso % (Auto) 7.3 H, Neut # (Auto) 22.3 H, Lymph # (Auto) 0.6 L, [place] # (Auto) 1.0, Eos # (Auto) 0.1, Baso # (Auto) 1.7 H, Total Counted 100, Neutrophils % (Manual) 76, Band Neutrophils % 14.0 H, Lymphocytes % (Manual) 5 L, Metamyelocytes % 5.0 H, Platelet Estimate Slight decrease, RBC Morphology Not Reportable, Hypochromasia 2+, Poikilocytosis 1+, Macrocytosis 3+, ESR Cancelled 11/14/21 19:39: Sodium 138, Potassium 5.1, Chloride 104, Carbon Dioxide 23, Anion Gap 16.1 H, BUN 50 H, Creatinine 3.30 H, Estimated Creat Clear 22, Estimated GFR 18 L*, Est GFR ( Amer) 22 L, Glucose 98, Calcium 8.8, Total Bilirubin 1.4 H, AST 46, ALT 24, Alkaline Phosphatase 90, Troponin I 0.04 H, C-Reactive Protein Cancelled, Total Protein 6.5, Albumin 4.0, Globulin 2.5, Albumin/Globulin Ratio 1.6, Amylase 66, Procalcitonin Cancelled 11/14/21 19:39: Lipase 13 L 11/14/21 19:39: Lactate 1.6 Result diagrams: 11/14/21 19:39 11/14/21 19:39 Orders (Tests/Meds): ED MEDICATIONS Generic Name Dose Route Start Last Admin Trade Name Freq PRN Reason Stop Dose Admin Sodium Chloride 1,000 mls @ 999 mls/hr 11/14/21 20:00 11/14/21 21:09 Sod Chlor 0.9% 1000ml Bag IV 11/14/21 21:00 999 mls/hr .Q1H1M BLANCA Administration Levofloxacin/Dextrose 500 mg in 100 mls @ 100 mls/hr 11/14/21 22:15 11/14/21 22:09 Levaquin 500mg/100ml Premix IV 11/28/21 22:14 100 mls/hr Q24H BLANCA Administration Discontinued Medications Generic Name Dose Route Start Last Admin Trade Name Freq PRN Reason Stop Dose Admin Acetaminophen 1,000 mg 11/14/21 21:48 11/14/21 21:49 Acetaminophen 500mg Tab PO 11/14/21 21:49 1,000 mg ONCE ONE Administration ORDERS Category Date Time Status BNP [Brain Natriuretic P
[2021-11-14 20:20] LABS: Alanine Aminotransferase 24 U/L (12-78); Albumin/Globulin Ratio 1.6 (1.1-1.8); Alkaline Phosphatase 90 U/L (38-126); Amylase 66 U/L (30-110); Anion Gap 16.1 mEq/L (5-15); Aspartate Amino Transferase 46 U/L (17-59); Bilirubin,Total 1.4 mg/dl (0.2-1.3); Blood Urea Nitrogen 50 mg/dl (9-20); Calcium 8.8 mg/dl (8.4-10.2); Carbon Dioxide 23 mmol/L (22.0-30.0); Chloride 104 mmol/L (98-107); Creatinine Clearance Estimated 22 mL/min (50-200); Estimated Glomerular Filt Rate 18 ml/min (>60); GFR (African American) 22 ML/MIN (>60); Globulin 2.5 g/dL (1.3-3.2); Glucose 98 mg/dl (74-100); Lipase 13 U/L (23-300); Potassium 5.1 mmoL/L (3.5-5.1); Sodium 138 mmol/L (136-145); Total Protein,Serum 6.5 g/dl (6.3-8.2)
--- NOTE | 2021-11-14 20:28 | XR_ITS ---
PROCEDURE INFORMATION: Exam: XR Chest Exam date and time: 11/14/2021 8:28 PM Age: 81 years old Clinical indication: Cough and other: Coughing up blood; Cough with hemorrhage; Prior surgery; Surgery date: 6+ months; Surgery type: Defibrillator TECHNIQUE: Imaging protocol: XR of the chest. Views: 2 views. COMPARISON: CR XR CHEST 2V 06/17/2021 1:08 AM FINDINGS: Tubes, catheters and devices: Cardiac pacing device in the left chest wall. Lungs: Hazy opacity at the lung bases somewhat improved from prior examination. Pleural spaces: No pleural effusion. No pneumothorax. Heart/Mediastinum: Unremarkable. No cardiomegaly. Bones/joints: Degenerative changes of the shoulders. IMPRESSION: Hazy opacity at the lung bases somewhat improved from prior examination.
[2021-11-14 20:31] LABS: Hypochromasia 2+; Lymphocytes % 5 % (10-50); Macrocytosis 3+; Neutrophils % 76 % (42-76); Platelet Estimate Slight Decrease; Poikilocytosis 1+; Total Cells Counted 100
[2021-11-14 20:34] LABS: Troponin I 0.04 ng/ml (0.00-0.034)
[2021-11-14 20:39] LABS: MANUAL DIFFERENTIAL MANUAL DIFFERENTIAL (MANUAL DIFF)
[2021-11-14 21:00] VITALS: BP 105/59; PULSE 86; RESP 22; O2SAT 93
[2021-11-14 21:29] LABS: Lactic Acid 1.6 mmol/L (0.7-2.1)
[2021-11-14 21:51] LABS: Coronavirus 19, PCR Not Detected (NotDetected); Influenza A, PCR Not Detected (NotDetected); Influenza B, PCR Not Detected (NotDetected)
--- NOTE | 2021-11-14 22:05 | PC.NURSE ---
Called and spoke with patients to confirm patients home medication as patient was confused about which medications he takes and when he took them last.
--- NOTE | 2021-11-14 22:16 | PC.NURSE ---
Fam Devi in the lab, covid test was negative.
[2021-11-14 22:30] LABS: NT Pro Brain Natriuretic Pep. 30000 pg/mL (0-450)
--- NOTE | 2021-11-14 22:57 | PC.NURSE ---
patient up to floor via stretcher @ this time.
[2021-11-14 23:46] VITALS: BP 105/59; PULSE 86; RESP 18; TEMP 36.8; O2SAT 94
[2021-11-14 23:51] VITALS: BMI 28.3
[2021-11-14 23:53] VITALS: BP 90/50; PULSE 80; RESP 18; TEMP 36.4; O2SAT 90
[2021-11-14 23:58] LABS: Troponin I 0.05 ng/ml (0.00-0.034)
[2021-11-15] VITALS (8 sets, daily range): BP systolic 90–113; BP diastolic 54–73; PULSE 67–90; RESP 16–18; TEMP 36.4–36.9; O2SAT 90–94; BMI 27.9
[2021-11-15 03:19] LABS: Basophils # 0.4 K/mm3 (0-0.2); Basophils % 1.6 % (0.1-2.0); Eosinophils # 0.1 K/mm3 (0.0-0.4); Eosinophils % 0.2 % (0.1-12.0); Lymphocytes # 0.7 K/mm3 (0.7-4.5); Lymphocytes % 2.6 % (10-50); Mean Corpuscular HGB Conc 30.3 g/dL (31.8-35.4); Mean Corpuscular Hemoglobin 34.7 pg (27.0-31.2); Mean Corpuscular Volume 114.7 fl (80-94); Mean Platelet Volume 10.7 fl (7.4-10.4); Monocytes # 1.3 K/mm3 (0.1-1.0); Monocytes % 5.4 % (1.7-9.3); Neutrophils # 22.4 K/mm3 (1.8-7.8); Neutrophils % 90.2 % (37.0-80.0); Platelet Count 86 K/mm3 (142-424); Red Blood Count 2.49 M/mm3 (4.60-6.20)
[2021-11-15 03:22] LABS: Hematocrit 28.6 % (42.0-52.0); Hemoglobin 8.7 g/dL (14.1-18.0); White Blood Count 24.8 K/mm3 (4.8-10.8)
[2021-11-15 03:48] LABS: Troponin I 0.05 ng/ml (0.00-0.034)
[2021-11-15 03:57] LABS: Chloride 110 mmol/L (98-107)
[2021-11-15 03:58] LABS: Potassium 4.8 mmoL/L (3.5-5.1); Sodium 139 mmol/L (136-145)
[2021-11-15 04:01] LABS: Anion Gap 14.8 mEq/L (5-15); Blood Urea Nitrogen 50 mg/dl (9-20); Calcium 7.9 mg/dl (8.4-10.2); Carbon Dioxide 19 mmol/L (22.0-30.0); Creatinine Clearance Estimated 22 mL/min (50-200); Estimated Glomerular Filt Rate 19 ml/min (>60); GFR (African American) 23 ML/MIN (>60); Glucose 98 mg/dl (74-100); Magnesium 1.4 mg/dl (1.6-2.3)
--- NOTE | 2021-11-15 05:26 | PC.NURSE ---
Pt is A/O x3. Pt is wearing 2L NC with sats >90%. Pt usually wears 2L at home as well. Pt has voiced no c/o of pain, N/V thus far in shift. IV is patent infusing NS @ 50ml/hr. Call light within reach.
--- NOTE | 2021-11-15 11:48 | HMH.PHAINT ---
MEDICATION RECONCILIATION COMPLETE USING LIST FROM MD OFFICE AND EXTERNAL PHARMACY FILL HISTORY.
--- NOTE | 2021-11-15 11:49 | HMH.PHAVTE ---
[facility] Pharmacy VTE Monitoring - Patient Demographics Allergies/Adverse Reactions: Patient Allergies latex Allergy (Verified 09/15/20 10:05) kidney dye Allergy (Uncoded 03/18/18 22:52) Height: 1.73 m Weight: 83.67 kg Patient Problems: Current Active Problems Chronic renal insufficiency, stage V (Chronic) Acute on chronic renal failure (Acute) CAP (community acquired pneumonia) (Acute) SIRS (systemic inflammatory response syndrome) (Acute) Thrombocytopenia (Acute) Anemia (Acute) Pacemaker (Acute) - VTE Risk Labs: VTE Related Lab Results Hgb 8.7 g/dL (14.1-18.0) L D 11/15/21 02:50 Hct 28.6 % (42.0-52.0) L 11/15/21 02:50 Plt Count 86 K/mm3 (142-424) L D 11/15/21 02:50 BUN 50 mg/dl (9-20) H 11/15/21 02:50 Creatinine 3.20 mg/dl (0.66-1.25) H 11/15/21 02:50 Estimated Creat Clear 22 mL/min (50-200) 11/15/21 02:50 Was VTE Risk Assessment Performed: Yes VTE Score: 7 VTE Risk Level: Moderate Risk Clinical Trial Participant: No - Prophylaxis VTE Prophylaxis Ordered?: Yes Types of VTE Prophylaxis: TEDS Knee High Location of Applied Device: Bilateral Lower Extremeties
--- NOTE | 2021-11-15 12:03 | HMH.HP ---
*Admission Date: 11/15/21 <Renetta Baptiste 11/15/21 12:29> *Chief complaint: Community Acquired Pneumonia <Gavino Baptiste11/15/21 12:29> *History of present illness: Mr. Graff is a 81yo white male with history of CKD, CAD, CHF, COPD, HTN, PPM/AICD, Lymphoma, PVD, bilateral renal stents, chronic home oxygen use, and chronic pain. He presented to the [facility] ED yesterday evening via EMS describing a two-day history of hemoptysis following some nosebleeding. He also reported right-sided abdominal pain which began yesterday. He denies any shortness of breath or difficulty breathing, however, his is at the bedside and reports EMS was called due to concerns with increasing dyspnea yesterday. Upon arrival, his WBC was elevated at 24.0. Hemoglobin was 9.9 with Hematocrit of 33.5. BUN was 50 with Creatinine of 3.30 and eGRF of 18. His CXR showed hazy opacities in the lung bases somewhat improved from prior. He was admitted for further evaluation and treatment of likely community acquired pneumonia and acute kidney injury. <Renetta Baptiste 11/15/21 12:29> [facility] History Medical History: Reports:: Atherosclerotic Heart Disease, Cancer, Congestive Heart Failure, Chronic Obstructive Pulmonary Disease (COPD), Coronary Artery Disease, Deep Vein Thrombosis, Hyperlipidemia, Hypertension, Internal Pacemaker, Kidney Stones, Myocardial Infarction, Peripheral Artery Disease, Peripheral Vascular Disease, Renal Disease, Renal Insufficiency Denies:: Diabetes Mellitus Type 1, Diabetes Mellitus Type 2, Home Oxygen, MRSA <Renetta Baptiste 11/15/21 12:29> *Have you ever received a pneumonia vaccine?: No <Renetta Baptiste 11/15/21 12:29> *Have you received a flu vaccine this season?: No <Renetta Baptiste 11/15/21 12:29> Other Medical History: Reports: Anemia, Arthritis, Chemotherapy, Radiation Therapy, Other <Renetta Baptiste 11/15/21 12:29> Laterality Cases: Right: Total Hip Replacement <Renetta Baptiste 11/15/21 12:29> Other Surgeries: Yes: CABG, Cancer Surgery, Cardiac Catheterization, Cardiac Surgery, Colonoscopy, Coronary Stent, Hernia Repair, Open Heart Surgery, Pacemaker, Skin Cancer Excision, Ureter Stent, Other (rt hip replacement) <Renetta Baptiste 11/15/21 12:29> Amputation: No <Renetta Baptiste 11/15/21 12:29> Fractures: No <Renetta Baptiste 11/15/21 12:29> - *Social History Smoking Status: Former smoker <Renetta Baptiste 11/15/21 12:29> Tobacco Type: cigarettes <Renetta Baptiste 11/15/21 12:29> # Packs/Day (cigarettes): 1 <Renetta Baptiste 11/15/21 12:29> #Yrs smoked (if former smoker): 32 <Gavino Baptiseta 11/15/21 12:29> Alcohol Intake: former <Renetta Baptiste 11/15/21 12:29> Alcohol Intake Frequency:: 3 or more drinks per day <Renetta aBptiste 11/15/21 12:29> Substance Use Type: denies use <Renetta Baptiste 11/15/21 12:29> *Occupational Status:: retired <Renetta Baptiste 11/15/21 12:29> Housing: house <Renetta Baptiste 11/15/21 12:29> Household Members: spouse <Renetta Baptiste 11/15/21 12:29> *Travel in the last 8 weeks: None <Renetta Baptiste 11/15/21 12:29> Family Hx:: Cancer <Renetta Baptiste 11/15/21 12:29> Review of Systems - Constitutional Denies chills, Denies fever(s) <Renetta Baptiste 11/15/21 12:29> - Eyes Denies change in vision <Renetta Baptiste 11/15/21 12:29> - ENT Reports nosebleed, Reports nasal congestion, Denies sore throat <Renetta Baptiste 11/15/21 12:29> - *Cardiovascular Reports shortness of breath, Reports shortness of breath with activity, Reports leg swelling, Denies chest pain at rest, Denies chest pain with activity <Renetta Baptiste 11/15/21 12:29> - *Respiratory Reports cough, Reports shortness of breath, Reports shortness of breath with activity, Reports coughing up blood <Renetta Baptiste 11/15/21 12:29> - *Gastrointestinal Reports abdominal pain, Denies loose stools, Denies nausea, Denies vomiting <Renetta Baptiste 11/15/21 12:29> - *Genitourinary Denies difficulty urinating <Renetta Baptiste 11/15/21 12:29> - *Neurologic Denies localized weakness <Renetta Baptiste 11/15/21 1
--- NOTE | 2021-11-15 15:18 | PC.NURSE ---
1512- spoke to Vamsi in lab, regarding positive blood cultures. verified name, , and room number [id number]-left a message w/ Jovita at [facility], will call back w/ any New Orders
--- NOTE | 2021-11-15 19:02 | PC.NURSE ---
Pt has been pleasant this shift. x1 assist to use the urinal. Pt is very unsteady while standing up. +2 pitting edema at BLE. Scattered rhonchi noted t/o all lung mancia. Hematuria noted this shift. Active bowel sounds in all 4 quads, no BM reported this shift. No other acute changes or complaints, will continue to monitor.
[2021-11-15 20:29] LABS: Microscopic, Urine URINE MICROSCOPIC (MICROSCOPIC)
[2021-11-15 20:33] LABS: Appearance,Urine TURBID (Clear); Bilirubin,Urine Negative (Negative); Blood, Urine 3+ (Negative); Color,Urine BROWN (Yellow); Glucose,Urine (UA) Negative (Negative); Ketones,Urine Negative (Negative); Leukocyte Esterase,Urine TRACE (Negative); Nitrate,Urine Negative (Negative); Protein,Urine 2+ (Negative); Urobilinogen,Urine 0.2 EU/dl (0.2)
[2021-11-15 20:46] LABS: RBC,Urine TNTC #/hpf (0-3); Squamous Epithelial Cell,Urine Occasional #/hpf (0-5); WBC,Urine Occasional #/hpf (0-3)
[2021-11-16] VITALS (9 sets, daily range): BP systolic 93–134; BP diastolic 49–65; PULSE 53–86; RESP 17–22; TEMP 36.3–36.7; O2SAT 93–95; BMI 27.8
[2021-11-16 06:56] LABS: Basophils % 0.3 % (0.1-2.0); Eosinophils # 0.1 K/mm3 (0.0-0.4); Eosinophils % 0.4 % (0.1-12.0); Hematocrit 28.6 % (42.0-52.0); Hemoglobin 8.5 g/dL (14.1-18.0); Lymphocytes # 0.8 K/mm3 (0.7-4.5); Lymphocytes % 6.6 % (10-50); Mean Corpuscular HGB Conc 29.7 g/dL (31.8-35.4); Mean Corpuscular Hemoglobin 34.7 pg (27.0-31.2); Mean Corpuscular Volume 116.9 fl (80-94); Mean Platelet Volume 10.8 fl (7.4-10.4); Monocytes % 7.9 % (1.7-9.3); Neutrophils # 10.4 K/mm3 (1.8-7.8); Neutrophils % 84.7 % (37.0-80.0); Platelet Count 112 K/mm3 (142-424); Red Blood Count 2.44 M/mm3 (4.60-6.20); Red Cell Distribution Width 15.9 % (11.5-17.5); White Blood Count 12.2 K/mm3 (4.8-10.8)
[2021-11-16 07:01] LABS: Chloride 110 mmol/L (98-107); Potassium 4.3 mmoL/L (3.5-5.1); Sodium 136 mmol/L (136-145)
[2021-11-16 07:04] LABS: Anion Gap 11.3 mEq/L (5-15); Blood Urea Nitrogen 60 mg/dl (9-20); Calcium 7.8 mg/dl (8.4-10.2); Carbon Dioxide 19 mmol/L (22.0-30.0); Creatinine Clearance Estimated 22 mL/min (50-200); Estimated Glomerular Filt Rate 19 ml/min (>60); GFR (African American) 23 ML/MIN (>60); Glucose 85 mg/dl (74-100)
--- NOTE | 2021-11-16 07:45 | PC.NURSE ---
Addendum entered by Pham Davis RN 11/16/21 07:50: telemetry afib, irregular, hr 80's Original Note: pt states he did not sleep well through the night, pt was given pain med for some abd discomfert at bedtime with some relief, pt b/p's running low through the night but stable, pt axo x4, urine is still dark tea colored , pt has had 3 bm's through the night but flushes before can be seen, pt states they are starting to get loose, instructed to call before flushes next time. no other issues or concerns noted.
--- NOTE | 2021-11-16 08:37 | HMH.ACPN2 ---
<Starla Salcedo - Last Filed: 11/16/21 08:45> Internal Medicine - PN: Subj *Date: 11/16/21 *Time: 08:45 Interval history: Patient states he does feel better this morning. He had a pain pill for right hip and right leg pain last p.m. He is eating some and slept. He denies chest pain and shortness of breath. He states he has a productive cough. He has ambulated to the bathroom. He describes several stools during the night. He expects diarrhea. CBC shows a improved white blood cell count of 12,200 with a hemoglobin of 8.5 hematocrit of 28.6. Blood chemistries show sodium of 136 potassium of 4.3. BUN remains elevated at 60 with a creatinine of 3.2. Blood cultures are positive with ID pending Exam Vital signs and Labs for Last 24 Hours: Temp Pulse Resp BP Pulse Ox 97.7 F 60 18 93/49 L 93 L 11/16/21 03:30 11/16/21 04:00 11/16/21 03:30 11/16/21 03:30 11/16/21 03:30 Laboratory Results - last 24 hr 11/14/21 20:21: Urine Color Brown, Urine Appearance Turbid, Urine pH 6.0, Ur Specific [place] 1.020, Urine Protein 2+, Urine Glucose (UA) Negative, Urine Ketones Negative, Urine Blood 3+, Urine Nitrate Negative, Urine Bilirubin Negative, Urine Urobilinogen 0.2, Ur Leukocyte Esterase Trace, Urine RBC Tntc, Urine WBC Occasional, Ur Squamous Epith Cells Occasional, Urine Bacteria None 11/16/21 06:26: WBC 12.2 H D, RBC 2.44 L, Hgb 8.5 L, Hct 28.6 L, MCV 116.9 H, MCH 34.7 H, MCHC 29.7 L, RDW 15.9, Plt Count 112 L D, MPV 10.8 H, Neut % (Auto) 84.7 H, Lymph % (Auto) 6.6 L, [place] % (Auto) 7.9, Eos % (Auto) 0.4, Baso % (Auto) 0.3, Neut # (Auto) 10.4 H, Lymph # (Auto) 0.8, [place] # (Auto) 1.0, Eos # (Auto) 0.1, Baso # (Auto) 0.0 11/16/21 06:26: Sodium 136, Potassium 4.3, Chloride 110 H, Carbon Dioxide 19 L, Anion Gap 11.3, BUN 60 H, Creatinine 3.20 H, Estimated Creat Clear 22, Estimated GFR 19 L*, Est GFR ( Amer) 23 L, Glucose 85, Calcium 7.8 L I & O for Last 24 hours: Intake & Output 11/13/21 11/14/21 11/15/21 11/16/21 11:59 11:59 11:59 11:59 Intake Total 360 / 360 1170 / 1170 Output Total 0 / 0 400 / 400 Balance 360 / 360 770 / 770 Weight 184 lb 7.372 oz 183 lb 6 oz Microbiology Reports for the Last 24 Hours: Microbiology 11/14/21 19:39 Blood Blood Culture - Preliminary Gram Positive Cocci 11/14/21 19:39 Blood Blood Culture - Preliminary Gram Positive Cocci - Constitutional no acute distress Comments: Appears comfortable lying in the bed. - *Routine Respiratory Exam Present: diminished air movement (On the right.) - *Routine Cardiovascular Exam Present: RRR - *Routine Abdominal Exam Present: soft, normoactive bowel sounds. Absent: tenderness - *Routine Extremities Exam Present: edema (Bilateral leg edema greater on the right). Absent: calf tenderness - *Routine Neurological Exam Present: alert, oriented X3 Assessment and Plan (1) Acute on chronic renal failure Status: Acute Qualifiers: Acute renal failure type: unspecified Chronic kidney disease stage: stage 4 (severe) Qualified Code(s): N17.9 - Acute kidney failure, unspecified; N18.4 - Chronic kidney disease, stage 4 (severe) Category: Medical Code(s): N17.9 - Acute kidney failure, unspecified; N18.9 - Chronic kidney disease, unspecified (2) Anemia Status: Acute Qualifiers: Anemia type: unspecified type Qualified Code(s): D64.9 - Anemia, unspecified Category: Medical Code(s): D64.9 - Anemia, unspecified (3) CAP (community acquired pneumonia) Status: Acute Qualifiers: Laterality: left Lung location: lower lobe of lung Qualified Code(s): J18.9 - Pneumonia, unspecified organism Category: Medical Code(s): J18.9 - Pneumonia, unspecified organism (4) Pacemaker Status: Acute Category: Medical Code(s): Z95.0 - Presence of cardiac pacemaker (5) SIRS (systemic inflammatory response syndrome) Status: Acute
--- NOTE | 2021-11-16 08:49 | XR_ITS ---
PROCEDURE INFORMATION: Exam: XR Chest Exam date and time: 11/16/2021 8:49 AM Age: 81 years old Clinical indication: Prior surgery; Surgery type: Open heart, pacemaker; Patient HX: Coughing up sputum; Additional info: Follow up TECHNIQUE: Imaging protocol: XR of the chest. Views: 1 view. COMPARISON: CR XR CHEST 2V 11/14/2021 8:40 PM FINDINGS: Tubes, catheters and devices: Cardiac rhythm maintenance device is in place. Lungs: Mildly improved bibasilar airspace opacities. Pleural spaces: No substantial pleural effusion. No pneumothorax. Heart/Mediastinum: Changes of prior CABG. Bones/joints: Unremarkable. IMPRESSION: Mildly improved bibasilar airspace opacities.
--- NOTE | 2021-11-16 17:20 | PC.NURSE ---
has done well this shift. has had complaints of diarrhea but stool has remained loose. rings out as needed. has been up walking too and from bathroom with assistance. has complained of some coughing, and wanting to relax. vitals have been stable.
[2021-11-16 20:43] LABS: Peripheral Smear Review Scanned Result
[2021-11-17] VITALS: BP 115/64; PULSE 70; PULSE 80; RESP 18; TEMP 36.3; O2SAT 94
[2021-11-17 03:31] VITALS: BP 109/59; PULSE 78; RESP 18; TEMP 36.5; O2SAT 92
[2021-11-17 04:00] VITALS: PULSE 80
[2021-11-17 04:54] VITALS: BMI 28.5
[2021-11-17 06:50] LABS: Basophils % 0.3 % (0.1-2.0); Eosinophils # 0.1 K/mm3 (0.0-0.4); Eosinophils % 1.1 % (0.1-12.0); Hematocrit 27.8 % (42.0-52.0); Hemoglobin 8.2 g/dL (14.1-18.0); Lymphocytes # 0.7 K/mm3 (0.7-4.5); Lymphocytes % 9.4 % (10-50); Mean Corpuscular HGB Conc 29.6 g/dL (31.8-35.4); Mean Corpuscular Hemoglobin 34.5 pg (27.0-31.2); Mean Corpuscular Volume 116.6 fl (80-94); Mean Platelet Volume 10.5 fl (7.4-10.4); Monocytes # 0.6 K/mm3 (0.1-1.0); Neutrophils # 6.1 K/mm3 (1.8-7.8); Neutrophils % 81.3 % (37.0-80.0); Platelet Count 106 K/mm3 (142-424); Red Blood Count 2.39 M/mm3 (4.60-6.20); White Blood Count 7.5 K/mm3 (4.8-10.8)
[2021-11-17 06:57] LABS: Chloride 109 mmol/L (98-107); Potassium 4.2 mmoL/L (3.5-5.1); Sodium 138 mmol/L (136-145)
--- NOTE | 2021-11-17 06:58 | PC.NURSE ---
pt did not rest well, very anxious at times, vss, iv restarted, bilateral extremity edema, right more than left, pt with coughing spells most of the night and medicated with robitussin x2, 02 at 2 L pnc, no other issues or concerns noted at this time.
[2021-11-17 07:00] LABS: Anion Gap 12.2 mEq/L (5-15); Blood Urea Nitrogen 59 mg/dl (9-20); Calcium 7.8 mg/dl (8.4-10.2); Carbon Dioxide 21 mmol/L (22.0-30.0); Creatinine Clearance Estimated 24 mL/min (50-200); Estimated Glomerular Filt Rate 20 ml/min (>60); GFR (African American) 25 ML/MIN (>60); Glucose 99 mg/dl (74-100)
[2021-11-17 08:00] VITALS: BP 128/67; PULSE 79; PULSE 85; RESP 16; TEMP 37.1; O2SAT 96
--- NOTE | 2021-11-17 08:13 | HMH.ACPN2 ---
<Lauryn Kumar - Last Filed: 11/17/21 08:13> Internal Medicine - PN: Subj *Date: 11/17/21 *Time: 08:13 Interval history: Patient states he is feeling better this morning. He still has a cough and the cough medicine does not seem to be helping. He was up most of the night unable to sleep. He denies any pain. He was able to eat some breakfast. He is anxious to go home. Exam Vital signs and Labs for Last 24 Hours: Temp Pulse Resp BP Pulse Ox 97.7 F 80 18 109/59 L 92 L 11/17/21 03:31 11/17/21 04:00 11/17/21 03:31 11/17/21 03:31 11/17/21 03:31 Laboratory Results - last 24 hr 11/17/21 06:29: WBC 7.5 D, RBC 2.39 L, Hgb 8.2 L, Hct 27.8 L, MCV 116.6 H, MCH 34.5 H, MCHC 29.6 L, RDW 16.0, Plt Count 106 L, MPV 10.5 H, Neut % (Auto) 81.3 H, Lymph % (Auto) 9.4 L, [place] % (Auto) 8.0, Eos % (Auto) 1.1, Baso % (Auto) 0.3, Neut # (Auto) 6.1, Lymph # (Auto) 0.7, [place] # (Auto) 0.6, Eos # (Auto) 0.1, Baso # (Auto) 0.0 11/17/21 06:29: Sodium 138, Potassium 4.2, Chloride 109 H, Carbon Dioxide 21 L, Anion Gap 12.2, BUN 59 H, Creatinine 3.00 H, Estimated Creat Clear 24, Estimated GFR 20 L, Est GFR ( Amer) 25 L, Glucose 99, Calcium 7.8 L I & O for Last 24 hours: Intake & Output 11/14/21 11/15/21 11/16/21 11/17/21 11:59 11:59 11:59 11:59 Intake Total 360 / 360 1170 / 1170 600 / 600 Output Total 0 / 0 400 / 400 Balance 360 / 360 770 / 770 600 / 600 Weight 184 lb 7.372 oz 183 lb 6 oz 188 lb Microbiology Reports for the Last 24 Hours: Microbiology 11/14/21 19:39 Blood Blood Culture - Final Streptococcus pneumoniae 11/14/21 19:39 Blood Blood Culture - Final Streptococcus pneumoniae 11/16/21 18:25 Sputum - Expectorated Sputum Gram Stain - Final - Constitutional no acute distress - *Routine Respiratory Exam Present: decreased breath sounds, CTA bilaterally - *Routine Cardiovascular Exam Present: RRR - *Routine Abdominal Exam Present: soft, normoactive bowel sounds. Absent: tenderness - *Routine Extremities Exam Present: edema (mild LE). Absent: cyanosis, clubbing - *Routine Skin Exam Present: warm. Absent: rash - *Routine Neurological Exam Present: alert, oriented X3 Assessment and Plan (1) Acute on chronic renal failure Status: Acute Qualifiers: Acute renal failure type: unspecified Chronic kidney disease stage: stage 4 (severe) Qualified Code(s): N17.9 - Acute kidney failure, unspecified; N18.4 - Chronic kidney disease, stage 4 (severe) Category: Medical Code(s): N17.9 - Acute kidney failure, unspecified; N18.9 - Chronic kidney disease, unspecified (2) Anemia Status: Acute Qualifiers: Anemia type: unspecified type Qualified Code(s): D64.9 - Anemia, unspecified Category: Medical Code(s): D64.9 - Anemia, unspecified (3) CAP (community acquired pneumonia) Status: Acute Qualifiers: Laterality: left Lung location: lower lobe of lung Qualified Code(s): J18.9 - Pneumonia, unspecified organism Category: Medical Code(s): J18.9 - Pneumonia, unspecified organism (4) Pacemaker Status: Acute Category: Medical Code(s): Z95.0 - Presence of cardiac pacemaker (5) SIRS (systemic inflammatory response syndrome) Status: Acute Category: Medical Code(s): R65.10 - Systemic inflammatory response syndrome (SIRS) of non-infectious origin without acute organ dysfunction (6) Thrombocytopenia Status: Acute Category: Medical Code(s): D69.6 - Thrombocytopenia, unspecified (7) Chronic renal insufficiency, stage V Status: Chronic Category: Medical Code(s): N18.5 - Chronic kidney disease, stage 5 (8) Acute exacerbation of CHF (congestive heart failure) Status: Acute Qualifiers: Heart failure type: unspecified Qualified Code(s): I50.9 - Heart failure, unspecified Category: Medical Code(s): I50.9 - Heart failure, unspecified (9) Bacteremia St
--- NOTE | 2021-11-18 16:00 | HMH.DCSUM ---
General - General Admission date:: 11/14/21 <Alex Patiño - 01/02/22 14:52> 11/14/21 <Lauryn Kumar - 11/18/21 16:05> Discharge date: 11/17/21 <Lauryn Kumar - 11/18/21 16:05> HPI HPI: Mr. Graff is a 81yo white male with history of CKD, CAD, CHF, COPD, HTN, PPM/AICD, Lymphoma, PVD, bilateral renal stents, chronic home oxygen use, and chronic pain. He presented to the [facility] ED yesterday evening via EMS describing a two-day history of hemoptysis following some nosebleeding. He also reported right-sided abdominal pain which began yesterday. He denies any shortness of breath or difficulty breathing, however, his is at the bedside and reports EMS was called due to concerns with increasing dyspnea yesterday. Upon arrival, his WBC was elevated at 24.0. Hemoglobin was 9.9 with Hematocrit of 33.5. BUN was 50 with Creatinine of 3.30 and eGRF of 18. His CXR showed hazy opacities in the lung bases somewhat improved from prior. He was admitted for further evaluation and treatment of likely community acquired pneumonia and acute kidney injury. <Lauryn Kumar - 11/18/21 16:05> Hospital Course Hospital Course: The patient was feeling better by the time of history and physical and actually wanted to go home. He was noticeably hoarse with a congested cough but no respiratory distress. Dr. Patiño advised him to stay for further observation and he was agreeable. He was continued on his home medications and empirically started on Levaquin. He was also continued on gentle IV fluid hydration. By 11/16/2021, he was feeling better. He had required a pain pill for right hip and leg pain during the night, but afterward did sleep well. He had a productive cough but was able to get up and move about his room. His white blood cell count improved, but he had blood cultures that were positive with ID pending. He was continued on the Levaquin and kept for another day pending his blood cultures. The source of infection was not clear. The possibilities included pulmonary or from his urologic stents. A repeat chest x-ray was ordered showing mildly improved basilar airspace opacities. His urine culture showed no growth. His blood cell cultures returned showing Streptococcus pneumoniae which was sensitive to Levaquin. By 11/17/2021, he was anxious to go home and was stable to be discharged on continued Levaquin. He will follow up with Dr. Patiño as well as with his urologist to change out his stents. <Lauryn Kumar - 11/18/21 16:05> Objective Vital signs: Temp Pulse Resp BP Pulse Ox 98.7 F 79 16 128/67 96 11/17/21 08:00 11/17/21 08:00 11/17/21 08:00 11/17/21 08:00 11/17/21 08:00 <Alex Patiño - 01/02/22 14:52> Temp Pulse Resp BP Pulse Ox 98.7 F 79 16 128/67 96 11/17/21 08:00 11/17/21 08:00 11/17/21 08:00 11/17/21 08:00 11/17/21 08:00 <Lauryn Kumar - 11/18/21 16:05> Narrative: - Constitutional no acute distress - *Routine Respiratory Exam Present: decreased breath sounds, CTA bilaterally - *Routine Cardiovascular Exam Present: RRR - *Routine Abdominal Exam Present: soft, normoactive bowel sounds. Absent: tenderness - *Routine Extremities Exam Present: edema (mild LE). Absent: cyanosis, clubbing - *Routine Skin Exam Present: warm. Absent: rash - *Routine Neurological Exam Present: alert, oriented X3 <Lauryn Kumar - 11/18/21 16:05> Results Labs on day of discharge: Preliminary micro results at discharge 11/16/21 18:25 Sputum Culture - Preliminary Sputum - Expectorated Sputum <Lauryn Kumar - 11/18/21 16:05> DS: Diagnosis - Discharge Diagnosis (1) Streptococcal bacteremia Status: Acute (2) Acute on chronic renal failure Status: Acute (3) CAP (community acquired pneumonia) Status: Acute (4) Anemia Status: Acute (5) Pacemaker Status: Acute (6) SIRS (systemic inflammatory response sy
== END 2021-11-17 09:52 | disposition home or self-care (01) | DRG 194 ==
LOC: ER 22:15 → 2ND 22:32
PROVIDERS: Admitting Provider Family Medicine; Emergency Provider Emergency Medicine; PCP Family Medicine; Visit Provider Family Medicine
DX: J18.9 Pneumonia, unspecified organism (principal); N17.9 Acute kidney failure, unspecified; N18.5 Chronic kidney disease, stage 5; R78.81 Bacteremia; I13.2 Hypertensive heart and chronic kidney disease with heart failure and with stage 5 chronic kidney disease, or end stage renal disease; J44.0 Chronic obstructive pulmonary disease with (acute) lower respiratory infection; Z95.0 Presence of cardiac pacemaker; D69.6 Thrombocytopenia, unspecified; Z79.899 Other long term (current) drug therapy; Z95.828 Presence of other vascular implants and grafts; I50.9 Heart failure, unspecified; Z85.72 Personal history of non-Hodgkin lymphomas; I25.10 Atherosclerotic heart disease of native coronary artery without angina pectoris; Z95.1 Presence of aortocoronary bypass graft; Z20.822 Contact with and (suspected) exposure to COVID-19; Z99.81 Dependence on supplemental oxygen; Z96.641 Presence of right artificial hip joint; I25.2 Old myocardial infarction; Z87.891 Personal history of nicotine dependence; I73.9 Peripheral vascular disease, unspecified; Z86.718 Personal history of other venous thrombosis and embolism; D63.1 Anemia in chronic kidney disease; Z79.01 Long term (current) use of anticoagulants; E78.5 Hyperlipidemia, unspecified; Z95.810 Presence of automatic (implantable) cardiac defibrillator
CPT/HCPCS: 36415; 71045; 71046; 80048; 80053; 81001; 82150; 83605; 83690; 83735; 83880; 84484; 85007; 85025; 87040; 87070; 87077; 87086; 87186; 87205; 89220; 93005; 93306; 96365; 96367; 99284; C9803; J1956; U0003; U0005

== ENCOUNTER → 2021-12-21 12:32 | Outpatient (CLI) | payer MEDICARE, BC, SELFPAY ==
[2021-12-21 12:43] LABS: Microscopic, Urine URINE MICROSCOPIC (MICROSCOPIC)
[2021-12-21 13:08] LABS: Basophils % 0.4 % (0.1-2.0); Eosinophils # 0.2 K/mm3 (0.0-0.4); Eosinophils % 2.7 % (0.1-12.0); Hematocrit 29.4 % (42.0-52.0); Hemoglobin 8.7 g/dL (14.1-18.0); Lymphocytes # 1.6 K/mm3 (0.7-4.5); Lymphocytes % 22.3 % (10-50); Mean Corpuscular HGB Conc 29.4 g/dL (31.8-35.4); Mean Corpuscular Hemoglobin 34.4 pg (27.0-31.2); Mean Corpuscular Volume 116.7 fl (80-94); Mean Platelet Volume 10.8 fl (7.4-10.4); Monocytes # 1.3 K/mm3 (0.1-1.0); Monocytes % 18.2 % (1.7-9.3); Neutrophils # 3.9 K/mm3 (1.8-7.8); Neutrophils % 56.4 % (37.0-80.0); Platelet Count 124 K/mm3 (142-424); Red Blood Count 2.52 M/mm3 (4.60-6.20); Red Cell Distribution Width 16.5 % (11.5-17.5); White Blood Count 6.9 K/mm3 (4.8-10.8)
[2021-12-21 13:09] LABS: Blood, Urine 3+ (Negative); Glucose,Urine (UA) Negative (Negative); Ketones,Urine 1+ (Negative); Leukocyte Esterase,Urine 2+ (Negative); Nitrate,Urine POSITIVE (Negative); PH,Urine 6.5 (5.0-8.5); Protein,Urine 3+ (Negative)
[2021-12-21 13:37] LABS: Bilirubin,Urine 2+ (Negative)
[2021-12-21 13:42] LABS: Bacteria,Urine 2+ /lpf; RBC,Urine TNTC #/hpf (0-3); Squamous Epithelial Cell,Urine Occasional #/hpf (0-5); WBC,Urine 20-50 #/hpf (0-3)
[2021-12-21 13:43] LABS: Creatinine,Urine Random 75 mg/dL (Not Estab.)
[2021-12-21 13:44] LABS: Appearance,Urine Cloudy (Clear); Color,Urine Red (Yellow)
[2021-12-21 13:52] LABS: Albumin Level 3.5 g/dl (3.5-5.0); Blood Urea Nitrogen 39 mg/dl (9-20); Calcium 8.6 mg/dl (8.4-10.2); Carbon Dioxide 22 mmol/L (22.0-30.0); Chloride 110 mmol/L (98-107); Estimated Glomerular Filt Rate 25 ml/min (>60); GFR (African American) 30 ML/MIN (>60); Glucose 93 mg/dl (74-100); Sodium 141 mmol/L (136-145)
== END ==
PROVIDERS: PCP Family Medicine; Visit Provider Student in an Organized Health Care Education/Training Program
DX: N18.4 Chronic kidney disease, stage 4 (severe) (principal); R82.90 Unspecified abnormal findings in urine
CPT/HCPCS: 36415; 80069; 81001; 82570; 84155; 85025; 87086

== ENCOUNTER → 2021-12-30 16:16 | Outpatient (CLI) | payer MEDICARE, BC, SELFPAY ==
--- NOTE | 2021-12-30 16:18 | CA_ITS ---
FINAL REPORT TECHNIQUE: Color Doppler, duplex Doppler and compression sonography of the right lower extremity venous system was performed. CLINICAL HISTORY: RLE PAIN AND EDEMA X 1 WEEK,PT QUIT TAKING ELIQUS 1 WEEK AGO AND STARTED ON BABY ASA FINDINGS: There is no evidence of deep venous thrombosis from the level of the groin to the calf. The veins are patent and compressible. IMPRESSION: No evidence of deep venous thrombosis right lower extremity. Reviewed, Interpreted and Dictated by Raimundo Mosher III, MD Transcribed by Shani Flowers Authenticated by Raimundo Mosher III, MD on 12/30/2021 04:59:08 PM [facility]
== END ==
PROVIDERS: PCP Family Medicine; Visit Provider Family Medicine
DX: M79.604 Pain in right leg (principal)
CPT/HCPCS: 93971

== ENCOUNTER 2022-01-17 23:47 | Inpatient (IN) | payer MEDICARE, BC, SELFPAY ==
[2022-01-17 23:43] VITALS: BP 179/89; PULSE 112; RESP 38; TEMP 36.2; O2SAT 87; BMI 27.5
--- NOTE | 2022-01-17 23:55 | ECG_ITS ---
APPROVED REPORT Exam: Resting ECG HR:124 bpm ECG Measurements Heart Rate 124 AXES QRSd 146 QRS -19 QT 344 T 199 QTc 417 Conclusion ATRIAL FIBRILLATION WITH RAPID VENTRICULAR RESPONSE WITH ABERRANT CONDUCTION OR VENTRICULAR PREMATURE COMPLEXES INTRAVENTRICULAR CONDUCTION DELAY [130+ ms QRS DURATION] ABNORMAL ECG UNCONFIRMED REPORT Electronically signed by : Ryan Aviles MD 01/21/2022 16:10:32
[2022-01-18] VITALS (12 sets, daily range): BP systolic 109–159; BP diastolic 60–110; PULSE 60–114; RESP 16–34; TEMP 36.3–36.6; O2SAT 91–96; BMI 27.3; BMI 27.2
--- NOTE | 2022-01-18 00:02 | XR_ITS ---
PROCEDURE INFORMATION: Exam: XR Chest Exam date and time: 01/18/2022 12:02 AM Age: 81 years old Clinical indication: Shortness of breath; Prior surgery; Surgery type: Pacemaker x1 year, open heart x10 years TECHNIQUE: Imaging protocol: XR of the chest. Views: 1 view. COMPARISON: CR XR CHEST PORTABLE 11/16/2021 10:19 AM FINDINGS: Tubes, catheters and devices: Single lead left-sided cardiac pacemaker unchanged. Lungs: Extensive bilateral airspace disease which could reflect edema/pneumonia. Pleural spaces: Small bilateral pleural effusions. Heart/Mediastinum: Cardiomegaly. Bones/joints: Midline sternotomy. IMPRESSION: Extensive edema/pneumonia.
[2022-01-18 00:19] LABS: ABG Base Excess -7.4 mmol/L (-2.4-2.3); ABG HCO3 18.8 mmhg (22.0-26.0); ABG Oxygen Saturation 90 % (90-100); ABG PCO2 37.7 mmhg (35.0-45.0); ABG PH 7.32 mmol/L (7.35-7.45); ABG PO2 64.9 mmhg (80-100); ABG TCO2 19.9 mmhg (23-27)
[2022-01-18 00:20] LABS: Allen's Test Acceptable; Source Right Radial
--- NOTE | 2022-01-18 00:21 | HMH.EDSOB ---
ED Disposition Clinical Impression: DYLLAN (acute kidney injury) CHF (congestive heart failure) Qualifiers: Heart failure type: unspecified Heart failure chronicity: acute on chronic Qualified Code(s): I50.9 - Heart failure, unspecified Disposition: Admitted As Inpatient Condition on Discharge: Serious Referrals: Alex Patiño MD [Primary Care Provider] - - Critical Care Critical Care Time: No Attestation: On 01/17/22, the high probability of a clinically significant, sudden or life threatening deterioration of the following system(s) required my full and direct attention, intervention and personal management. The time I documented below is in addition to time spent performing reported procedures but includes the following listed in this critical care notation. Medical Decision Making - Medical Records Medical records reviewed: Yes: I reviewed the patient's medical records. - Alex Inquiry Pt receiving controlled substance: No Vital Signs: 01/17/22 23:43 01/18/22 00:30 01/18/22 01:00 Temperature 97.1 F L Temperature Source Axillary Pulse Rate 114 H 109 H Pulse Rate [Right Radial] 112 H Respiratory Rate 38 H 30 H 34 H Blood Pressure 159/110 H 151/98 H Blood Pressure [Right Arm] 179/89 H Blood Pressure Mean [Right Arm] 119 Blood Pressure Source [Right Arm] Automatic Cuff 02 Sat by Pulse Oximetry 87 L 91 L 94 L Oxygen Delivery Method Nasal Cannula Venturi Mask Vapotherm Oxygen Flow Rate (LPM) 4 9 9 01/18/22 01:04 01/18/22 01:07 Temperature Temperature Source Pulse Rate 95 H Pulse Rate [Right Radial] Respiratory Rate 26 H Blood Pressure Blood Pressure [Right Arm] Blood Pressure Mean [Right Arm] Blood Pressure Source [Right Arm] 02 Sat by Pulse Oximetry 96 Oxygen Delivery Method Venturi Mask Oxygen Flow Rate (LPM) 9 - Lab Data Lab results reviewed: Yes: I reviewed the patient's lab results. Lab Results 01/18/22 00:01: Sodium 132 L, Potassium 4.3, Chloride 101, Carbon Dioxide 22, Anion Gap 13.3, BUN 35 H, Creatinine 3.00 H, Estimated Creat Clear 23, Estimated GFR 20 L, Est GFR ( Amer) 25 L, Glucose 149 H, Calcium 7.9 L, Total Bilirubin 0.7, AST 32, ALT 21, Alkaline Phosphatase 118, C-Reactive Protein 20.0 H, Total Protein 6.2 L, Albumin 3.8, Globulin 2.4, Albumin/Globulin Ratio 1.6 01/18/22 00:01: WBC 10.7, RBC 3.19 L, Hgb 10.7 L, Hct 35.6 L, MCV 111.5 H, MCH 33.4 H, MCHC 30.0 L, RDW 17.9 H, Plt Count 114 L, MPV 10.1, Neut % (Auto) 65.0, Lymph % (Auto) 23.0, [place] % (Auto) 10.4 H, Eos % (Auto) 0.8, Baso % (Auto) 0.8, Neut # (Auto) 7.0, Lymph # (Auto) 2.5, [place] # (Auto) 1.1 H, Eos # (Auto) 0.1, Baso # (Auto) 0.1, ESR 16 01/18/22 00:01: Troponin I 0.02, Procalcitonin 0.067 01/18/22 00:01: Magnesium 1.7, NT-Pro-B Natriuret Pep 40492 H 01/18/22 00:03: Specimen Source Right radial, O2 % 9lpm, ABG pH 7.32 L, ABG pCO2 37.7, ABG pO2 64.9 L, ABG HCO3 18.8 L, ABG Total CO2 19.9 L, ABG O2 Saturation 90, ABG Base Excess -7.4 L, Jones Test Acceptable 01/18/22 01:00: Urine Color Brown, Urine Appearance Sl cloudy, Urine pH 6.0, Ur Specific [place] 1.025, Urine Protein 3+, Urine Glucose (UA) Negative, Urine Ketones Negative, Urine Blood 3+, Urine Nitrate Negative, Urine Bilirubin Negative, Urine Urobilinogen 0.2, Ur Leukocyte Esterase Trace Result diagrams: 01/18/22 00:01 01/18/22 00:01 Orders (Tests/Meds): ED MEDICATIONS Discontinued Medications Generic Name Dose Route Start Last Admin Trade Name Freq PRN Reason Stop Dose Admin Albuterol/Ipratropium 3 ml 01/18/22 00:49 01/18/22 01:03 Ipratropium/Albuterol 3 Ml Neb IH 01/18/22 00:50 3 ml ONCE ONE Administration Furosemide 40 mg 01/18/22 00:02 01/18/22 00:02 Furosemide 40mg/4ml Vial IV 01/18/22 00:03 40 mg ONCE ONE Administration ORDERS Category Date Time Status Rapid PCR Covid and Flu A/B Stat Lab 01/18/22 01:01 Received Troponin I Q3H Lab 01/18/22 03:15 Ordered Troponin I
[2022-01-18 00:27] LABS: Basophils # 0.1 K/mm3 (0-0.2); Basophils % 0.8 % (0.1-2.0); Eosinophils # 0.1 K/mm3 (0.0-0.4); Eosinophils % 0.8 % (0.1-12.0); Hematocrit 35.6 % (42.0-52.0); Hemoglobin 10.7 g/dL (14.1-18.0); Lymphocytes # 2.5 K/mm3 (0.7-4.5); Mean Corpuscular Hemoglobin 33.4 pg (27.0-31.2); Mean Corpuscular Volume 111.5 fl (80-94); Mean Platelet Volume 10.1 fl (7.4-10.4); Monocytes # 1.1 K/mm3 (0.1-1.0); Monocytes % 10.4 % (1.7-9.3); Platelet Count 114 K/mm3 (142-424); Red Blood Count 3.19 M/mm3 (4.60-6.20); Red Cell Distribution Width 17.9 % (11.5-17.5); White Blood Count 10.7 K/mm3 (4.8-10.8)
[2022-01-18 00:31] LABS: Chloride 101 mmol/L (98-107)
[2022-01-18 00:32] LABS: Potassium 4.3 mmoL/L (3.5-5.1); Sodium 132 mmol/L (136-145)
[2022-01-18 00:34] LABS: Alanine Aminotransferase 21 U/L (12-78); Aspartate Amino Transferase 32 U/L (17-59); Blood Urea Nitrogen 35 mg/dl (9-20); Creatinine Clearance Estimated 23 mL/min (50-200); Estimated Glomerular Filt Rate 20 ml/min (>60); GFR (African American) 25 ML/MIN (>60)
[2022-01-18 00:35] LABS: Albumin Level 3.8 g/dl (3.5-5.0); Albumin/Globulin Ratio 1.6 (1.1-1.8); Alkaline Phosphatase 118 U/L (38-126); Anion Gap 13.3 mEq/L (5-15); Bilirubin,Total 0.7 mg/dl (0.2-1.3); Calcium 7.9 mg/dl (8.4-10.2); Carbon Dioxide 22 mmol/L (22.0-30.0); Globulin 2.4 g/dL (1.3-3.2); Glucose 149 mg/dl (74-100); Total Protein,Serum 6.2 g/dl (6.3-8.2)
[2022-01-18 00:39] LABS: Magnesium 1.7 mg/dl (1.6-2.3)
[2022-01-18 00:47] LABS: Troponin I 0.02 ng/ml (0.00-0.034)
[2022-01-18 00:49] LABS: NT Pro Brain Natriuretic Pep. 21200 pg/mL (0-450)
[2022-01-18 00:51] LABS: Procalcitonin 0.067 ng/mL (0.0-2.0)
[2022-01-18 01:05] LABS: Erythrocyte Sedimentation Rate 16 mm/hr (0-20)
[2022-01-18 01:12] LABS: Microscopic, Urine URINE MICROSCOPIC (MICROSCOPIC)
[2022-01-18 01:16] LABS: Coronavirus 19, PCR Not Detected (NotDetected); Influenza A, PCR Not Detected (NotDetected); Influenza B, PCR Not Detected (NotDetected)
--- NOTE | 2022-01-18 01:24 | PC.NURSE ---
pt right footis purple and cold to the touch attempted to find with Doppler assist. no pulse noted upon palpation or Doppler in the right foot
--- NOTE | 2022-01-18 01:25 | PC.NURSE ---
notified of no pulse found in right foot. no new orders at this time
[2022-01-18 01:29] LABS: Appearance,Urine SL CLOUDY (Clear); Blood, Urine 3+ (Negative); Color,Urine BROWN (Yellow); Glucose,Urine (UA) Negative (Negative); Ketones,Urine Negative (Negative); Leukocyte Esterase,Urine TRACE (Negative); Nitrate,Urine Negative (Negative); Protein,Urine 3+ (Negative); Specific Gravity, Urine 1.025 (1.005-1.030); Urobilinogen,Urine 0.2 EU/dl (0.2)
[2022-01-18 01:30] LABS: Bilirubin,Urine Negative (Negative)
--- NOTE | 2022-01-18 01:37 | PC.NURSE ---
Dr Bria valencia for Dr. Melo
[2022-01-18 01:42] LABS: Amorphous Sediment,Urine 1+ /lpf; Bacteria,Urine 2+ /lpf; Mucus,Urine 1+ /lpf; RBC,Urine 20-50 #/hpf (0-3)
--- NOTE | 2022-01-18 01:43 | PC.NURSE ---
Dr. Melo on phone with Dr. Fraser
--- NOTE | 2022-01-18 02:56 | PC.NURSE ---
patient up to floor via stretcher @ this time.
[2022-01-18 03:38] LABS: Troponin I 0.05 ng/ml (0.00-0.034)
--- NOTE | 2022-01-18 04:58 | PC.NURSE ---
Pt is A/O x4 has been cooperative and pleasant this shift. Pt is currently on 5L NC with O2 sats 88-90%. Pt's king is draining dark tea color urine. Pt reports no pain. Pt voiced x1 of nausea, admin med per MAR with relief. Pt's right foot is purple in color and cool to the touch. Used Doppler with no success. MD in ER was aware before admitting to floor. Pt states it has been that way for awhile.
[2022-01-18 06:44] LABS: Basophils % 0.5 % (0.1-2.0); Eosinophils % 0.3 % (0.1-12.0); Hematocrit 34.6 % (42.0-52.0); Hemoglobin 10.7 g/dL (14.1-18.0); Lymphocytes # 0.8 K/mm3 (0.7-4.5); Lymphocytes % 10.5 % (10-50); Mean Corpuscular HGB Conc 30.8 g/dL (31.8-35.4); Mean Corpuscular Hemoglobin 33.6 pg (27.0-31.2); Mean Corpuscular Volume 109.2 fl (80-94); Monocytes % 13.6 % (1.7-9.3); Neutrophils # 5.5 K/mm3 (1.8-7.8); Platelet Count 91 K/mm3 (142-424); Red Blood Count 3.17 M/mm3 (4.60-6.20); Red Cell Distribution Width 18.1 % (11.5-17.5); White Blood Count 7.4 K/mm3 (4.8-10.8)
[2022-01-18 06:54] LABS: Anion Gap 11.7 mEq/L (5-15); Blood Urea Nitrogen 39 mg/dl (9-20); Calcium 8.7 mg/dl (8.4-10.2); Carbon Dioxide 25 mmol/L (22.0-30.0); Chloride 105 mmol/L (98-107); Creatinine Clearance Estimated 24 mL/min (50-200); Estimated Glomerular Filt Rate 21 ml/min (>60); GFR (African American) 26 ML/MIN (>60); Glucose 107 mg/dl (74-100); Potassium 4.7 mmoL/L (3.5-5.1); Sodium 137 mmol/L (136-145)
[2022-01-18 06:56] LABS: Magnesium 1.5 mg/dl (1.6-2.3)
[2022-01-18 07:04] LABS: Troponin I 0.09 ng/ml (0.00-0.034)
--- NOTE | 2022-01-18 07:43 | P.CONPHA_ITS ---
[facility] VTE Monitoring - Patient Demographics Admission date: 01/18/22 Report Date: 01/18/22 Time: 07:43 Allergies/Adverse Reactions: Patient Allergies latex Allergy (Verified 09/15/20 10:05) kidney dye Allergy (Uncoded 03/18/18 22:52) Height: 1.73 m Weight: 81.647 kg Patient Problems: Current Active Problems CHF (congestive heart failure) (Chronic) DYLLAN (acute kidney injury) (Acute) - VTE Risk Labs: VTE Related Lab Results Hgb 10.7 g/dL (14.1-18.0) L 01/18/22 06:16 Hct 34.6 % (42.0-52.0) L 01/18/22 06:16 Plt Count 91 K/mm3 (142-424) L 01/18/22 06:16 BUN 39 mg/dl (9-20) H 01/18/22 06:16 Creatinine 2.90 mg/dl (0.66-1.25) H 01/18/22 06:16 Estimated Creat Clear 24 mL/min (50-200) 01/18/22 06:16 Was VTE Risk Assessment Performed: Yes VTE Score: 4 VTE Risk Level: Low Risk Clinical Trial Participant: No - Prophylaxis VTE Prophylaxis Ordered?: Yes Types of VTE Prophylaxis: TEDS Knee High
--- NOTE | 2022-01-18 07:48 | HMH.PHAINT ---
HOME MEDICATION LIST VERIFIED USING LIST FROM [facility]
--- NOTE | 2022-01-18 09:52 | HMH.HP ---
*Admission Date: 01/18/22 <Starla Salcedo - 01/18/22 10:21> *Chief complaint: Shortness of breath <Starla Salcedo - 01/18/22 10:21> *History of present illness: Mr. Graff is a 81-year-old male patient with a history of bilateral renal stents followed by Dr. Mcneal, chronic kidney disease, degenerative disc disease, coronary artery disease, CHF, COPD, hypertension, history of lymphoma, and peripheral vascular disease who presented to [facility] emergency room extremely short of breath. He denies having chest pain at this time or palpitations or diaphoresis. He states the episode was preceded by extreme GERD after eating a heavy meal for dinner. Is improved after taking Tums. Then when sitting down he developed extreme shortness of breath which progressively worsened. Again he denied having any chest pain at this time. He had oxygen at home and actually had his turn it up to 5 L/min but continued to be short of breath and thus presented to the emergency room. He denies having any cough or fever. Patient was at [facility] last week for persistent hematuria which was felt to be due to his stents. He had a procedure per Dr. Mcneal and the bleeding did cease. During this time he was seen by his college service officer who discontinued his aspirin, Lasix and Entresto. He did have an episode of atrial fib during this visit which resolved by the time of discharge. He was discharged to home on 01/13/2022 and had several good days. He was able to go shopping with his and was eating as usual. He then had the episode of GERD followed by the shortness of breath which brought him to the emergency room. Eliquis was also discontinued. He was to Follow-up with his online retailer, urologist and college service officer this week. With evaluation in the emergency room chest x-ray revealed extensive Edema/pneumonia. Laboratory data revealed white blood cell count of 10,700 with a hemoglobin of 10.7 and hematocrit of 35.6. Chemistry showed sodium of 132 and potassium of 4.3. BUN was 35 and creatinine of 3 which improved this morning to 39/2.9. Troponin I's have gone from 0.02-0 0.05-0.09. BNP was 21,200. ABGs in the ER showed a pH of 7.32 PCO2 37.7 PO2 of 64.9 and a bicarb of 18.8. With exam he was afebrile and blood pressure was elevated at 179/89. He was started on a nasal cannula and changed to Venturi mask and then Vapotherm. He was given a DuoNeb treatment and 40 mg of Lasix IV. After this his breathing did improve and he is currently on O2 at 4 L/min per nasal cannula with good O2 sats. This a.m. patient states he is feeling much better. He denies chest pain and shortness of breath although he is continues with oxygen. He was able to eat breakfast which consisted of orange juice, reddy, and coffee without any additional heartburn. Blood pressure has improved to 143/84 with O2 sats at 94% on 4L/min of nasal oxygen. <Starla Salcedo 01/18/22 10:21> [facility] History Medical History: Reports:: Atherosclerotic Heart Disease, Cancer, Congestive Heart Failure, Chronic Obstructive Pulmonary Disease (COPD), Coronary Artery Disease, Deep Vein Thrombosis, Hyperlipidemia, Hypertension, Internal Pacemaker, Kidney Stones, Myocardial Infarction, Peripheral Artery Disease, Peripheral Vascular Disease, Renal Disease, Renal Insufficiency Denies:: Diabetes Mellitus Type 1, Diabetes Mellitus Type 2, Home Oxygen, MRSA <Starla Salcedo 01/18/22 10:21> *Have you ever received a pneumonia vaccine?: No <Starla Salcedo 01/18/22 10:21> *Have you received a flu vaccine this season?: No <Starla Salcedo 01/18/22 10:21> Other Medical History: Reports: Anemia, Arthritis, Chemotherapy, Radiation Therapy, Other <Starla Salcedo 01/18/22 10:21> Laterality Cases: Right: Total Hip Replacement <Starla Salcedo 01/18/22 10:21> Other Surgeries: Yes: CABG, Cancer Surgery, Cardiac Catheterization, Cardiac Surgery, Colonoscopy, Coronary Stent, Hernia Repair, Open Heart Surgery, Pacemake
--- NOTE | 2022-01-18 10:54 | PC.NURSE ---
Called Dr Fraser's office to see if he still wants pt connected to fluids or not. I am waiting to be contacted back.
--- NOTE | 2022-01-18 12:32 | PC.NURSE ---
Pt agreed to wear TEDS, so he is wearing them bilaterally
--- NOTE | 2022-01-18 16:12 | PC.NURSE ---
Received order for immodium prn per jan.
[2022-01-19] VITALS: BP 110/57; PULSE 80; PULSE 88; RESP 19; TEMP 36.6; O2SAT 97
[2022-01-19 01:53] VITALS: BMI 26.9
[2022-01-19 04:00] VITALS: PULSE 80
--- NOTE | 2022-01-19 06:40 | PC.NURSE ---
PATIENT HAD COMPLAINTS OF HEADACHE 2X THRU THIS RN SHIFT. O2 HAS BEEN WEANED TO 3L NC AT 97%. NO OTHER CONCERNS AT THIS TIME.
[2022-01-19 06:56] LABS: Anion Gap 10.8 mEq/L (5-15); Blood Urea Nitrogen 42 mg/dl (9-20); Calcium 8.2 mg/dl (8.4-10.2); Carbon Dioxide 25 mmol/L (22.0-30.0); Chloride 105 mmol/L (98-107); Creatinine Clearance Estimated 25 mL/min (50-200); Estimated Glomerular Filt Rate 23 ml/min (>60); GFR (African American) 28 ML/MIN (>60); Glucose 94 mg/dl (74-100); Potassium 3.8 mmoL/L (3.5-5.1); Sodium 137 mmol/L (136-145)
--- NOTE | 2022-01-19 07:45 | DIET.NUTRFU ---
Upon visit yesterday he c/o diarrhea x5 episodes. Imodium was started.
[2022-01-19 08:00] VITALS: PULSE 90
--- NOTE | 2022-01-19 08:08 | HMH.ACPN2 ---
<Lauryn Kumar - Last Filed: 01/19/22 08:08> Internal Medicine - PN: Subj *Date: 01/19/22 *Time: 08:08 Interval history: Patient states he is feeling better today. He denies any pain and states the shortness of breath has improved. He had a pain pill last night which helped with the pain in his foot and he was able to sleep a little bit. He is anxious to go home. Exam Vital signs and Labs for Last 24 Hours: Temp Pulse Resp BP Pulse Ox 97.8 F 80 19 110/57 L 97 01/19/22 00:00 01/19/22 04:00 01/19/22 00:00 01/19/22 00:00 01/19/22 00:00 Laboratory Results - last 24 hr 01/19/22 05:22: Sodium 137, Potassium 3.8, Chloride 105, Carbon Dioxide 25, Anion Gap 10.8, BUN 42 H, Creatinine 2.70 H, Estimated Creat Clear 25, Estimated GFR 23 L, Est GFR ( Amer) 28 L, Glucose 94, Calcium 8.2 L I & O for Last 24 hours: Intake & Output 01/16/22 01/17/22 01/18/22 01/19/22 11:59 11:59 11:59 11:59 Intake Total 420 / 420 600 / 600 Output Total 850 / 850 550 / 550 Balance -430 / -430 50 / 50 Weight 179 lb 14.355 oz 177 lb 6.4 oz Microbiology Reports for the Last 24 Hours: Microbiology 01/18/22 01:00 Urine,Catheterized Urine Culture - Preliminary NO GROWTH AFTER 24 HOURS 01/18/22 01:08 Sputum - Expectorated Sputum Gram Stain - Final - Constitutional no acute distress - *Routine Respiratory Exam Present: crackles (Faint in the bases) - *Routine Cardiovascular Exam Present: irregular rhythm - *Routine Abdominal Exam Present: soft, normoactive bowel sounds. Absent: tenderness - *Routine Extremities Exam Present: edema (Trace bilateral lower extremity edema). Absent: cyanosis, clubbing - *Routine Skin Exam Present: warm. Absent: rash - *Routine Neurological Exam Present: alert, oriented X3 Assessment and Plan (1) Acute exacerbation of CHF (congestive heart failure) Status: Acute Qualifiers: Heart failure type: unspecified Qualified Code(s): I50.9 - Heart failure, unspecified Category: Medical Code(s): I50.9 - Heart failure, unspecified (2) GERD (gastroesophageal reflux disease) Status: Acute Category: Medical Code(s): K21.9 - Gastro-esophageal reflux disease without esophagitis (3) History of renal stent Status: Chronic Category: Surgical (4) PAD (peripheral artery disease) Status: Chronic Category: Medical Code(s): I73.9 - Peripheral vascular disease, unspecified (5) CHF (congestive heart failure) Status: Chronic Qualifiers: Heart failure type: unspecified Heart failure chronicity: acute on chronic Qualified Code(s): I50.9 - Heart failure, unspecified Category: Medical Code(s): I50.9 - Heart failure, unspecified (6) Acute on chronic renal failure Status: Acute Qualifiers: Acute renal failure type: unspecified Chronic kidney disease stage: stage 4 (severe) Qualified Code(s): N17.9 - Acute kidney failure, unspecified; N18.4 - Chronic kidney disease, stage 4 (severe) Category: Medical Code(s): N17.9 - Acute kidney failure, unspecified; N18.9 - Chronic kidney disease, unspecified (7) Anemia Status: Chronic Qualifiers: Anemia type: unspecified type Qualified Code(s): D64.9 - Anemia, unspecified Category: Medical Code(s): D64.9 - Anemia, unspecified (8) CAD (coronary artery disease) Status: Chronic Category: Medical Code(s): I25.10 - Atherosclerotic heart disease of [place] coronary artery without angina pectoris (9) COPD (chronic obstructive pulmonary disease) Status: Chronic Category: Medical Code(s): J44.9 - Chronic obstructive pulmonary disease, unspecified (10) HTN (hypertension) Status: Chronic Category: Medical Code(s): I10 - Essential (primary) hypertension - Assessment and plan all Dx Assessment and Plan for all problems:: Patient did diurese and feels much better. His renal function actually improved. He is stable t
--- NOTE | 2022-01-19 09:59 | HMH.PHAINT ---
Discharge counseling complete. Informed pt of new meds, purpose, how to take, and potential side effects. Pt understood and had no questions or concerns.
--- NOTE | 2022-01-21 10:47 | CARE MANAGER ---
CM called to discuss post discharge status. 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 He states that he has several appointments next week. He has no known needs at this time.
--- NOTE | 2022-01-23 22:41 | HMH.DCSUM ---
General - General Admission date:: 01/18/22 <Alex Patiño - 02/15/22 17:58> 01/18/22 <Lauryn Kumar - 01/23/22 22:44> Discharge date: 01/19/22 <Lauryn Kumar - 01/23/22 22:44> HPI HPI: Mr. Graff is a 81-year-old male patient with a history of bilateral renal stents followed by Dr. Mcneal, chronic kidney disease, degenerative disc disease, coronary artery disease, CHF, COPD, hypertension, history of lymphoma, and peripheral vascular disease who presented to [facility] emergency room extremely short of breath. He denies having chest pain at this time or palpitations or diaphoresis. He states the episode was preceded by extreme GERD after eating a heavy meal for dinner. Is improved after taking Tums. Then when sitting down he developed extreme shortness of breath which progressively worsened. Again he denied having any chest pain at this time. He had oxygen at home and actually had his turn it up to 5 L/min but continued to be short of breath and thus presented to the emergency room. He denies having any cough or fever. Patient [facility] at [facility] for persistent hematuria which was felt to be due to his stents. He had a procedure per Dr. Mcneal and the bleeding did cease. During this time he was seen by his trousseau consultant who discontinued his aspirin, Lasix and Entresto. He did have an episode of atrial fib during this visit which resolved by the time of discharge. He was discharged to home on 01/13/2022 and had several good days. He was able to go shopping with his and was eating as usual. He then had the episode of GERD followed by the shortness of breath which brought him to the emergency room. Eliquis was also discontinued. He was to Follow-up with his rabble furnace tender, urologist and trousseau consultant this week. With evaluation in the emergency room chest x-ray revealed extensive Edema/pneumonia. Laboratory data revealed white blood cell count of 10,700 with a hemoglobin of 10.7 and hematocrit of 35.6. Chemistry showed sodium of 132 and potassium of 4.3. BUN was 35 and creatinine of 3 which improved this morning to 39/2.9. Troponin I's have gone from 0.02-0 0.05-0.09. BNP was 21,200. ABGs in the ER showed a pH of 7.32 PCO2 37.7 PO2 of 64.9 and a bicarb of 18.8. With exam he was afebrile and blood pressure was elevated at 179/89. He was started on a nasal cannula and changed to Venturi mask and then Vapotherm. He was given a DuoNeb treatment and 40 mg of Lasix IV. After this his breathing did improve and he is currently on O2 at 4 L/min per nasal cannula with good O2 sats. This a.m. patient states he is feeling much better. He denies chest pain and shortness of breath although he is continues with oxygen. He was able to eat breakfast which consisted of orange juice, reddy, and coffee without any additional heartburn. Blood pressure has improved to 143/84 with O2 sats at 94% on 4L/min of nasal oxygen. <Lauryn Kumar - 01/23/22 22:44> Hospital Course Hospital Course: The patient was admitted and started on Lasix and oxygen. By 01/19/2022, he was feeling much better. He diuresed well and denied any shortness of breath. He had a pain pill during the night which helped with pain in his foot and he was able to rest. He wanted to go home. His renal function improved and it was felt he could be discharged home and resume his maintenance dose of Lasix. He will follow-up with cardiology and nephrology in a week. <Lauryn Kumar - 01/23/22 22:44> Objective Vital signs: Temp Pulse Resp BP Pulse Ox 97.8 F 90 19 110/57 L 97 01/19/22 00:00 01/19/22 08:00 01/19/22 00:00 01/19/22 00:00 01/19/22 00:00 <Alex Patiño - 02/15/22 17:58> Temp Pulse Resp BP Pulse Ox 97.8 F 90 19 110/57 L 97 01/19/22 00:00 01/19/22 08:00 01/19/22 00:00 01/19/22 00:00 01/19/22 00:00 <Lauryn Kumar - 01/23/22 22:44> Narrative: - Constitutional
== END 2022-01-19 10:40 | disposition home or self-care (01) | DRG 291 ==
LOC: ER 01-18 00:35 → 2ND 01-18 01:55
PROVIDERS: Admitting Provider Family Medicine; Emergency Provider Emergency Medicine; PCP Family Medicine; Visit Provider Family Medicine
DX: I13.0 Hypertensive heart and chronic kidney disease with heart failure and stage 1 through stage 4 chronic kidney disease, or unspecified chronic kidney disease (principal); I50.21 Acute systolic (congestive) heart failure; N17.9 Acute kidney failure, unspecified; N18.9 Chronic kidney disease, unspecified; J44.9 Chronic obstructive pulmonary disease, unspecified; I25.10 Atherosclerotic heart disease of native coronary artery without angina pectoris; Z86.718 Personal history of other venous thrombosis and embolism; E78.5 Hyperlipidemia, unspecified; I25.2 Old myocardial infarction; I73.9 Peripheral vascular disease, unspecified; Z87.891 Personal history of nicotine dependence; Z96.641 Presence of right artificial hip joint; Z95.5 Presence of coronary angioplasty implant and graft; Z85.72 Personal history of non-Hodgkin lymphomas; R31.9 Hematuria, unspecified; D63.1 Anemia in chronic kidney disease; Z85.828 Personal history of other malignant neoplasm of skin; K21.9 Gastro-esophageal reflux disease without esophagitis; Z95.0 Presence of cardiac pacemaker; M19.90 Unspecified osteoarthritis, unspecified site; Z99.81 Dependence on supplemental oxygen
CPT/HCPCS: 36415; 51702; 71045; 80048; 80053; 81001; 82803; 83735; 83880; 84145; 84484; 85025; 85651; 86140; 87040; 87070; 87086; 87205; 93005; 94760; 96375; 99285; C9803; J2405; U0003; U0005

== ENCOUNTER → 2022-01-24 11:40 | Outpatient (CLI) | payer MEDICARE, BC, SELFPAY ==
[2022-01-24 11:50] LABS: Microscopic, Urine URINE MICROSCOPIC (MICROSCOPIC)
[2022-01-24 12:17] LABS: Basophils # 0.1 K/mm3 (0-0.2); Basophils % 0.7 % (0.1-2.0); Eosinophils # 0.1 K/mm3 (0.0-0.4); Eosinophils % 1.5 % (0.1-12.0); Hematocrit 33.5 % (42.0-52.0); Lymphocytes # 0.9 K/mm3 (0.7-4.5); Lymphocytes % 12.3 % (10-50); Mean Corpuscular Volume 113.2 fl (80-94); Mean Platelet Volume 10.1 fl (7.4-10.4); Monocytes # 0.9 K/mm3 (0.1-1.0); Monocytes % 11.6 % (1.7-9.3); Neutrophils # 5.7 K/mm3 (1.8-7.8); Neutrophils % 73.9 % (37.0-80.0); Platelet Count 120 K/mm3 (142-424); Red Blood Count 2.96 M/mm3 (4.60-6.20); White Blood Count 7.6 K/mm3 (4.8-10.8)
[2022-01-24 12:30] LABS: Creatinine,Urine Random 108 mg/dL (Not Estab.)
[2022-01-24 12:48] LABS: Appearance,Urine CLEAR (Clear); Bilirubin,Urine Negative (Negative); Blood, Urine 3+ (Negative); Color,Urine YELLOW (Yellow); Glucose,Urine (UA) Negative (Negative); Ketones,Urine Negative (Negative); Leukocyte Esterase,Urine Negative (Negative); Nitrate,Urine Negative (Negative); Protein,Urine 3+ (Negative); Specific Gravity, Urine 1.025 (1.005-1.030); Urobilinogen,Urine 0.2 EU/dl (0.2)
[2022-01-24 12:54] LABS: Squamous Epithelial Cell,Urine Occasional #/hpf (0-5); WBC,Urine Occasional #/hpf (0-3)
[2022-01-24 13:32] LABS: Chloride 102 mmol/L (98-107); Potassium 4.3 mmoL/L (3.5-5.1); Sodium 136 mmol/L (136-145)
[2022-01-24 13:33] LABS: Albumin Level 3.5 g/dl (3.5-5.0)
[2022-01-24 13:35] LABS: Anion Gap 12.3 mEq/L (5-15); Blood Urea Nitrogen 36 mg/dl (9-20); Carbon Dioxide 26 mmol/L (22.0-30.0); Estimated Glomerular Filt Rate 26 ml/min (>60); GFR (African American) 32 ML/MIN (>60)
[2022-01-24 13:36] LABS: Calcium 7.8 mg/dl (8.4-10.2); Glucose 94 mg/dl (74-100); Phosphorous 3.7 mg/dl (2.5-4.5)
== END ==
PROVIDERS: Visit Provider Student in an Organized Health Care Education/Training Program
DX: N18.4 Chronic kidney disease, stage 4 (severe) (principal)
CPT/HCPCS: 36415; 80069; 81001; 82570; 84155; 85025

== ENCOUNTER → 2022-02-22 12:07 | Outpatient (CLI) | payer MEDICARE, BC, SELFPAY ==
[2022-02-22 12:22] LABS: Microscopic, Urine URINE MICROSCOPIC (MICROSCOPIC)
[2022-02-22 13:03] LABS: Basophils % 0.2 % (0.1-2.0); Eosinophils # 0.1 K/mm3 (0.0-0.4); Eosinophils % 1.3 % (0.1-12.0); Hematocrit 32.6 % (42.0-52.0); Lymphocytes # 1.2 K/mm3 (0.7-4.5); Lymphocytes % 17.1 % (10-50); Mean Corpuscular HGB Conc 30.6 g/dL (31.8-35.4); Mean Corpuscular Hemoglobin 34.7 pg (27.0-31.2); Mean Corpuscular Volume 113.2 fl (80-94); Mean Platelet Volume 9.9 fl (7.4-10.4); Monocytes # 1.1 K/mm3 (0.1-1.0); Monocytes % 14.6 % (1.7-9.3); Neutrophils # 4.8 K/mm3 (1.8-7.8); Neutrophils % 66.8 % (37.0-80.0); Platelet Count 121 K/mm3 (142-424); Red Blood Count 2.88 M/mm3 (4.60-6.20); Red Cell Distribution Width 17.5 % (11.5-17.5); White Blood Count 7.1 K/mm3 (4.8-10.8)
[2022-02-22 13:06] LABS: Appearance,Urine CLEAR (Clear); Bilirubin,Urine Negative (Negative); Blood, Urine 3+ (Negative); Color,Urine YELLOW (Yellow); Glucose,Urine (UA) Negative (Negative); Ketones,Urine Negative (Negative); Leukocyte Esterase,Urine TRACE (Negative); Nitrate,Urine Negative (Negative); Protein,Urine 1+ (Negative); Specific Gravity, Urine 1.015 (1.005-1.030); Urobilinogen,Urine 0.2 EU/dl (0.2)
[2022-02-22 13:18] LABS: Albumin Level 3.5 g/dl (3.5-5.0); Anion Gap 10.9 mEq/L (5-15); Blood Urea Nitrogen 49 mg/dl (9-20); Calcium 8.2 mg/dl (8.4-10.2); Carbon Dioxide 25 mmol/L (22.0-30.0); Chloride 107 mmol/L (98-107); Estimated Glomerular Filt Rate 22 ml/min (>60); GFR (African American) 27 ML/MIN (>60); Glucose 99 mg/dl (74-100); Phosphorous 4.8 mg/dl (2.5-4.5); Potassium 4.9 mmoL/L (3.5-5.1); Sodium 138 mmol/L (136-145)
[2022-02-22 13:27] LABS: Creatinine,Urine Random 69 mg/dL (Not Estab.)
== END ==
PROVIDERS: Visit Provider Student in an Organized Health Care Education/Training Program
DX: N18.4 Chronic kidney disease, stage 4 (severe) (principal)
CPT/HCPCS: 36415; 80069; 81001; 82570; 84155; 85025

== ENCOUNTER → 2022-04-05 11:10 | Outpatient (CLI) | payer MEDICARE, BC, SELFPAY ==
--- NOTE | 2022-04-05 11:15 | XR_ITS ---
FINAL REPORT CLINICAL HISTORY: CHEST PAIN, pt. feels like something is hung in esophagus mid chest COMPARISON: January 18, 2022 FINDINGS: Two views of the chest were obtained. The patient is status post median sternotomy. There is a left subclavian ICD. The heart size and pulmonary vascularity are within normal limits. The mediastinum is normal. There is mild pulmonary scarring. There is improved aeration of the lungs since the prior exam. There is no pneumothorax. The bony thorax is intact. IMPRESSION: Mild pulmonary scarring. Improved aeration of the lungs. Reviewed, Interpreted and Dictated by Raimundo Mosher III, MD Transcribed by Seda Paz Authenticated by Raimundo Mosher III, MD on 04/05/2022 01:06:[address] [facility]
== END ==
PROVIDERS: PCP Family Medicine; Visit Provider Family Medicine
DX: R07.89 Other chest pain (principal)
CPT/HCPCS: 71046

== ENCOUNTER → 2022-04-18 11:04 | Outpatient (CLI) | payer MEDICARE, BC, SELFPAY | PROVIDERS: PCP Family Medicine; Visit Provider Internal Medicine | DX: Z01.812 Encounter for preprocedural laboratory examination (principal); Z20.822 Contact with and (suspected) exposure to COVID-19; R13.10 Dysphagia, unspecified | CPT/HCPCS: C9803; U0003; U0005 ==

== ENCOUNTER 2022-04-20 09:12 | Day surgery (SDC) | payer MEDICARE, BC, SELFPAY ==
[2022-04-14 14:12] VITALS: BMI 25.2
[2022-04-20 10:10] VITALS: BP 150/92; PULSE 86; RESP 18; TEMP 36.7; O2SAT 97
[2022-04-20 10:55] VITALS: O2SAT 97
--- NOTE | 2022-04-20 11:07 | HMH.ANESCL ---
[facility] Anesthesia Checklist - Structural Data Admitted From: Home Planned Operative Procedure/s: egd Consent for Planned Operative Procedure(s) Verified: Yes - Airway Assessment C-Spine Mobility Assessed: Yes TMJ Mobility Assessed: Yes Dentition: Edentulous - Neurological Assessment Level of Consciousness: Awake, Alert, Appropriate - Anesthesia Plan Anesthesia Risk discussed: Yes Anesthesia Plan: Verified ASA Class: III Anesthesia Type: MAC [facility] History I have reviewed the patient's past medical history: Yes Medical History: Reports:: Atherosclerotic Heart Disease, Atrial Fibrillation, Cancer (lymphoma), Congestive Heart Failure, Chronic Obstructive Pulmonary Disease (COPD), Coronary Artery Disease, Deep Vein Thrombosis, Hyperlipidemia, Hypertension, Internal Pacemaker, Kidney Stones, Myocardial Infarction, Peripheral Artery Disease, Peripheral Vascular Disease, Renal Disease, Renal Insufficiency Denies:: Diabetes Mellitus Type 1, Diabetes Mellitus Type 2, Home Oxygen, MRSA, Seizures *Have you ever received a pneumonia vaccine?: Yes *Have you received a flu vaccine this season?: No Other Medical History: Reports: Anemia, Arthritis, Chemotherapy, Radiation Therapy, Other Anesthesia experience/problems:: none Laterality Cases: Right: Total Hip Replacement Other Surgeries: Yes: CABG, Cancer Surgery, Cardiac Catheterization, Cardiac Surgery, Colonoscopy, Coronary Stent, Hernia Repair, Open Heart Surgery, Pacemaker, Skin Cancer Excision, Ureter Stent, Other (rt hip replacement) Amputation: No Fractures: No - *Social History Smoking Status: Former smoker Tobacco Type: cigarettes # Packs/Day (cigarettes): 1 #Yrs smoked (if former smoker): 32 Alcohol Intake: never Alcohol Intake Frequency:: 3 or more drinks per day Substance Use Type: denies use *Occupational Status:: retired Housing: house Household Members: spouse *Travel in the last 8 weeks: None Family Hx:: Non-contributory
--- NOTE | 2022-04-20 11:14 | P.PCN_ITS ---
- Procedure: Date: 04/20/22 Patient Date of :: 1940 Procedure Performed:: EGD Indications:: The patient is an 82 year old who presents with odynophagia and history of intermittent dysphagia. Performing Provider:: Van Loo MD Referring Provider:: Francisco J Patiño MD Sedation:: See RN notes Procedure:: The gastroscope was gently passed through the incisoral orifice into the oral cavity and under direct visualization the esophagus was intubated. The endoscope was passed down the esophagus, through the stomach, and into the duodenum. [place] r, texture, mucosa, and anatomy of the esophagus, stomach, and duodenum were carefully examined with the scope. Findings:: Oropharynx: normal Esophagus: Food substance adherent to mucosa of mid to distal esophagus. Irrigation of adherent substance revealed overall normal appearing mucosa. A small food bolus was seen above GE junction and this was pushed gently into the stomach with EGD scope. Mild distal esophagitis. There was appearance for incomplete relaxatoin at GE junction. Empiric dilatation performed sequentially with 18-20 mm tts balloon. EG Junction: measured at 40 cm Cardia: normal Fundus: normal Body: Mild gastritis. Biopsies obtained Antrum: Mild gastritis. Biopsies obtained Duodenal bulb: normal Duodenum (second and third portion): normal Recommendations:: Await pathology results Can try prilosec 20 mg once daily x 4 weeks Recommend barium esophagram with tablet to evaluate for possible achalasia or presbyesophagus Complications:: None Estimated blood obtained (mL): 0
[2022-04-20 11:16] VITALS: BP 97/58; PULSE 82; RESP 18; TEMP 36.6; O2SAT 91
[2022-04-20 11:26] VITALS: BP 99/55; PULSE 68; RESP 18; TEMP 36.6; O2SAT 94
[2022-04-20 11:36] VITALS: BP 122/71; PULSE 69; RESP 18; TEMP 36.6; O2SAT 94
[2022-04-20 12:00] VITALS: BP 113/82; PULSE 63; RESP 18; TEMP 36.6; O2SAT 93
== END 2022-04-20 12:00 | disposition home or self-care (01) ==
LOC: OUTP 09:14
PROVIDERS: PCP Family Medicine; Visit Provider Internal Medicine
PROC: 0DJ08ZZ Inspection of Upper Intestinal Tract, Via Natural or Artificial Opening Endoscopic (ICD-10-PCS; CPT 43235; principal; 2022-04-20 10:30)
DX: R13.10 Dysphagia, unspecified (principal); K22.10 Ulcer of esophagus without bleeding; K29.70 Gastritis, unspecified, without bleeding; I25.10 Atherosclerotic heart disease of native coronary artery without angina pectoris; I48.91 Unspecified atrial fibrillation; J44.9 Chronic obstructive pulmonary disease, unspecified; I50.9 Heart failure, unspecified; I13.2 Hypertensive heart and chronic kidney disease with heart failure and with stage 5 chronic kidney disease, or end stage renal disease; E78.5 Hyperlipidemia, unspecified; Z85.72 Personal history of non-Hodgkin lymphomas; I25.2 Old myocardial infarction; I73.9 Peripheral vascular disease, unspecified; Z95.0 Presence of cardiac pacemaker; N18.5 Chronic kidney disease, stage 5
CPT/HCPCS: 43239; C1726

== ENCOUNTER → 2022-04-26 12:40 | Outpatient (CLI) | payer MEDICARE, BC, SELFPAY ==
[2022-04-26 12:49] LABS: Microscopic, Urine URINE MICROSCOPIC (MICROSCOPIC)
[2022-04-26 13:13] LABS: Appearance,Urine CLEAR (Clear); Bilirubin,Urine Negative (Negative); Blood, Urine 3+ (Negative); Color,Urine YELLOW (Yellow); Glucose,Urine (UA) Negative (Negative); Ketones,Urine Negative (Negative); Leukocyte Esterase,Urine 1+ (Negative); Nitrate,Urine Negative (Negative); Protein,Urine 2+ (Negative); Urobilinogen,Urine 0.2 EU/dl (0.2)
[2022-04-26 13:19] LABS: Basophils # 0.1 K/mm3 (0-0.2); Basophils % 1.4 % (0.1-2.0); Eosinophils # 0.1 K/mm3 (0.0-0.4); Hematocrit 31.3 % (42.0-52.0); Hemoglobin 9.8 g/dL (14.1-18.0); Lymphocytes # 1.1 K/mm3 (0.7-4.5); Lymphocytes % 13.6 % (10-50); Mean Corpuscular HGB Conc 31.2 g/dL (31.8-35.4); Mean Corpuscular Hemoglobin 35.3 pg (27.0-31.2); Mean Corpuscular Volume 113.1 fl (80-94); Mean Platelet Volume 9.6 fl (7.4-10.4); Monocytes # 0.9 K/mm3 (0.1-1.0); Monocytes % 11.3 % (1.7-9.3); Neutrophils # 5.8 K/mm3 (1.8-7.8); Neutrophils % 72.8 % (37.0-80.0); Platelet Count 133 K/mm3 (142-424); Red Blood Count 2.77 M/mm3 (4.60-6.20); Red Cell Distribution Width 18.9 % (11.5-17.5)
[2022-04-26 13:30] LABS: Chloride 104 mmol/L (98-107); Potassium 3.7 mmoL/L (3.5-5.1); Sodium 139 mmol/L (136-145)
[2022-04-26 13:31] LABS: Albumin Level 3.4 g/dl (3.5-5.0)
[2022-04-26 13:33] LABS: Anion Gap 10.7 mEq/L (5-15); Blood Urea Nitrogen 39 mg/dl (9-20); Calcium 8.8 mg/dl (8.4-10.2); Carbon Dioxide 28 mmol/L (22.0-30.0); Estimated Glomerular Filt Rate 25 ml/min (>60); GFR (African American) 30 ML/MIN (>60); Glucose 107 mg/dl (74-100); Iron 70 ug/dL (49-181); Phosphorous 3.5 mg/dl (2.5-4.5)
[2022-04-26 13:37] LABS: Bacteria,Urine Trace /lpf; RBC,Urine TNTC #/hpf (0-3)
[2022-04-26 13:42] LABS: Total Iron Binding Capacity 264 ug/dL (261-462)
[2022-04-26 14:09] LABS: Ferritin 131 ng/ml (17.9-464)
[2022-04-26 14:19] LABS: Creatinine,Urine Random 78 mg/dL (Not Estab.)
== END ==
PROVIDERS: PCP Family Medicine; Visit Provider Student in an Organized Health Care Education/Training Program
DX: D64.9 Anemia, unspecified (principal); N18.4 Chronic kidney disease, stage 4 (severe); R82.90 Unspecified abnormal findings in urine
CPT/HCPCS: 36415; 80069; 81001; 82570; 82728; 83540; 83550; 84155; 85025; 87086

== ENCOUNTER 2022-06-08 02:06 | Inpatient (IN) | payer MEDICARE, BC, SELFPAY ==
[2022-06-08] VITALS (10 sets, daily range): BP systolic 108–160; BP diastolic 54–93; PULSE 70–130; RESP 16–23; TEMP 36.6–37; O2SAT 92–98; BMI 23.4; BMI 23.7
--- NOTE | 2022-06-08 02:20 | CT_ITS ---
PROCEDURE INFORMATION: Exam: CT Abdomen And Pelvis Without Contrast Exam date and time: 06/08/2022 2:49 AM Age: 82 years old Clinical indication: Abdominal pain; Generalized; Prior surgery; Surgery type: Aortic stent, bilat ureteral stents; Additional info: Abd pain TECHNIQUE: Imaging protocol: Computed tomography of the abdomen and pelvis without contrast. Radiation optimization: All CT scans at this facility use at least one of these dose optimization techniques: automated exposure control; mA and/or kV adjustment per patient size (includes targeted exams where dose is matched to clinical indication); or iterative reconstruction. COMPARISON: CT ABDOMEN PELVIS WO CON 03/10/2020 10:31 AM FINDINGS: Tubes, catheters and devices: Pacemaker is noted. Bilateral double pigtail ureteral stents are in place. Lungs: Atelectasis noted at each lung base. Bibasilar subpleural reticular opacities are noted, left greater than right, slightly progressed from prior exam in 2019. Heart: Heart is enlarged with considerable coronary artery calcification. Diaphragm: Small hiatal hernia. Liver: Normal. No mass. Gallbladder and bile ducts: Normal. No calcified stones. No ductal dilation. Pancreas: Normal. No ductal dilation. Spleen: Normal. No splenomegaly. Adrenal glands: Normal. No mass. Kidneys and ureters: Kidneys are severely atrophic. Intrarenal stones are noted on the left. Stomach and bowel: Stomach is distended with gas and fluid. Distal small bowel and colon are decompressed. There is diverticulosis throughout the colon without evidence of acute diverticulitis. Appendix: No evidence of appendicitis. Intraperitoneal space: Unremarkable. No free air. No significant fluid collection. Vasculature: There has been prior aorto bi-iliac stent graft placement. Excluded abdominal aortic aneurysm measures 3.6 cm maximal diameter. No perianeurysmal hemorrhage or fibrosis. There are 2 separate femoral to femoral bypass grafts in place. Lymph nodes: Unremarkable. No enlarged lymph nodes. Urinary bladder: Unremarkable as visualized. Reproductive: Unremarkable as visualized. Bones/joints: Chronic appearing compression deformities are noted at L2 and L5. There is a right hip prosthesis in place. Multiple thick-walled fluid collections are seen surrounding the right hip prosthesis with apparent erosion or remodeling of the greater trochanter. This finding has progressed when compared to the prior. Soft tissues: Small bowel is diffusely distended to the level of a left inguinal hernia which contains bowel in fluid. IMPRESSION: 1. Exam demonstrates features of small bowel obstruction. Transition point appears to be a direct right inguinal hernia containing loops of bowel and fluid. 2. Bilateral ureteral pigtail stents are in expected positions. 3. Progressive thick-walled fluid collection surround the prosthetic right hip, eroding the greater trochanter. Finding has progressed over the last 2 years. Consider orthopedic consultation on a nonemergent basis. 4. Additional chronic findings are detailed above.
[2022-06-08 02:49] LABS: Basophils # 0.1 K/mm3 (0-0.2); Basophils % 0.8 % (0.1-2.0); Eosinophils # 0.1 K/mm3 (0.0-0.4); Eosinophils % 0.5 % (0.1-12.0); Hematocrit 39.1 % (42.0-52.0); Hemoglobin 12.1 g/dL (14.1-18.0); Lymphocytes # 1.1 K/mm3 (0.7-4.5); Lymphocytes % 9.7 % (10-50); Mean Corpuscular Hemoglobin 34.5 pg (27.0-31.2); Mean Corpuscular Volume 111.2 fl (80-94); Mean Platelet Volume 9.1 fl (7.4-10.4); Monocytes # 1.1 K/mm3 (0.1-1.0); Monocytes % 9.3 % (1.7-9.3); Neutrophils # 9.4 K/mm3 (1.8-7.8); Neutrophils % 79.6 % (37.0-80.0); Platelet Count 127 K/mm3 (142-424); Red Blood Count 3.51 M/mm3 (4.60-6.20); Red Cell Distribution Width 16.6 % (11.5-17.5); White Blood Count 11.8 K/mm3 (4.8-10.8)
[2022-06-08 02:59] LABS: Alanine Aminotransferase 22 U/L (12-78); Albumin Level 3.7 g/dl (3.5-5.0); Albumin/Globulin Ratio 1.2 (1.1-1.8); Alkaline Phosphatase 117 U/L (38-126); Amylase 72 U/L (30-110); Anion Gap 12.3 mEq/L (5-15); Aspartate Amino Transferase 38 U/L (17-59); Bilirubin,Total 0.6 mg/dl (0.2-1.3); Blood Urea Nitrogen 34 mg/dl (9-20); Calcium 9.5 mg/dl (8.4-10.2); Carbon Dioxide 31 mmol/L (22.0-30.0); Chloride 102 mmol/L (98-107); Creatinine Clearance Estimated 22 mL/min (50-200); Estimated Glomerular Filt Rate 23 ml/min (>60); GFR (African American) 28 ML/MIN (>60); Glucose 128 mg/dl (74-100); Lipase 48 U/L (23-300); Potassium 4.3 mmoL/L (3.5-5.1); Sodium 141 mmol/L (136-145); Total Protein,Serum 6.7 g/dl (6.3-8.2)
[2022-06-08 03:04] LABS: C-Reactive Protein 41.4 mg/L (0-4)
--- NOTE | 2022-06-08 03:07 | PC.NURSE ---
COVID SWAB OBTAINED. PT REPORTS THAT PAIN HAS NOT IMPROVED. FAMILY REMAINS AT BEDSIDE.
[2022-06-08 03:14] LABS: Coronavirus 19, PCR Not Detected (NotDetected); Influenza A, PCR Not Detected (NotDetected); Influenza B, PCR Not Detected (NotDetected)
[2022-06-08 03:16] LABS: Erythrocyte Sedimentation Rate 22 mm/hr (0-20)
[2022-06-08 03:18] LABS: Procalcitonin 0.126 ng/mL (0.0-2.0)
--- NOTE | 2022-06-08 03:39 | PC.NURSE ---
is speaking with virtual radiology.
--- NOTE | 2022-06-08 03:44 | HMH.EDNVD ---
ED Disposition Clinical Impression: Small bowel obstruction, Right hip pain, Chronic renal insufficiency, stage V Disposition: Admitted As Inpatient Condition on Discharge: Fair Instructions: DI for Acute Abdominal Pain Referrals: Alex Patiño MD [Primary Care Provider] - - Critical Care Critical Care Time: No Attestation: On 06/08/22, the high probability of a clinically significant, sudden or life threatening deterioration of the following system(s) required my full and direct attention, intervention and personal management. The time I documented below is in addition to time spent performing reported procedures but includes the following listed in this critical care notation. Medical Decision Making - Medical Records Medical records reviewed: Yes: I reviewed the patient's medical records. - Alex Inquiry Pt receiving controlled substance: No Vital Signs: 06/08/22 02:07 06/08/22 02:44 Temperature 97.8 F Temperature Source Oral Pulse Rate 76 Pulse Rate [Right] 82 Respiratory Rate 16 Blood Pressure 155/88 H Blood Pressure [Right Arm] 160/91 H Blood Pressure Mean 107 Blood Pressure Mean [Right Arm] 114 02 Sat by Pulse Oximetry 98 97 - Lab Data Lab results reviewed: Yes: I reviewed the patient's lab results. Lab Results 06/08/22 02:40: WBC 11.8 H, RBC 3.51 L, Hgb 12.1 L, Hct 39.1 L, MCV 111.2 H, MCH 34.5 H, MCHC 31.0 L, RDW 16.6, Plt Count 127 L, MPV 9.1, Neut % (Auto) 79.6, Lymph % (Auto) 9.7 L, [place] % (Auto) 9.3, Eos % (Auto) 0.5, Baso % (Auto) 0.8, Neut # (Auto) 9.4 H, Lymph # (Auto) 1.1, [place] # (Auto) 1.1 H, Eos # (Auto) 0.1, Baso # (Auto) 0.1, ESR 22 H 06/08/22 02:40: Sodium 141, Potassium 4.3, Chloride 102, Carbon Dioxide 31 H, Anion Gap 12.3, BUN 34 H, Creatinine 2.70 H, Estimated Creat Clear 22, Estimated GFR 23 L, Est GFR ( Amer) 28 L, Glucose 128 H, Calcium 9.5, Total Bilirubin 0.6, AST 38, ALT 22, Alkaline Phosphatase 117, C-Reactive Protein 41.4 H, Total Protein 6.7, Albumin 3.7, Globulin 3.0, Albumin/Globulin Ratio 1.2, Amylase 72, Lipase 48, Procalcitonin 0.126 06/08/22 03:06: SARS-CoV-2 (PCR) Not detected, Influenza A Untype (PCR) Not detected, Influenza Type B (PCR) Not detected Result diagrams: 06/08/22 02:40 06/08/22 02:40 Orders (Tests/Meds): ED MEDICATIONS Generic Name Dose Route Start Last Admin Trade Name Freq PRN Reason Stop Dose Admin Sodium Chloride 1,000 mls @ 999 mls/hr 06/08/22 02:30 06/08/22 02:39 Sod Chlor 0.9% 1000ml Bag IV 06/08/22 03:30 999 mls/hr .Q1H1M BLANCA Administration Sodium Chloride 8 ml 06/08/22 02:22 Sodium Chloride 0.9% 10ml Vial IV 07/08/22 02:21 NEEDED PRN dilute pepcid Discontinued Medications Generic Name Dose Route Start Last Admin Trade Name Freq PRN Reason Stop Dose Admin Famotidine 20 mg 06/08/22 02:22 06/08/22 02:39 Famotidine 20mg/2ml Vial IV 06/08/22 02:23 20 mg ONCE ONE Administration Metoclopramide HCl 10 mg 06/08/22 02:22 06/08/22 02:39 Metoclopramide Hcl 10mg/2ml Vial IVP 06/08/22 02:23 10 mg ONCE ONE Administration Morphine Sulfate 2 mg 06/08/22 03:06 06/08/22 03:09 Morphine 2mg/Ml Syringe IV 06/08/22 03:07 2 mg ONCE ONE Administration Ondansetron HCl 4 mg 06/08/22 02:22 06/08/22 02:39 Ondansetron 4mg/2ml Vial IV 06/08/22 02:23 4 mg ONCE ONE Administration ORDERS Category Date Time Status Urinalysis and Microscopic Stat Lab 06/08/22 02:20 Ordered - CT Data CT Scan: Abdomen, Pelvis Time Received: 04:[address] Reviewed: Yes: I have viewed the radiologist's interpretation Preliminary Findings: Abnormal (sbo and changes rt hip ) - Physician Consults Physician Consulted: meche Reason -: Admission Medical Decision Narrative: has acute sbo with no def incarcerated hernia on clinical exam - petr has crf and at baseline and chronic changes rt hip Nausea/Vomiting/Diarrhea HPI - General Chief complaint: Abdom
--- NOTE | 2022-06-08 04:03 | PC.NURSE ---
paged dr mcgregor @ this time
--- NOTE | 2022-06-08 04:06 | PC.NURSE ---
elvis on phone with dr mcgregor
[2022-06-08 04:22] LABS: Microscopic, Urine URINE MICROSCOPIC (MICROSCOPIC)
[2022-06-08 04:49] LABS: Bilirubin,Urine Negative (Negative); Blood, Urine 3+ (Negative); Color,Urine YELLOW (Yellow); Glucose,Urine (UA) Negative (Negative); Ketones,Urine Negative (Negative); Leukocyte Esterase,Urine TRACE (Negative); Nitrate,Urine Negative (Negative); PH,Urine 5.5 (5.0-8.5); Protein,Urine 2+ (Negative); Specific Gravity, Urine 1.025 (1.005-1.030); Urobilinogen,Urine 0.2 EU/dl (0.2)
[2022-06-08 04:51] LABS: Appearance,Urine Slightly Cloudy (Clear); Bacteria,Urine 1+ /lpf; Squamous Epithelial Cell,Urine Occasional #/hpf (0-5)
[2022-06-08 07:05] LABS: POC Glucose,Bedside 112 (70-110)
--- NOTE | 2022-06-08 07:43 | P.CONPHA_ITS ---
[facility] Pharmacy VTE Monitoring - Patient Demographics Admission date: 06/08/22 Report Date: 06/08/22 Time: 07:43 Allergies/Adverse Reactions: Patient Allergies latex Allergy (Verified 06/08/22 05:46) kidney dye Allergy (Intermediate, Uncoded 04/20/22 10:07) Other Height: 1.73 m Weight: 70.76 kg Patient Problems: Current Active Problems Right hip pain (Chronic) Chronic renal insufficiency, stage V (Chronic) Small bowel obstruction (Acute) - VTE Risk Labs: VTE Related Lab Results Hgb 12.1 g/dL (14.1-18.0) L 06/08/22 02:40 Hct 39.1 % (42.0-52.0) L 06/08/22 02:40 Plt Count 127 K/mm3 (142-424) L 06/08/22 02:40 BUN 34 mg/dl (9-20) H 06/08/22 02:40 Creatinine 2.70 mg/dl (0.66-1.25) H 06/08/22 02:40 Estimated Creat Clear 22 mL/min (50-200) 06/08/22 02:40 Was VTE Risk Assessment Performed: Yes VTE Score: 5 VTE Risk Level: Low Risk - Prophylaxis VTE Prophylaxis Ordered?: Yes Types of VTE Prophylaxis: TEDS Knee High Location of Applied Device: Bilateral Lower Extremeties
--- NOTE | 2022-06-08 07:46 | HMH.PHAINT ---
MEDICATION RECONCILIATION COMPLETED ON PATIENT USING EXTERNAL FILL HISTORY FROM PHARMACY. -MANINDER LOPEZ, POD
--- NOTE | 2022-06-08 08:35 | PC.NURSE ---
I called to inform surgery of consult; spoke with Sonya
--- NOTE | 2022-06-08 08:42 | HMH.HP ---
*Admission Date: 06/08/22 <Starla Salcedo - 06/08/22 08:42> *Chief complaint: Abdominal pain <Starla Salcedo - 06/08/22 08:42> *History of present illness: Mr. Graff is an 89-year-old male with a history of bilateral renal stents followed by urology, chronic kidney disease followed by nephrology, degenerative disc disease, coronary artery disease followed by cardiology with CHF, COPD, hypertension, history of lymphoma, chronic pain followed by [facility], and peripheral vascular disease. He presented to [facility] emergency room after experiencing severe abdominal pain for the last 24 to 48 hours. Progressively worsened and thus his presentation. In the emergency room he had CT of the abdomen with the following results: COMPARISON: CT ABDOMEN PELVIS WO CON 03/10/2020 10:31 AM FINDINGS: Tubes, catheters and devices: Pacemaker is noted. Bilateral double pigtail ureteral stents are in place. Lungs: Atelectasis noted at each lung base. Bibasilar subpleural reticular opacities are noted, left greater than right, slightly progressed from prior exam in 2019. Heart: Heart is enlarged with considerable coronary artery calcification. Diaphragm: Small hiatal hernia. Liver: Normal. No mass. Gallbladder and bile ducts: Normal. No calcified stones. No ductal dilation. Pancreas: Normal. No ductal dilation. Spleen: Normal. No splenomegaly. Adrenal glands: Normal. No mass. Kidneys and ureters: Kidneys are severely atrophic. Intrarenal stones are noted on the left. Stomach and bowel: Stomach is distended with gas and fluid. Distal small bowel and colon are decompressed. There is diverticulosis throughout the colon without evidence of acute diverticulitis. Appendix: No evidence of appendicitis. Intraperitoneal space: Unremarkable. No free air. No significant fluid collection. Vasculature: There has been prior aorto bi-iliac stent graft placement. Excluded abdominal aortic aneurysm measures 3.6 cm maximal diameter. No perianeurysmal hemorrhage or fibrosis. There are 2 separate femoral to femoral bypass grafts in place. Lymph nodes: Unremarkable. No enlarged lymph nodes. Urinary bladder: Unremarkable as visualized. Reproductive: Unremarkable as visualized. Bones/joints: Chronic appearing compression deformities are noted at L2 and L5. There is a right hip prosthesis in place. Multiple thick-walled fluid collections are seen surrounding the right hip prosthesis with apparent erosion or remodeling of the greater trochanter. This finding has progressed when compared to the prior. Soft tissues: Small bowel is diffusely distended to the level of a left inguinal hernia which contains bowel in fluid. IMPRESSION: 1. Exam demonstrates features of small bowel obstruction. Transition point appears to be a direct right inguinal hernia containing loops of bowel and fluid. 2. Bilateral ureteral pigtail stents are in expected positions. 3. Progressive thick-walled fluid collection surround the prosthetic right hip, eroding the greater trochanter. Finding has progressed over the last 2 years. Consider orthopedic consultation on a nonemergent basis. 4. Additional chronic findings are detailed above. With evaluation in the emergency room he was found to be afebrile. White blood cell count was 11,800. Electrolytes were normal. Renal function showed a BUN of 34 and creatinine of 2.7. He received a liter of IV fluids along with IV Pepcid, Reglan and morphine for pain and Zofran for his nausea. He had an abnormal CT scan ; please see results. He was then admitted for further evaluation and treatment with a surgical consult. This a.m. patient continues to be in severe abdominal pain. He might be a little bit nauseated. He continues to belch. Bowels have not moved. He was given additional morphine for his pain along with Phenergan IV. <Starla Salcedo - 06/08/22 11:4
[2022-06-08 11:34] LABS: POC Glucose,Bedside 100 (70-110)
--- NOTE | 2022-06-08 11:44 | HMH.GSCON ---
*Admission Date: 06/08/22 *Reason for consult:: Small bowel obstruction *History of present illness: This is an 82-year-old gentleman seen in consultation from Dr. Patiño for evaluation regarding small bowel obstruction. He presented to the emergency department with increasing nausea, vomiting, and abdominal distention. A CT scan showed evidence of obstruction most likely secondary to incarcerated left inguinal hernia. The surgical service was consulted for evaluation and management. Review of Systems - Constitutional Denies chills - *Gastrointestinal Reports abdominal pain, Reports nausea, Reports vomiting - *Neurologic Denies dizziness, Denies seizure-like activity [facility] History Medical History: Reports:: Arrhythmia, Atherosclerotic Heart Disease, Atrial Fibrillation, Cancer, Congestive Heart Failure, Chronic Obstructive Pulmonary Disease (COPD), Coronary Artery Disease, Deep Vein Thrombosis, Diabetes Mellitus Type 2, Hyperlipidemia, Hypertension, Internal Pacemaker, Kidney Stones, Myocardial Infarction, Peripheral Artery Disease, Peripheral Vascular Disease, Renal Disease, Renal Insufficiency Denies:: Diabetes Mellitus Type 1, Home Oxygen, MRSA, Seizures *Have you ever received a pneumonia vaccine?: Yes *Have you received a flu vaccine this season?: Yes Other Medical History: Reports: Anemia, Arthritis, Chemotherapy, Radiation Therapy, Other Laterality Cases: Right: Total Hip Replacement Other Surgeries: Yes: CABG, Cancer Surgery, Cardiac Catheterization, Cardiac Surgery, Colonoscopy, Coronary Stent, Hernia Repair, Open Heart Surgery, Pacemaker, Skin Cancer Excision, Ureter Stent, Other (rt hip replacement) Amputation: No Fractures: No - *Social History Smoking Status: Former smoker Tobacco Type: cigarettes # Packs/Day (cigarettes): 1 #Yrs smoked (if former smoker): 32 Alcohol Intake: never Alcohol Intake Frequency:: 3 or more drinks per day Substance Use Type: denies use *Occupational Status:: retired, disabled Housing: house Household Members: spouse *Travel in the last 8 weeks: None Family Hx:: Cancer Meds Home Medications Medication Instructions Recorded Confirmed Type atorvastatin 40 mg tablet 40 mg PO HS 90 Days #90 01/18/18 06/08/22 History Iron,Carb/Vit C/Vit B12/Folic 1 each PO BID 05/13/18 06/08/22 History [Iron 100 Plus Tablet] Hydrocodone/Acetaminophen 1 - 2 tab PO Q6HP PRN 10/13/18 06/08/22 History [Hydrocodone-Acetamin 7.5-325] carvedilol 6.25 mg tablet 6.25 mg PO BID tab 09/15/20 06/08/22 History Aspirin [Aspirin 81mg EC Tab] 81 mg PO DAILY 04/14/22 06/08/22 History omeprazole magnesium 20 mg 20 mg PO DAILY #60 tab 05/19/22 06/08/22 Rx tablet,delayed release Bumetanide [Bumex 1mg tablet] 1 mg PO DAILY 06/08/22 06/08/22 History Gabapentin [Neurontin 300mg 300 mg PO BID 06/08/22 06/08/22 History capsule] Allergies Allergy/AdvReac Type Severity Reaction Status Date / Time latex Allergy Verified 06/08/22 05:46 kidney dye Allergy Intermediate Other Uncoded 04/20/22 10:07 Exam Vital signs and Labs for Last 24 Hours: Temp Pulse Resp BP Pulse Ox 98.2 F 94 H 18 114/67 94 L 06/08/22 08:00 06/08/22 08:00 06/08/22 08:00 06/08/22 08:00 06/08/22 08:00 Laboratory Results - last 24 hr 06/08/22 02:40: WBC 11.8 H, RBC 3.51 L, Hgb 12.1 L, Hct 39.1 L, MCV 111.2 H, MCH 34.5 H, MCHC 31.0 L, RDW 16.6, Plt Count 127 L, MPV 9.1, Neut % (Auto) 79.6, Lymph % (Auto) 9.7 L, Bowman % (Auto) 9.3, Eos % (Auto) 0.5, Baso % (Auto) 0.8, Neut # (Auto) 9.4 H, Lymph # (Auto) 1.1, Bowman # (Auto) 1.1 H, Eos # (Auto) 0.1, Baso # (Auto) 0.1, ESR 22 H 06/08/22 02:40: Sodium 141, Potassium 4.3, Chloride 102, Carbon Dioxide 31 H, Anion Gap 12.3, BUN 34 H, Creatinine 2.70 H, Estimated Creat Clear 22, Estimated GFR 23 L, Est GFR ( Amer) 28 L, Glucose 128 H, Calcium 9.5, Total Bilirubin 0.6, AST 38, ALT 22, Alkaline Phosphatase 117, C-Reactive Protein 41.4 H, Total Protein 6.7, Albumin 3.7, Sima
--- NOTE | 2022-06-08 13:41 | ECG_ITS ---
APPROVED REPORT Exam: Resting ECG HR:113 bpm ECG Measurements Heart Rate 113 AXES QRSd 117 QRS -70 QT 347 T 105 QTc 414 Conclusion ATRIAL FLUTTER/TACHYCARDIA WITH RAPID VENTRICULAR RESPONSE PATTERN CONSISTENT WITH PULMONARY DISEASE INFERIOR MYOCARDIAL INFARCTION , OF INDETERMINATE AGE [40+ ms Q WAVE AND/OR ST/T ABNORMALITY IN II/aVF] MODERATE T-WAVE ABNORMALITY, CONSIDER LATERAL ISCHEMIA [-0.1+ mV T-WAVE IN I/aVL/V5/V6] ABNORMAL ECG UNCONFIRMED REPORT Electronically signed by : Ryan Aviles MD 06/08/2022 21:00:40
--- NOTE | 2022-06-08 14:24 | HMH.CNCARD ---
History of Present Illness Consult date: 06/08/22 Requesting physician: Alex Patiño Consult reason: atrial fibrillation Chief complaint: sbo Additional Medical History:: Past medical hx: PAF COPD requiring oxygen CAD RAD Chronic renal insufficency History of present illness: 82 year old male with above past medical hx presented to ED yesterday with complaint of abdominal Pain. Patient reports developed abdominal pain 2 days ago that progressed and worsened yesterday. Upon presentation to ED CT was positive for SBO. patient was admitted for Surgery consult. Patient developed afib rvr rate in the 150s just prior to this consult. Home BB on hold due to ng tube. Denies cp or soa. [facility] History Medical History: Reports:: Arrhythmia, Atherosclerotic Heart Disease, Atrial Fibrillation, Cancer, Congestive Heart Failure, Chronic Obstructive Pulmonary Disease (COPD), Coronary Artery Disease, Deep Vein Thrombosis, Diabetes Mellitus Type 2, Hyperlipidemia, Hypertension, Internal Pacemaker, Kidney Stones, Myocardial Infarction, Peripheral Artery Disease, Peripheral Vascular Disease, Renal Disease, Renal Insufficiency Denies:: Diabetes Mellitus Type 1, Home Oxygen, MRSA, Seizures *Have you ever received a pneumonia vaccine?: Yes *Have you received a flu vaccine this season?: Yes Other Medical History: Reports: Anemia, Arthritis, Chemotherapy, Radiation Therapy, Other Laterality Cases: Right: Total Hip Replacement Other Surgeries: Yes: CABG, Cancer Surgery, Cardiac Catheterization, Cardiac Surgery, Colonoscopy, Coronary Stent, Hernia Repair, Open Heart Surgery, Pacemaker, Skin Cancer Excision, Ureter Stent, Other (rt hip replacement) Amputation: No Fractures: No - *Social History Smoking Status: Former smoker Tobacco Type: cigarettes # Packs/Day (cigarettes): 1 #Yrs smoked (if former smoker): 32 Alcohol Intake: never Alcohol Intake Frequency:: 3 or more drinks per day Substance Use Type: denies use *Occupational Status:: retired, disabled Housing: house Household Members: spouse *Travel in the last 8 weeks: None Family Hx:: Cancer Meds Home Medications Medication Instructions Recorded Confirmed Type atorvastatin 40 mg tablet 40 mg PO HS 90 Days #90 01/18/18 06/08/22 History Iron,Carb/Vit C/Vit B12/Folic 1 each PO BID 05/13/18 06/08/22 History [Iron 100 Plus Tablet] Hydrocodone/Acetaminophen 1 - 2 tab PO Q6HP PRN 10/13/18 06/08/22 History [Hydrocodone-Acetamin 7.5-325] carvedilol 6.25 mg tablet 6.25 mg PO BID tab 09/15/20 06/08/22 History Aspirin [Aspirin 81mg EC Tab] 81 mg PO DAILY 04/14/22 06/08/22 History omeprazole magnesium 20 mg 20 mg PO DAILY #60 tab 05/19/22 06/08/22 Rx tablet,delayed release Bumetanide [Bumex 1mg tablet] 1 mg PO DAILY 06/08/22 06/08/22 History Gabapentin [Neurontin 300mg 300 mg PO BID 06/08/22 06/08/22 History capsule] Allergies Allergy/AdvReac Type Severity Reaction Status Date / Time latex Allergy Verified 06/08/22 05:46 kidney dye Allergy Intermediate Other Uncoded 04/20/22 10:07 Exam Vital signs and Labs for Last 24 Hours: Temp Pulse Resp BP Pulse Ox 98.2 F 130 H 18 114/67 94 L 06/08/22 08:00 06/08/22 13:30 06/08/22 08:00 06/08/22 08:00 06/08/22 08:00 Laboratory Results - last 24 hr 06/08/22 02:40: WBC 11.8 H, RBC 3.51 L, Hgb 12.1 L, Hct 39.1 L, MCV 111.2 H, MCH 34.5 H, MCHC 31.0 L, RDW 16.6, Plt Count 127 L, MPV 9.1, Neut % (Auto) 79.6, Lymph % (Auto) 9.7 L, Allen % (Auto) 9.3, Eos % (Auto) 0.5, Baso % (Auto) 0.8, Neut # (Auto) 9.4 H, Lymph # (Auto) 1.1, Allen # (Auto) 1.1 H, Eos # (Auto) 0.1, Baso # (Auto) 0.1, ESR 22 H 06/08/22 02:40: Sodium 141, Potassium 4.3, Chloride 102, Carbon Dioxide 31 H, Anion Gap 12.3, BUN 34 H, Creatinine 2.70 H, Estimated Creat Clear 22, Estimated GFR 23 L, Est GFR ( Amer) 28 L, Glucose 128 H, Calcium 9.5, Total Bilirubin 0.6, AST 38, ALT 22, Alkaline Phosphatase 117, C-Reactive Protein 41.4 H, Total Protein 6.
--- NOTE | 2022-06-08 17:29 | PC.NURSE ---
Pt is alert and oriented x4. He remains on 2L NC and tolerating well. and sister have been to visit most of the shift and have been updated on poc. He required zofran and phenergan this am for nausea and vomiting. Prn morphine request x1 for pain. Relief was noted on reassessment. At approx 1335 I noticed pt's HR was measuring 150's-160's when monitoring his v/s. I went in to assess patient and he denied any sob or cp. No diaphoresis noted, stated he felt ok . orthotic technician came over to assist myself. EKG was ordered and Audie Choudhury APRN notified of change. She requested a cardology cx be ordered and lovenox bid. Cardiology notified of consult. Pharmacy notified of lovenox order. When cardiology came to the floor pt's HR was 110's-130's. EKG read aflutter w/RVR. 5mg lopressor IV ordered for patient. After administering lopressor pt's hr dropped to 80's-115 but mostly 80's-90's. He remains in afib/aflutter at this time. Left inguinal hernia has been checked approx every 45mins-1hr. At 1345 it was noted that it needed to be reduced again. Dr Ortiz notified and he immediately came to the floor and reduced hernia again. I have checked it frequently since and has not needed reducing. NG was placed this am by Fransisca Alberto RN with aprox 1200mls of brown/greenish drainage noted immediately. Its in rt nare at 54 cm. He has since required 1 dose of zofran with with favorable result noted on reassessment.
[2022-06-09] VITALS (7 sets, daily range): BP systolic 109–135; BP diastolic 55–72; PULSE 67–85; RESP 16–18; TEMP 36.3–36.9; O2SAT 94–97; BMI 23.5
--- NOTE | 2022-06-09 06:14 | PC.NURSE ---
pt up several times with loose diarrhea stools, pt incontinent on self couple of times with loose stools, hernia area felt several times through the night for need of reducing, no reducing was needed through the night, pt a&o x4; telemetry afib to paced rythm with rates in the 80's, VSS, 02 at 3L with sats 95%; lungs clear and diminished, no other issues or concerns at this time, dr cortes at bedside to see patient.
--- NOTE | 2022-06-09 06:40 | P.PN_ITS ---
Subjective Patient reports: feels better, bowel movement, diarrhea Progress Note: A&P (1) Incarcerated left inguinal hernia Status: Acute Assessment and plan: Currently reduced. I have had a long discussion with the patient concerning his hernia and the risks of incarceration. The patient states that he saw Dr. Urias (a surgeon in [facility]) earlier this week and is in the process of planning laparoscopic repair. He reports that he is already undergone cardiac clearance for Dr. Urias and is scheduled to see anesthesia for final operative planning/clearance. Although the patient does not require emergent intervention, operative repair fairly urgently warranted. I recommend reevaluation/operative planning as soon as possible for Dr. Urias's ([facility]) team as the patient is currently nearing the end of his preoperative clearance process. Nasogastric tube to be removed and clear liquid diet ordered. (2) Small bowel obstruction Status: Acute (3) Chronic renal insufficiency, stage V Status: Chronic (4) DYLLAN (acute kidney injury) Status: Acute (5) Acute on chronic renal failure Status: Acute (6) GERD (gastroesophageal reflux disease) Status: Chronic (7) Pacemaker Status: Chronic (8) CAD (coronary artery disease) Status: Chronic (9) CHF (congestive heart failure) Status: Chronic (10) History of renal stent Status: Chronic (11) Hx of lymphoma Status: Chronic (12) PAD (peripheral artery disease) Status: Chronic Exam Vital signs and Labs for Last 24 Hours: Temp Pulse Resp BP Pulse Ox 98.1 F 84 16 128/66 95 06/09/22 04:00 06/09/22 04:00 06/09/22 04:00 06/09/22 04:00 06/09/22 04:00 Laboratory Results - last 24 hr 06/08/22 06:56: POC Glucose 112 H 06/08/22 11:22: POC Glucose 100 I & O for Last 24 hours: Intake & Output 06/06/22 06/07/22 06/08/22 06/09/22 11:59 11:59 11:59 11:59 Intake Total 2254 / 2254 Output Total 120 / 120 1750 / 1750 Balance -120 / -120 504 / 504 Weight 156 lb 155 lb 3.2 oz - Constitutional no acute distress - *Routine Respiratory Exam Absent: respiratory distress - *Routine Cardiovascular Exam Absent: tachycardia - *Routine Abdominal Exam Present: soft Comments: Left inguinal hernia currently reduced
--- NOTE | 2022-06-09 08:38 | P.PN_ITS ---
Internal Medicine - PN: Subj *Date: 06/09/22 *Time: 08:45 Interval history: Surgery consultation noted. Patient is feeling better. He is now having some diarrhea with stool abdominal pain and bloating is improved. He is taking clear liquids this morning. NG still in place. Exam Vital signs and Labs for Last 24 Hours: Temp Pulse Resp BP Pulse Ox 98.4 F 79 17 135/71 97 06/09/22 08:00 06/09/22 08:00 06/09/22 08:00 06/09/22 08:00 06/09/22 08:00 Laboratory Results - last 24 hr 06/08/22 11:22: POC Glucose 100 I & O for Last 24 hours: Intake & Output 06/06/22 06/07/22 06/08/22 06/09/22 11:59 11:59 11:59 11:59 Intake Total 2254 / 2254 Output Total 120 / 120 1750 / 1750 Balance -120 / -120 504 / 504 Weight 156 lb 155 lb 3.2 oz Narrative: Alert and in no acute distress. Color is good. Lungs with generally diminished breath sounds. Heart is regular. Abdomen is soft and nondistended with some mild diffuse low abdominal tenderness. Extremities no edema Assessment and Plan (1) Incarcerated left inguinal hernia Status: Acute Category: Medical Code(s): K40.30 - Unilateral inguinal hernia, with obstruction, without gangrene, not specified as recurrent (2) Small bowel obstruction Status: Acute Category: Medical Code(s): K56.609 - Unspecified intestinal obstruction, unspecified as to partial versus complete obstruction (3) Chronic renal insufficiency, stage V Status: Chronic Category: Medical Code(s): N18.5 - Chronic kidney disease, stage 5 (4) DYLLAN (acute kidney injury) Status: Acute Category: Medical Code(s): N17.9 - Acute kidney failure, unspecified (5) Acute on chronic renal failure Status: Acute Qualifiers: Acute renal failure type: unspecified Chronic kidney disease stage: stage 4 (severe) Qualified Code(s): N17.9 - Acute kidney failure, unspecified; N18.4 - Chronic kidney disease, stage 4 (severe) Category: Medical Code(s): N17.9 - Acute kidney failure, unspecified; N18.9 - Chronic kidney disease, unspecified (6) GERD (gastroesophageal reflux disease) Status: Chronic Category: Medical Code(s): K21.9 - Gastro-esophageal reflux disease without esophagitis (7) Pacemaker Status: Chronic Category: Medical Code(s): Z95.0 - Presence of cardiac pacemaker (8) CAD (coronary artery disease) Status: Chronic Category: Medical Code(s): I25.10 - Atherosclerotic heart disease of [place] coronary artery without angina pectoris (9) CHF (congestive heart failure) Status: Chronic Qualifiers: Heart failure type: unspecified Heart failure chronicity: acute on chronic Qualified Code(s): I50.9 - Heart failure, unspecified Category: Medical Code(s): I50.9 - Heart failure, unspecified (10) History of renal stent Status: Chronic Category: Surgical (11) Hx of lymphoma Status: Chronic Category: Medical Code(s): Z85.72 - Personal history of non- Hodgkin lymphomas (12) PAD (peripheral artery disease) Status: Chronic Category: Medical Code(s): I73.9 - Peripheral vascular disease, unspecified - Assessment and plan all Dx Assessment and Plan for all problems:: Improved. Incarcerated hernia reduced. NG tube is being removed. Clear liquid diet. Resume home medications. Will contact Dr. Urias's office to make him aware of current
--- NOTE | 2022-06-09 18:52 | PC.NURSE ---
pt A&OX4. pt has been up to BSC with minimal assitance. loose, watery stools. no complaints of pain or nausea. tolerating clear liquid diet. Afib/junctional with prolonged QT on tele. call light in reach, bed in lowest position and wheels locked.
[2022-06-10] VITALS: BP 121/70; PULSE 60; PULSE 66; RESP 20; TEMP 36.5; O2SAT 98
[2022-06-10 04:00] VITALS: BP 124/76; PULSE 57; PULSE 84; RESP 18; TEMP 36.6; O2SAT 98
[2022-06-10 04:36] VITALS: BMI 23.2
--- NOTE | 2022-06-10 04:47 | PC.NURSE ---
Pt A&OX4. Pt has been up to BSC with minimal assistance. loose, watery stools noted. No complaints of pain or nausea. Patient has been afib on tele. Lt hernia area felt several times through the night for need of reducing, no reducing was needed through the night. Patient is tolerating 2l nc sats above 90%.
--- NOTE | 2022-06-10 07:21 | P.PN_ITS ---
Subjective Patient reports: no new complaints Progress Note: A&P (1) Incarcerated left inguinal hernia Status: Acute Assessment and plan: Currently reduced. Evaluation with regard to operative repair as per his surgical team in [facility]. (2) Small bowel obstruction Status: Acute Assessment and plan: Resolved with reduction of hernia. [place] diet ordered (3) Chronic renal insufficiency, stage V Status: Chronic (4) DYLLAN (acute kidney injury) Status: Acute (5) Acute on chronic renal failure Status: Acute (6) GERD (gastroesophageal reflux disease) Status: Chronic (7) Pacemaker Status: Chronic (8) CAD (coronary artery disease) Status: Chronic (9) CHF (congestive heart failure) Status: Chronic (10) History of renal stent Status: Chronic (11) Hx of lymphoma Status: Chronic (12) PAD (peripheral artery disease) Status: Chronic Exam Vital signs and Labs for Last 24 Hours: Temp Pulse Resp BP Pulse Ox 97.9 F 84 18 124/76 98 06/10/22 04:00 06/10/22 04:00 06/10/22 04:00 06/10/22 04:00 06/10/22 04:00 I & O for Last 24 hours: Intake & Output 06/07/22 06/08/22 06/09/22 06/10/22 11:59 11:59 11:59 11:59 Intake Total 3094 / 3094 2737 / 2737 Output Total 120 / 120 1750 / 1750 Balance -120 / -120 1344 / 1344 2737 / 2737 Weight 156 lb 155 lb 3.2 oz 153 lb 4.8 oz - Constitutional no acute distress - *Routine Respiratory Exam Absent: respiratory distress - *Routine Cardiovascular Exam Absent: tachycardia - *Routine Abdominal Exam Present: soft Comments: Left inguinal hernia remains reduced
[2022-06-10 08:00] VITALS: BP 132/71; PULSE 72; PULSE 83; RESP 18; TEMP 36.6; O2SAT 93
--- NOTE | 2022-06-10 09:04 | HMH.ACPN2 ---
<Lauryn Kumar - Last Filed: 06/10/22 09:04> Internal Medicine - PN: Subj *Date: 06/10/22 *Time: 09:04 Interval history: Patient states he is feeling well this morning. He slept throughout the night and did have some clear liquids this morning. He wants to go home. He denies any abdominal pain. Exam Vital signs and Labs for Last 24 Hours: Temp Pulse Resp BP Pulse Ox 97.9 F 83 18 132/71 93 L 06/10/22 08:00 06/10/22 08:00 06/10/22 08:00 06/10/22 08:00 06/10/22 08:00 I & O for Last 24 hours: Intake & Output 06/07/22 06/08/22 06/09/22 06/10/22 11:59 11:59 11:59 11:59 Intake Total 3094 / 3094 3097 / 3097 Output Total 120 / 120 1750 / 1750 Balance -120 / -120 1344 / 1344 3097 / 3097 Weight 156 lb 155 lb 3.2 oz 153 lb 4.8 oz - Constitutional no acute distress - *Routine Respiratory Exam Present: CTA bilaterally - *Routine Cardiovascular Exam Present: RRR - *Routine Abdominal Exam Present: soft, normoactive bowel sounds. Absent: tenderness - *Routine Extremities Exam Absent: cyanosis, clubbing, edema - *Routine Skin Exam Present: warm. Absent: rash - *Routine Neurological Exam Present: alert, oriented X3 Assessment and Plan (1) Incarcerated left inguinal hernia Status: Acute Category: Medical Code(s): K40.30 - Unilateral inguinal hernia, with obstruction, without gangrene, not specified as recurrent (2) Small bowel obstruction Status: Acute Category: Medical Code(s): K56.609 - Unspecified intestinal obstruction, unspecified as to partial versus complete obstruction (3) Chronic renal insufficiency, stage V Status: Chronic Category: Medical Code(s): N18.5 - Chronic kidney disease, stage 5 (4) DYLLAN (acute kidney injury) Status: Acute Category: Medical Code(s): N17.9 - Acute kidney failure, unspecified (5) Acute on chronic renal failure Status: Acute Qualifiers: Acute renal failure type: unspecified Chronic kidney disease stage: stage 4 (severe) Qualified Code(s): N17.9 - Acute kidney failure, unspecified; N18.4 - Chronic kidney disease, stage 4 (severe) Category: Medical Code(s): N17.9 - Acute kidney failure, unspecified; N18.9 - Chronic kidney disease, unspecified (6) GERD (gastroesophageal reflux disease) Status: Chronic Category: Medical Code(s): K21.9 - Gastro-esophageal reflux disease without esophagitis (7) Pacemaker Status: Chronic Category: Medical Code(s): Z95.0 - Presence of cardiac pacemaker (8) CAD (coronary artery disease) Status: Chronic Category: Medical Code(s): I25.10 - Atherosclerotic heart disease of [place] coronary artery without angina pectoris (9) CHF (congestive heart failure) Status: Chronic Qualifiers: Heart failure type: unspecified Heart failure chronicity: acute on chronic Qualified Code(s): I50.9 - Heart failure, unspecified Category: Medical Code(s): I50.9 - Heart failure, unspecified (10) History of renal stent Status: Chronic Category: Surgical (11) Hx of lymphoma Status: Chronic Category: Medical Code(s): Z85.72 - Personal history of non-Hodgkin lymphomas (12) PAD (peripheral artery disease) Status: Chronic Category: Medical Code(s): I73.9 - Peripheral vascular disease, unspecified - Assessment and plan all Dx Assessment and Plan for all problems:: Patient stable to be discharged home today. <Alex Patiño - Last Filed: 06/10/22 18:16> Internal Medicine - PN: Subj *Date: 06/10/22 *Time: 18:14 Exam Vital signs and Labs for Last 24 Hours: Temp Pulse Resp BP Pulse Ox 97.9 F 83 18 132/71 93 L 06/10/22 08:00 06/10/22 08:00 06/10/22 08:00 06/10/22 08:00 06/10/22 08:00 I & O for Last 24 hours: Intake & Output 06/08/22 06/09/22 06/10/22 06/11/22 11:59 11:59 11:59 11:59 Intake Total 3094 / 3094 4393 / 4393 Output Total 120 / 120 1750 / 1750 Balance -120 / -120 1344 / 1344 4393 / 4
--- NOTE | 2022-06-12 23:28 | HMH.DCSUM ---
General - General Admission date:: 06/08/22 <Alex Patiño - 06/16/22 22:40> 06/08/22 <Lauryn Kumar - 06/12/22 23:34> Discharge date: 06/10/22 <Lauryn Kumar - 06/12/22 23:34> HPI HPI: Mr. Graff is an 89-year-old male with a history of bilateral renal stents followed by urology, chronic kidney disease followed by nephrology, degenerative disc disease, coronary artery disease followed by cardiology with CHF, COPD, hypertension, history of lymphoma, chronic pain followed by [place] pain [facility], and peripheral vascular disease. He presented to [facility] emergency room after experiencing severe abdominal pain for the last 24 to 48 hours. Progressively worsened and thus his presentation. In the emergency room he had CT of the abdomen with the following results: IMPRESSION: 1. Exam demonstrates features of small bowel obstruction. Transition point appears to be a direct right inguinal hernia containing loops of bowel and fluid. 2. Bilateral ureteral pigtail stents are in expected positions. 3. Progressive thick-walled fluid collection surround the prosthetic right hip, eroding the greater trochanter. Finding has progressed over the last 2 years. Consider orthopedic consultation on a nonemergent basis. 4. Additional chronic findings are detailed above. With evaluation in the emergency room he was found to be afebrile. White blood cell count was 11,800. Electrolytes were normal. Renal function showed a BUN of 34 and creatinine of 2.7. He received a liter of IV fluids along with IV Pepcid, Reglan and morphine for pain and Zofran for his nausea. He had an abnormal CT scan ; please see results. He was then admitted for further evaluation and treatment with a surgical consult. This a.m. patient continues to be in severe abdominal pain. He might be a little bit nauseated. He continues to belch. Bowels have not moved. He was given additional morphine for his pain along with Phenergan IV. <Lauryn Kumar - 06/12/22 23:34> Hospital Course Hospital Course: The patient was admitted and started on IV fluids, pain management, and GI rest. Surgery was consulted. He was seen by Dr. Ortiz who was able to reduce his hernia. He placed an NG tube to decompress his bowel and wanted to observe expectantly and hopefully not have to proceed with surgery. He was also seen in consultation by cardiology for his A. fib with rapid ventricular response. His rate control was achieved with 5 mg of IV metoprolol and cardiology recommended IV dosing all oral meds were being held. They recommended giving IV Lopressor as needed for sustained rates greater than 130 and to resume his home medications when he could. Dr. Ortiz had a long discussion with the patient concerning his hernia and the risk of incarceration. The patient had seen Dr. Urias earlier before admission and was in the process of planning laparoscopic repair. He had already undergone cardiac clearance for Dr. Urias and was scheduled to see anesthesia for final operative planning/clearance. Dr. Ortiz felt the patient did not require emergent intervention, but would require fairly urgent operative repair. The patient's NG tube was removed and he was started on a clear liquid diet. His diet was advanced and by 06/10/2022 he was feeling well and wanted to go home. He was stable to be discharged and will follow up with Dr. Urias in [place]. <Lauryn Kumar - 06/12/22 23:34> Objective Vital signs: Temp Pulse Resp BP Pulse Ox 97.9 F 83 18 132/71 93 L 06/10/22 08:00 06/10/22 08:00 06/10/22 08:00 06/10/22 08:00 06/10/22 08:00 <Alex Patiño - 06/16/22 22:40> Temp Pulse Resp BP Pulse Ox 97.9 F 83 18 132/71 93 L 06/10/22 08:00 06/10/22 08:00 06/10/22 08:00 06/10/22 08:00 06/10/22 08:00 <Lauryn Kumar - 06/12/22 23:34> Narrative: - Constitutional no acute distress - *Routine Respirat
--- NOTE | 2022-06-13 14:37 | CARE MANAGER ---
Spoke with patient for post-discharge phone interview. Patient states that he is good and has no complaints. Patient is aware of appointment with Dr. Patiño in June.
== END 2022-06-10 11:55 | disposition home or self-care (01) | DRG 389 ==
LOC: ER 02:27 → ICU 04:13 → 2ND 06-09 18:17
PROVIDERS: Admitting Provider Family Medicine; Emergency Provider Emergency Medicine; PCP Family Medicine; Visit Provider Family Medicine
DX: K56.609 Unspecified intestinal obstruction, unspecified as to partial versus complete obstruction (principal); I13.0 Hypertensive heart and chronic kidney disease with heart failure and stage 1 through stage 4 chronic kidney disease, or unspecified chronic kidney disease; N18.5 Chronic kidney disease, stage 5; K40.30 Unilateral inguinal hernia, with obstruction, without gangrene, not specified as recurrent; N17.9 Acute kidney failure, unspecified; N18.4 Chronic kidney disease, stage 4 (severe); K46.0 Unspecified abdominal hernia with obstruction, without gangrene; I50.9 Heart failure, unspecified; Z95.0 Presence of cardiac pacemaker; Z79.899 Other long term (current) drug therapy; Z20.822 Contact with and (suspected) exposure to COVID-19; I48.0 Paroxysmal atrial fibrillation; Z99.81 Dependence on supplemental oxygen; J44.9 Chronic obstructive pulmonary disease, unspecified; E11.22 Type 2 diabetes mellitus with diabetic chronic kidney disease; I25.10 Atherosclerotic heart disease of native coronary artery without angina pectoris; Z95.5 Presence of coronary angioplasty implant and graft; Z95.828 Presence of other vascular implants and grafts; Z85.72 Personal history of non-Hodgkin lymphomas; E11.51 Type 2 diabetes mellitus with diabetic peripheral angiopathy without gangrene; G89.29 Other chronic pain; K21.9 Gastro-esophageal reflux disease without esophagitis; I25.2 Old myocardial infarction
CPT/HCPCS: 74176; 80053; 81001; 82150; 82962; 83690; 84145; 85025; 85651; 86140; 93005; 99285; C9803; J2405; U0003; U0005

== ENCOUNTER 2022-09-17 15:58 | Inpatient (IN) | payer MEDICARE, BC, SELFPAY ==
[2022-09-17] VITALS (14 sets, daily range): BP systolic 78–107; BP diastolic 31–65; PULSE 60–127; RESP 18–28; TEMP 36.9–37.3; O2SAT 92–97; BMI 14.3; BMI 20.7; BMI 21.5
--- NOTE | 2022-09-17 16:13 | ECG_ITS ---
APPROVED REPORT Exam: Resting ECG HR:101 bpm ECG Measurements Heart Rate 101 AXES QRSd 125 QRS -76 QT 353 T 107 QTc 411 Conclusion ATRIAL FIBRILLATION WITH RAPID VENTRICULAR RESPONSE INFERIOR MYOCARDIAL INFARCTION , PROBABLY OLD [40+ ms Q WAVE AND/OR ST/T ABNORMALITY IN II/aVF] ANTEROSEPTAL MYOCARDIAL INFARCTION , OF INDETERMINATE AGE [40+ ms Q WAVE IN V1-V4] MODERATE T-WAVE ABNORMALITY, CONSIDER LATERAL ISCHEMIA [-0.1+ mV T-WAVE IN I/aVL/V5/V6] ABNORMAL ECG UNCONFIRMED REPORT Electronically signed by : Ryan Aviles MD 09/18/2022 21:19:35
[2022-09-17 16:26] LABS: ABG Base Excess -10.7 mmol/L (-2.4-2.3); ABG HCO3 14.1 mmhg (22.0-26.0); ABG Oxygen Saturation 93 % (90-100); ABG PCO2 23.3 mmhg (35.0-45.0); ABG PO2 74.8 mmhg (80-100); ABG TCO2 14.8 mmhg (23-27)
[2022-09-17 16:27] LABS: Allen's Test Non Applicable; Source Right Femoral
--- NOTE | 2022-09-17 16:49 | XR_ITS ---
PROCEDURE INFORMATION: Exam: XR Chest Exam date and time: 09/17/2022 5:33 PM Age: 82 years old Clinical indication: Other: AMS, possible fall TECHNIQUE: Imaging protocol: Radiologic exam of the chest. Views: 1 view. COMPARISON: CR XR CHEST 2V 04/05/2022 11:24 AM FINDINGS: Tubes, catheters and devices: Left subclavian pacemaker lead overlies the right ventricle. Lungs: Left lower lobe atelectasis new from comparison. Pleural spaces: Unremarkable. No pleural effusion. No pneumothorax. Heart/Mediastinum: CABG. Bones/joints: Unremarkable. IMPRESSION: Left lower lobe atelectasis new from comparison.
--- NOTE | 2022-09-17 16:50 | XR_ITS ---
PROCEDURE INFORMATION: Exam: XR Pelvis Exam date and time: 09/17/2022 5:33 PM Age: 82 years old Clinical indication: Pelvic pain; Additional info: Pain with movement-- unable to pinpoint spot-- ams-- critical low gfr TECHNIQUE: Imaging protocol: Radiologic exam of the pelvis. Views: 1 or 2 view. COMPARISON: CT ABDOMEN PELVIS WO CON 09/17/2022 5:32 PM FINDINGS: Bones/joints: Right hip arthroplasty. Soft tissues: Unremarkable. Vasculature: Aortoiliac endoprosthesis. Other findings: Bilateral double-J stents. Cerrato catheter in the bladder. IMPRESSION: No acute findings.
--- NOTE | 2022-09-17 16:54 | PC.NURSE ---
Skin assessment: abrasion to top of R foot skin tear to R AC area skin tear to L forearm stage 1 pressure sore to L buttock, skin is dark red in color, no break in skin noted roly heels have stage 1 ulcerations, dark red/purple in color, no break in skin noted Red markings on L posterior rib cage area, bruising like areas, also down spine in lower tspine/lspine area dark red line of color noted possibly from pressure.
[2022-09-17 16:59] LABS: Microscopic, Urine URINE MICROSCOPIC (MICROSCOPIC)
[2022-09-17 17:01] LABS: Occult Blood,Stool Negative (Negative)
--- NOTE | 2022-09-17 17:04 | PC.NURSE ---
pedal pulses doppler only bilaterally swelling noted to R foot/ankle area- non pitting
--- NOTE | 2022-09-17 17:06 | PC.NURSE ---
approx 1635 repeat fsbs, result of 47 notified ER MD, verbal order for 1 amp of d50 per IV received from ER MD.
[2022-09-17 17:08] LABS: Chloride 101 mmol/L (98-107); Potassium 5.7 mmoL/L (3.5-5.1); Sodium 140 mmol/L (136-145)
[2022-09-17 17:10] LABS: Amylase 48 U/L (30-110)
[2022-09-17 17:11] LABS: Alanine Aminotransferase 45 U/L (12-78); Albumin Level 2.5 g/dl (3.5-5.0); Albumin/Globulin Ratio 0.9 (1.1-1.8); Alkaline Phosphatase 169 U/L (38-126); Anion Gap 26.7 mEq/L (5-15); Aspartate Amino Transferase 103 U/L (17-59); Bilirubin,Total 1.3 mg/dl (0.2-1.3); Calcium 7.4 mg/dl (8.4-10.2); Carbon Dioxide 18 mmol/L (22.0-30.0); Creatinine Clearance Estimated 6 mL/min (50-200); Estimated Glomerular Filt Rate 8 ml/min (>60); GFR (African American) 10 ML/MIN (>60); Globulin 2.9 g/dL (1.3-3.2); Glucose 89 mg/dl (74-100); Lipase 12 U/L (23-300); Total Protein,Serum 5.4 g/dl (6.3-8.2)
[2022-09-17 17:15] LABS: Blood Urea Nitrogen 92 mg/dl (9-20)
--- NOTE | 2022-09-17 17:18 | PC.NURSE ---
pt coughed up think yellow sputum while I was in the room with pt, had to wipe sputum out of pts mouth
--- NOTE | 2022-09-17 17:22 | PC.NURSE ---
notified ER of critical lactic acid, BUN, creatinine
--- NOTE | 2022-09-17 17:23 | PC.NURSE ---
rad at BS for portable xray
[2022-09-17 17:24] LABS: Basophils # 1.4 K/mm3 (0-0.2); Eosinophils # 0.1 K/mm3 (0.0-0.4); Eosinophils % 0.1 % (0.1-12.0); Hematocrit 28.7 % (42.0-52.0); Hemoglobin 8.4 g/dL (14.1-18.0); Mean Corpuscular HGB Conc 29.4 g/dL (31.8-35.4); Mean Corpuscular Hemoglobin 32.8 pg (27.0-31.2); Mean Corpuscular Volume 111.5 fl (80-94); Mean Platelet Volume 10.2 fl (7.4-10.4); Monocytes # 0.4 K/mm3 (0.1-1.0); Neutrophils # 32.9 K/mm3 (1.8-7.8); Neutrophils % 94.9 % (37.0-80.0); Platelet Count 101 K/mm3 (142-424); Red Blood Count 2.58 M/mm3 (4.60-6.20); White Blood Count 34.6 K/mm3 (4.8-10.8)
--- NOTE | 2022-09-17 17:26 | CT_ITS ---
PROCEDURE INFORMATION: Exam: CT Abdomen And Pelvis Without Contrast Exam date and time: 09/17/2022 5:32 PM Age: 82 years old Clinical indication: Abdominal pain; Generalized; Additional info: Fever, tender to the touch-- AMS and critical low gfr -- unable to give contrast or pinpoint source of pain due to AMS TECHNIQUE: Imaging protocol: Computed tomography of the abdomen and pelvis without contrast. Radiation optimization: All CT scans at this facility use at least one of these dose optimization techniques: automated exposure control; mA and/or kV adjustment per patient size (includes targeted exams where dose is matched to clinical indication); or iterative reconstruction. COMPARISON: CT ABDOMEN PELVIS WO CON 06/08/2022 2:49 AM FINDINGS: Heart: Moderate cardiomegaly again noted. Prominence of the interstitium at the lung bases. Small amount of airspace consolidation in the costophrenic angles. Pulmonary findings are more pronounced compared to previously. Liver: Normal. No mass. Gallbladder and bile ducts: Normal. No calcified stones. No ductal dilation. Pancreas: Normal. No ductal dilation. Spleen: Normal. No splenomegaly. Adrenal glands: Normal. No mass. Kidneys and ureters: Again noted are the bilateral ureteral stents. The stents are appropriately positioned. There is marked prominence of the right renal collecting system and moderate prominence of the left renal collecting system. Collecting system prominence is more pronounced in the interval. Stomach and bowel: Diverticula of the descending and sigmoid colon. Otherwise, unremarkable. No obstruction. No mucosal thickening. Appendix: No evidence for appendicitis. Normal diameter. No inflammation. Intraperitoneal space: Unremarkable. No free air. No significant fluid collection. Vasculature: Again noted is the aortic stent graft. Again noted are the fem-fem crossover graft. Patency of the stent/grafts can not be assessed without intravenous contrast. Lymph nodes: Unremarkable. No enlarged lymph nodes. Urinary bladder: Decompressed with a Cerrato catheter. Reproductive: Unremarkable as visualized. Bones/joints: Again noted is the right hip prosthesis. Again noted is the large fluid collection around the right hip. The collection is larger compared to previously. Again noted are old compression fractures of L2 and L5. No acute fractures. Soft tissues: Unremarkable. IMPRESSION: 1. Bilateral hydronephrosis, right larger than left with ureteral stents in place. Findings are concerning for stent obstruction. 2. Fluid density collection around a right hip prosthesis with the collection larger in the interval. The collection may represent a seroma, hematoma, or abscess. 3. Colonic diverticular disease without diverticulitis. 4. Findings at the lung bases may represent interstitial edema secondary to cardiac failure.
--- NOTE | 2022-09-17 17:26 | PC.NURSE ---
ct abd pelvis changed to non-contrast r/t pt GFR per ER MD order.
[2022-09-17 17:27] LABS: Appearance,Urine TURBID (Clear); Blood, Urine 3+ (Negative); Color,Urine BROWN (Yellow); Glucose,Urine (UA) Negative (Negative); Ketones,Urine TRACE (Negative); Leukocyte Esterase,Urine 2+ (Negative); Nitrate,Urine POSITIVE (Negative); PH,Urine 7.5 (5.0-8.5); Protein,Urine 3+ (Negative); Urobilinogen,Urine 0.2 EU/dl (0.2)
[2022-09-17 17:29] LABS: MANUAL DIFFERENTIAL MANUAL DIFFERENTIAL (MANUAL DIFF)
[2022-09-17 17:29] LABS: Bilirubin,Urine Negative (Negative)
--- NOTE | 2022-09-17 17:33 | HMH.EDAMS ---
Discharge Plan Disposition Patient Disposition: Admitted As Inpatient Chief Complaint: Altered Mental Status Clinical Impressions Clinical Impression: UTI (urinary tract infection), Acute renal failure (ARF), Severe sepsis with acute organ dysfunction, Septic shock, Elevated troponin, A-fib Discharge ED Provider: Lukasz Melo Altered Mental Status HPI General Chief Complaint: Altered Mental Status Stated Complaint: weakness Time Seen by Provider: 09/17/22 16:45 Mode of Arrival: EMS Source of Information: EMS Limitations: Altered Mental Status Description of Symptoms (Recalled from ER Triage Doc. by RN): Pt arrived per EMS, AMS. Pt is awake, oriented to person/place only. Pt hollers each time you move him. Per EMS report ems was called out to pt residence lastnight r/t weakness, pt refused transport. Call back today r/t ams and increased weakness. States fsbs was 48, gave pt 1 amp d50 for blood sugar, ems reports that helped to improve pts speech but he was still altered. EMS States pt wears O2 at 3L per [place] at home, pt was not on O2 when ems arrived, reports pt has SaO2 70. Pt arrived to ED on O2 at 4L per [place]. EMS also reports pt hypotensive for them, elveated HR with hx of pacemaker History of Present Illness HPI narrative: pt with progressive altered mental status over the last 2 days with dec po intake complaint: altered mental status Onset (ago): day(s) Timing confirmed by: family member Severity: moderate Consistency of symptoms: getting worse Associated symptoms: denies other symptoms Treatments prior to arrival: glucose Related Data Home Medications Medication Instructions Recorded Confirmed atorvastatin 40 mg tablet 40 mg PO HS Cholesterol 90 days 01/18/18 09/17/22 ##90 iron-vit C-vit F27-[id number] acid 100 1 each PO BID Supplement 05/13/18 06/08/22 mg-250 mg-25 mcg-1 mg tablet hydrocodone 7.5 mg-acetaminophen 1 - 2 tab PO Q6HP PRN Moderate To 10/13/18 06/08/22 325 mg tablet Severe Pain carvedilol 6.25 mg tablet 6.25 mg PO BID Hypertension 09/15/20 09/17/22 aspirin 81 mg tablet,delayed 81 mg PO DAILY HEART HEALTH 04/14/22 06/08/22 release bumetanide 1 mg tablet 1 mg PO DAILY Fluid 06/08/22 09/17/22 gabapentin 300 mg capsule 300 mg PO BID Pain 06/08/22 09/17/22 Previous Rx's Medication Instructions Recorded omeprazole magnesium 20 mg 20 mg PO DAILY Esophagitis #60 tabs 05/19/22 tablet,delayed release (Prilosec OTC) Allergies Allergy/AdvReac Type Severity Reaction Status Date / Time latex Allergy Verified 06/08/22 05:46 kidney dye Allergy Intermediate Other Uncoded 04/20/22 10:07 PFSH PFSH Social History Smoking Status: Unknown if ever smoked second hand exposure: Yes alcohol intake: never substance use type: denies use current occupational status: retired and disabled Travel in the last 8 weeks: None household members: spouse housing: house current occupational exposures/hazards: No caffeine: No ROS Obtained: Yes unobtainable due to mental status Physical Exam General General appearance: lethargic and other (confused ) Head Head exam: normocephalic Eye Eye exam: Present PERRL and EOMI; Absent scleral icterus ENT ENT exam: Present mucous membranes dry Neck Neck exam: Present trachea midline; Absent meningismus Respiratory Respiratory exam: Present other (dec bs bilat ); Absent respiratory distress Cardiovascular Cardiovascular exam: Present irregular rhythm and systolic murmur Abdominal Exam Abdominal exam: Present soft and tenderness; Absent guarding, rebound or rigidity exam: Present circumcised Extremities Exam Extremities exam: Present other (ignacio to ext ) Back Exam Back exam: Present other (pressure changes to back ) Neurological Exam Neurological exam: Present CN II-XII intact and other (confused ); Absent oriented X3 Skin Skin exam: Absent rash Medical Decision Making Medical Records Medical records reviewed: Yes
--- NOTE | 2022-09-17 17:34 | PC.NURSE ---
pt to CT at this time
[2022-09-17 17:36] LABS: RBC,Urine TNTC #/hpf (0-3); WBC,Urine TNTC #/hpf (0-3)
[2022-09-17 17:37] LABS: Bacteria,Urine 3+ /lpf
--- NOTE | 2022-09-17 17:44 | PC.NURSE ---
pt returned from CT at this time
--- NOTE | 2022-09-17 17:57 | PC.NURSE ---
pt significant other at BS, provided a stated weight of 145 lbs
[2022-09-17 18:00] LABS: Troponin I 1.42 ng/ml (0.00-0.034)
[2022-09-17 18:08] LABS: Coronavirus 19, PCR Not Detected (NotDetected); Influenza A, PCR Not Detected (NotDetected); Influenza B, PCR Not Detected (NotDetected)
[2022-09-17 18:17] LABS: Lymphocytes % 1 % (10-50); Monocytes % 1 % (2-9); Neutrophils % 98 % (42-76); Platelet Estimate Slight Decrease; Total Cells Counted 100
[2022-09-17 18:18] LABS: Macrocytosis 2+
[2022-09-17 18:29] LABS: POC Glucose,Bedside 123 (70-110)
--- NOTE | 2022-09-17 18:32 | PC.NURSE ---
notified ER [facility] adjusted pt Ertapenam dose to 0.5g, ER requested we call to clarify that r/t pt being treated for sepsis and this is pts first dose of antibiotics. spoke with fanny at [facility] states yes r/t renal function dose would be 0.5g IV of Ertampenam. Notified ER
--- NOTE | 2022-09-17 18:40 | PC.NURSE ---
approx 1830- fsbs 123
--- NOTE | 2022-09-17 18:47 | PC.NURSE ---
Dr Bria valencia
--- NOTE | 2022-09-17 18:51 | PC.NURSE ---
TANIA OWUSU speaking with dr. asif
--- NOTE | 2022-09-17 19:05 | PC.NURSE ---
notified warehouse insulation worker of admission, place pt in stepdown per dr. asif request
--- NOTE | 2022-09-17 19:15 | PC.NURSE ---
shift change report given to pebblesrn
[2022-09-17 20:03] LABS: Reflex Lactic Add Lactic Reflex
--- NOTE | 2022-09-17 20:12 | PC.NURSE ---
PT ARRIVED TO FLOOR VIA STRETCHER @ 2004.
[2022-09-17 20:18] LABS: Lactic Acid Follow Up (RFLX 1) 2.7 mmol/L (0.7-2.1)
[2022-09-17 21:05] LABS: Troponin I 1.64 ng/ml (0.00-0.034)
--- NOTE | 2022-09-17 21:36 | EXP.HP ---
History of Present Illness *Admission Date: 09/17/22 *Reason for visit:: Altered mental status. *History of present illness: Mr Graff is an 82 year old male with numerous chronic medical problems. Dr. Patiño's H&P from May of 2022 sums it up well as follows. Mr. Graff is an 82-year-old male with a history of bilateral renal stents followed by urology, chronic kidney disease followed by nephrology, degenerative disc disease, coronary artery disease followed by cardiology with CHF, COPD, hypertension, history of lymphoma, chronic pain followed by [place] pain management, and peripheral vascular disease. Today Mr. Graff was brought to [facility] ER via EMS due to altered mental status. Spoke to his significant other and she states EMS was called to his home yesterday for the same issues but he refused treatment. Today he was weaker and more confused. FSBS was 48 on their evaluation, an amp of D50 was given which helped with some of his issues but not all. The patient finally agreed to come to the hospital for further evaluation. [facility] Medical History (Updated 09/17/22 @ 22:17 by Max Fraser MD) A-fib Anemia CAD (coronary artery disease) CHF (congestive heart failure) Chronic kidney disease COPD (chronic obstructive pulmonary disease) DJD (degenerative joint disease), cervical DM type 2 (diabetes mellitus, type 2) DVT (deep venous thrombosis) GERD (gastroesophageal reflux disease) HTN (hypertension) Hx of lymphoma Kidney stones Myocardial infarct Neuropathy Pacemaker PAD (peripheral artery disease) Septic shock Small bowel obstruction Streptococcal bacteremia Thrombocytopenia Ureteral stent occlusion Surgical History (Updated 09/17/22 @ 21:51 by Max Fraser MD) History of coronary artery stent placement History of inguinal hernia repair History of renal stent History of total right hip arthroplasty Hx of CABG Hx of cardiac cath Family History (Updated 09/17/22 @ 21:51 by Max Fraser MD) Cancer Social History (Updated 09/17/22 @ 21:52 by Max Fraser MD) Smoking Status: Former smoker pack-years: 32 second hand exposure: Yes alcohol intake: never substance use type: denies use current occupational status: retired and disabled Travel in the last 8 weeks: None household members: spouse housing: house current occupational exposures/hazards: No caffeine: No Review of Systems Review of Systems Review of systems:: unable to obtain Meds Home Medications and Allergies Home Medications Medication Instructions Recorded Confirmed Type atorvastatin 40 mg tablet 40 mg PO HS Cholesterol 90 days 01/18/18 09/17/22 History ##90 iron-vit C-vit B32-[id number] acid 100 1 each PO BID Supplement 05/13/18 06/08/22 History mg-250 mg-25 mcg-1 mg tablet hydrocodone 7.5 mg-acetaminophen 1 - 2 tab PO Q6HP PRN Moderate To 10/13/18 06/08/22 History 325 mg tablet Severe Pain carvedilol 6.25 mg tablet 6.25 mg PO BID Hypertension 09/15/20 09/17/22 History aspirin 81 mg tablet,delayed 81 mg PO DAILY HEART HEALTH 04/14/22 06/08/22 History release omeprazole magnesium 20 mg 20 mg PO DAILY Esophagitis #60 tabs 05/19/22 06/08/22 Rx tablet,delayed release (Prilosec OTC) bumetanide 1 mg tablet 1 mg PO DAILY Fluid 06/08/22 09/17/22 History gabapentin 300 mg capsule 300 mg PO BID Pain 06/08/22 09/17/22 History New Prescriptions to Start Prescriptions: Allergies Allergy/AdvReac Type Severity Reaction Status Date / Time latex Allergy Verified 06/08/22 05:46 kidney dye Allergy Intermediate Other Uncoded 04/20/22 10:07 Exam Data for Last 24 hours Vital signs and Labs for Last 24 Hours: Temp Pulse Resp BP Pulse Ox 99.2 F 115 H 18 98/65 L 94 L 09/17/22 20:10 09/17/22 20:10 09/17/22 20:10 09/17/22 20:10 09/17/22 19:30 Laboratory Results - last 24 hr 09/17/22 16:06: WBC 34.6 H*, RBC 2.58 L, Hgb 8.4 L, Hct 28.7 L, MCV 111.5 H, MCH 32.8 H, MCHC 29.4 L, RDW 21.0
[2022-09-17 22:02] LABS: Reflex Lactic (2 hrs) Add Lactic Reflex
[2022-09-18] VITALS (7 sets, daily range): BP systolic 83–101; BP diastolic 44–72; PULSE 83–115; RESP 20–23; TEMP 36.2–36.7; O2SAT 91–100; BMI 22.1
[2022-09-18 00:02] LABS: Hematocrit 27.4 % (42.0-52.0); Hemoglobin 8.1 g/dL (14.1-18.0)
[2022-09-18 00:07] LABS: Lactic Acid Follow up (RFLX 2) 3.1 mmol/L (0.7-2.1)
[2022-09-18 00:23] LABS: Troponin I 1.68 ng/ml (0.00-0.034)
[2022-09-18 02:25] LABS: POC Glucose,Bedside 74 (70-110)
--- NOTE | 2022-09-18 05:44 | PC.NURSE ---
Pt was placed on levophed gtt shortly after arriving to floor. He is currently on 12 mcg/min. Pt is alert to self only. Has been tachycardic. Has remained afib. He is currently on 3L O2 [place] as he is at home. Urine remains tea colored with mucus noted. Skin tears, Bruises and abrasions noted to bilateral arms, back, bottom and feet. Medications administered per mar. call light within reach. safety measures in place.
--- NOTE | 2022-09-18 05:50 | PC.WOUNDNOTE ---
skin tear (R) arm Bruises to bilateral legs abrasion to (R) foot
--- NOTE | 2022-09-18 05:51 | PC.NURSE ---
Bruises to chest skin tears (L) arm Bruises (L) arm
--- NOTE | 2022-09-18 05:53 | PC.WOUNDNOTE ---
Bruise and abrasion to (R) side of head Bruise, DTI to bottom bruises to back
--- NOTE | 2022-09-18 05:55 | PC.WOUNDNOTE ---
Bruise to (R) foot (L) foot
--- NOTE | 2022-09-18 07:23 | EXP.ACUTE.PN ---
Subjective *Date: 09/18/22 *Time: 07:23 Interval history: No new issues reported overnight. Patient continues to be confused, slept very little, Levophed drip has been titrated up. Medical Exam Vital signs and Labs for Last 24 Hours: Vital Signs Temp Pulse Pulse Resp BP BP Pulse Ox 09/18/22 05:00 83 23 94/52 L 100 09/18/22 05:00 97.2 F L 09/18/22 04:00 90 09/18/22 04:00 97.8 F 88 22 88/50 L 100 09/18/22 02:00 104 H 22 101/72 L 97 09/18/22 00:00 115 H 20 92/44 L 100 09/17/22 22:00 113 H 28 H 89/59 L 92 L 09/17/22 21:00 98.4 F 101 H 24 107/31 L 97 09/18/22 00:00 115 H 09/18/22 00:00 98.1 F 09/17/22 20:30 100 H 09/17/22 20:10 99.2 F 115 H 18 98/65 L 09/17/22 19:30 115 H 98/65 L 94 L 09/17/22 19:15 120 H 92/56 L 94 L 09/17/22 19:00 109 H 20 89/57 L 96 09/17/22 18:44 102 H 20 92/58 L 96 09/17/22 18:15 122 H 18 86/65 L 96 09/17/22 17:56 60 24 90/60 L 96 09/17/22 17:31 122 H 18 81/52 L 94 L 09/17/22 17:15 122 H 18 91/58 L 96 09/17/22 16:31 62 20 78/55 L 97 09/17/22 15:59 99.2 F 127 H 18 103/62 L 97 Intake and Output 09/17/22 09/17/22 09/18/22 15:59 23:59 07:59 Intake Total 186 / 1865 Output Total 375 / 375 Balance 1490 / 1490 Intake: Intake, Total IV Amount 186 / 186 0.9 % Sodium Chloride 1,000 ml 1719 / 1719 @ 200 mls/hr IV .Q5H [facility] Rx#: [id number] Norepinephrine Bitartrate 8 mg 146 / 146 In Dextrose 5 % in Water 250 ml @ 2 MCG/MIN 3.87 mls/hr IV . Q24H [facility] Rx#:[id number] Output: Output, Urine Amount 375 / 375 Other: Number of Unmeasured Voids 0 0 Weight 99 lb 15.674 oz 150 lb 7 oz 154 lb 5 oz Patient Weight 09/18/22 23:59 Weight 154 lb 5 oz Laboratory Results - last 24 hr 09/17/22 16:06: WBC 34.6 H*, RBC 2.58 L, Hgb 8.4 L, Hct 28.7 L, MCV 111.5 H, MCH 32.8 H, MCHC 29.4 L, RDW 21.0 H, Plt Count 101 L, MPV 10.2, Neut % (Auto) 94.9 H, Lymph % (Auto) 0.0 L, Alcorn % (Auto) 1.0 L, Eos % (Auto) 0.1, Baso % (Auto) 4.0 H, Neut # (Auto) 32.9 H, Lymph # (Auto) 0.0 L, Alcorn # (Auto) 0.4, Eos # (Auto) 0.1, Baso # (Auto) 1.4 H, Total Counted 100, Neutrophils % (Manual) 98 H, Lymphocytes % (Manual) 1 L, Monocytes % (Manual) 1 L, Platelet Estimate Slight decrease, Macrocytosis 2+ 09/17/22 16:06: Sodium 140, Potassium 5.7 H, Chloride 101, Carbon Dioxide 18 L, Anion Gap 26.7 H, BUN 92 H, Creatinine 6.40 H, Estimated Creat Clear 6, Estimated GFR 8 L*, Est GFR ( Amer) 10 L*, Glucose 89, Calcium 7.4 L, Total Bilirubin 1.3, AST 103 H, ALT 45, Alkaline Phosphatase 169 H, Troponin I 1.42 H, Total Protein 5.4 L, Albumin 2.5 L, Globulin 2.9, Albumin/Globulin Ratio 0.9 L, Amylase 48, Lipase 12 L 09/17/22 16:06: Lactate 4.0 H 09/17/22 16:22: Specimen Source Right femoral, O2 % 3.5 l nc, ABG pH 7.40, ABG pCO2 23.3 L, ABG pO2 74.8 L, ABG HCO3 14.1 L, ABG Total CO2 14.8 L, ABG O2 Saturation 93, ABG Base Excess -10.7 L, Jones Test Non applicable 09/17/22 16:46: Urine Color Brown, Urine Appearance Turbid, Urine pH 7.5, Ur Specific Leonardo 1.020, Urine Protein 3+, Urine Glucose (UA) Negative, Urine Ketones Trace, Urine Blood 3+, Urine Nitrate Positive, Urine Bilirubin Negative, Urine Urobilinogen 0.2, Ur Leukocyte Esterase 2+ A, Urine RBC Tntc, Urine WBC Tntc, Urine Bacteria 3+ 09/17/22 16:46: Stool Occult Blood Negative 09/17/22 17:56: SARS-CoV-2 (PCR) Not detected, Influenza A Untype (PCR) Not detected, Influenza Type B (PCR) Not detected 09/17/22 18:22: POC Glucose 123 H 09/17/22 20:00: Troponin I 1.64 H 09/17/22 20:00: Lactate 2.7 H 09/17/22 23:40: Troponin I 1.68 H 09/17/22 23:40: Lactate 3.1 H 09/17/22 23:40: Hgb 8.1 L, Hct 27.4 L 09/18/22 02:17: POC Glucose 74 I & O for Labs for Last 24 Hours: Intake & Output 09/15/22 09/16/22 09/17/22 09/18/22 23:59 23:59 23:59 23:59 Intake Total 1865 / 186
[2022-09-18 08:23] LABS: Basophils # 0.1 K/mm3 (0-0.2); Basophils % 0.2 % (0.1-2.0); Hematocrit 29.9 % (42.0-52.0); Lymphocytes # 2.2 K/mm3 (0.7-4.5); Lymphocytes % 6.1 % (10-50); Mean Corpuscular HGB Conc 30.2 g/dL (31.8-35.4); Mean Corpuscular Volume 112.6 fl (80-94); Mean Platelet Volume 11.3 fl (7.4-10.4); Monocytes # 0.6 K/mm3 (0.1-1.0); Monocytes % 1.7 % (1.7-9.3); Neutrophils # 32.3 K/mm3 (1.8-7.8); Neutrophils % 91.9 % (37.0-80.0); Platelet Count 83 K/mm3 (142-424); Red Blood Count 2.66 M/mm3 (4.60-6.20); Red Cell Distribution Width 20.9 % (11.5-17.5); White Blood Count 35.1 K/mm3 (4.8-10.8)
[2022-09-18 08:26] LABS: MANUAL DIFFERENTIAL MANUAL DIFFERENTIAL (MANUAL DIFF)
[2022-09-18 08:29] LABS: Chloride 108 mmol/L (98-107); Sodium 140 mmol/L (136-145)
[2022-09-18 08:32] LABS: Anion Gap 23.5 mEq/L (5-15); Calcium 6.5 mg/dl (8.4-10.2); Carbon Dioxide 15 mmol/L (22.0-30.0); Glucose 52 mg/dl (74-100)
[2022-09-18 08:39] LABS: Creatinine Clearance Estimated 10 mL/min (50-200); Estimated Glomerular Filt Rate 9 ml/min (>60); GFR (African American) 11 ML/MIN (>60)
[2022-09-18 08:52] LABS: Blood Urea Nitrogen 89 mg/dl (9-20); Potassium 6.5 mmoL/L (3.5-5.1)
--- NOTE | 2022-09-18 08:59 | PC.NURSE ---
recvd call from lab for critical lab results of K+ 6.5, BUN 89, Creatinine 5.9 Dr. Fraser notified .
--- NOTE | 2022-09-18 09:14 | EXP.DEATH.NO ---
Pronouncement Note Date and Time of Date of : 09/18/22 Time of : 08:53 PCOD Preliminary cause of : Sepsis Contributing Factors (1) UTI (urinary tract infection): (2) Acute renal failure (ARF): (3) HTN (hypertension): (4) CAD (coronary artery disease): (5) Leukocytosis: (6) GERD (gastroesophageal reflux disease): (7) History of renal stent: (8) PAD (peripheral artery disease): (9) Severe sepsis with acute organ dysfunction: (10) Elevated troponin: (11) A-fib: (12) AMS (altered mental status): (13) Septic shock: (14) DM type 2 (diabetes mellitus, type 2): (15) MSOF (multiple systems organ failure): (16) Elevated LFTs: (17) Elevated lactic acid level: (18) COPD (chronic obstructive pulmonary disease): (19) Hypotension: (20) Acute on chronic renal failure: Additional Data Confirmation of : no pulse, no respirations, no heart sounds and pupils fixed and dilated Attending physician: Max Fraser MD
--- NOTE | 2022-09-18 09:19 | PC.NURSE ---
Addendum entered by Soumya Abrams RN 09/18/22 09:28: ruled out as case for LAMBERTO. spoke with Soumya Ford Addendum entered by Soumya Abrams RN 09/18/22 09:21: ruled out as a coroners case by Wali Shah at 0921 Lamberto Called at 0922 Original Note: Contacted Damage Inside Adjuster at this time r/t pt being a coroners case [id number]
[2022-09-18 12:31] LABS: Eosinophils % 1 % (0-3); Lymphocytes % 2 % (10-50); Neutrophils % 75 % (42-76); Total Cells Counted 100
[2022-09-18 12:32] LABS: Burr Cells 1+; Macrocytosis 2+; Platelet Estimate Moderate Decrease; Toxic Vacuolation 1+
--- NOTE | 2022-09-18 13:01 | PC.NURSE ---
THIS MORNING AT 0842 PT WAS GETTING A BATH PER NURSING STAFF. PT HAD RANDOM SPEECH DURING THE BATH. YELLED FOR HIS MOTHER SEVERAL TIMES AND STATED OHH LORD . WHEN PT WAS TURNED OVER ON HIS LEFT SIDE HIS HEART RATE DROPPED TO 40. DESATTED TO THE 70'S. AGONAL BREATHING AND PT WAS NO LONGER RESPONDING. JACOBY RED WAS CALLED. HOSPITALIST WAS AT BEDSIDE WITH NURSING STAFF. AT 0847 PT WAS IN [place]. CODE BLUE WAS CALLED. PT'S SISTER WAS OUTSIDE THE ROOM AND CODE STATUS WAS ADDRESSED WITH HER AND LADARIUS EPPS (PT'S SIGNIFICANT OTHER) WAS NOTIFIED OVER THE PHONE AND THE DECISION WAS MADE TO FOR PT TO BE A DNR AND TO LET HIM PASS PEACEFULLY. PT WAS PRONOUNCED AT 0853. ERICK CALLED AT 0922. PT WAS RELEASED TO [facility] AT 1130.
--- NOTE | 2022-09-20 23:06 | EXP.DC.SUM ---
General Admission date:: 09/17/22 Discharge date: 09/18/22 HPI HPI HPI: Mr Graff is an 82 year old male with numerous chronic medical problems. Dr. Patiño's H&P from May of 2022 sums it up well as follows. Mr. Graff is an 82-year-old male with a history of bilateral renal stents followed by urology, chronic kidney disease followed by nephrology, degenerative disc disease, coronary artery disease followed by cardiology with CHF, COPD, hypertension, history of lymphoma, chronic pain followed by [place] pain management, and peripheral vascular disease. Today Mr. Graff was brought to [facility] ER via EMS due to altered mental status. Spoke to his significant other and she states EMS was called to his home yesterday for the same issues but he refused treatment. Today he was weaker and more confused. FSBS was 48 on their evaluation, an amp of D50 was given which helped with some of his issues but not all. The patient finally agreed to come to the hospital for further evaluation. Hospital Course Hospital Course Hospital Course: Patient was admitted for further evaluation and treatment of his severe sepsis with shock and multiple organ dysfunctions. He appeared to have a UTI with acute on chronic renal failure due to dehydration and sepsis. Cultures were taken and he received fluid bolus and was started on Invanz. He was hypotensive and Levophed was started as well. It was felt he had a poor prognosis. Dr. Fraser spoke with his significant other and informed her of the seriousness of his medical condition. He continued to remain confused and his Levophed drip had to be titrated up. His H&H was decreasing. The ER doctor was called on 09/18/2022 to pronounce the patient and his time of was 853. Exam Data for Last 24 hours Vital signs and Labs for Last 24 Hours: Temp Pulse Resp BP Pulse Ox 97.2 F L 95 H 20 83/52 L 91 L 09/18/22 05:00 09/18/22 08:00 09/18/22 08:00 09/18/22 08:00 09/18/22 08:00 I & O for Last 24 hours: Intake & Output 09/18/22 09/19/22 09/20/22 09/21/22 11:59 11:59 11:59 11:59 Intake Total 1865 / 1865 Output Total 375 / 375 Balance 1490 / 1490 Weight 154 lb 5 oz Microbiology Reports for the Last 24 Hours: Microbiology 09/17/22 16:46 Blood Blood Culture - Final Staphylococcus aureus 09/17/22 16:46 Blood Blood Culture - Final Staphylococcus aureus Narrative: Constitutional Constitutional: moderate distress and chronically ill appearing *Routine HEENT Exam Head: Present normocephalic Eye: Present EOMI and PERRL ENT: Present mucous membranes dry *Routine Neck Exam Neck: Present supple; Absent lymphadenopathy *Routine Respiratory Exam Respiratory: Present CTA bilaterally *Routine Cardiovascular Exam Cardiovascular: Present tachycardia and irregularly irregular *Routine Abdominal Exam Abdominal: Present soft and normoactive bowel sounds; Absent tenderness *Routine Rectal Exam Rectal:: deferred *Routine Genitalia Exam Genitalia:: deferred *Routine Extremities Exam Extremities: Absent cyanosis, clubbing or edema *Routine Skin Exam Skin: Present warm and ecchymosis (numerous on the arms with some skin tears as well); Absent rash *Routine Neurological Exam Neurological: Present alert and altered mental status (will follow a few commands but is confused); Absent oriented X3 DS: Diagnosis Discharge Diagnosis (1) UTI (urinary tract infection): Status: Acute (2) Acute renal failure (ARF): Status: Acute (3) HTN (hypertension): Status: Chronic (4) CAD (coronary artery disease): Status: Chronic (5) Leukocytosis: Status: Acute (6) GERD (gastroesophageal reflux disease): Status: Chronic (7) History of renal stent: Status: Chronic (8) PAD (peripheral artery disease): Status: Chronic (9) Severe sepsis with acute organ dysfunction: Status: Acute (10) E
== END 2022-09-18 11:30 | disposition expired | DRG 871 ==
LOC: ER 19:07 → 2ND 19:20
PROVIDERS: Admitting Provider Family Medicine; Emergency Provider Emergency Medicine; PCP Family Medicine; Visit Provider Family Medicine
DX: A41.9 Sepsis, unspecified organism; R65.21 Severe sepsis with septic shock; N39.0 Urinary tract infection, site not specified; N17.9 Acute kidney failure, unspecified; N18.4 Chronic kidney disease, stage 4 (severe); I13.0 Hypertensive heart and chronic kidney disease with heart failure and stage 1 through stage 4 chronic kidney disease, or unspecified chronic kidney disease; I25.10 Atherosclerotic heart disease of native coronary artery without angina pectoris; K21.9 Gastro-esophageal reflux disease without esophagitis; I48.91 Unspecified atrial fibrillation; E11.22 Type 2 diabetes mellitus with diabetic chronic kidney disease; I50.9 Heart failure, unspecified; E11.40 Type 2 diabetes mellitus with diabetic neuropathy, unspecified; E11.51 Type 2 diabetes mellitus with diabetic peripheral angiopathy without gangrene; Z85.72 Personal history of non-Hodgkin lymphomas; Z95.1 Presence of aortocoronary bypass graft; E86.0 Dehydration; J44.9 Chronic obstructive pulmonary disease, unspecified
CPT/HCPCS: 36415; 51702; 71045; 72170; 74176; 80048; 80053; 81001; 82150; 82272; 82803; 82962; 83605; 83690; 84484; 85007; 85014; 85018; 85025; 87040; 87077; 87086; 87088; 87186; 93005; C9803; G0328; J1335; U0003; U0005